=== PATIENT | female | born 1945 | race Caucasian/White ===

== ENCOUNTER → 2018-01-13 17:06 | Outpatient (CLI) | payer MEDICARE, OTHER, SELFPAY ==
--- NOTE | 2018-01-13 17:22 | RAD_ITS ---
STUDY: X-RAY - CERVICAL SPINE REASON FOR EXAM: Female, 72 years old. In both hands for about 1 year now. TECHNIQUE: 4 view(s) of the cervical spine were obtained. COMPARISON: None FINDINGS: Normal anterior atlantoaxial articulation. Normal odontoid process. There is straightening of the normal cervical lordosis. There is multi-level endplate spondylosis. There is multi-level degenerative disc disease with multilevel disc space narrowing. There is multi-level osseous foraminal stenosis. The soft tissue structures are unremarkable. RAD/Cerv Spine 2 or 3 Views IMPRESSION: There are degenerative changes as noted above. Electronically Signed: Hieu Drew MD at 18:29 EDT , Service support ,
== END ==
PROVIDERS: Family Provider Internal Medicine; PCP Internal Medicine; Visit Provider Anesthesiology Pain Medicine
DX: M79.603 Pain in arm, unspecified (principal)
CPT/HCPCS: 72040

== ENCOUNTER → 2018-11-08 | Outpatient (CLI) | payer MEDICARE, OTHER, SELFPAY ==
[2014-11-19 09:37] VITALS: BMI 25.0
--- NOTE | 2018-11-08 17:12 | RAD_ITS ---
STUDY: X-RAY - PELVIS AND BILATERAL HIPS REASON FOR EXAM: Pain mostly in the right hip radiating into right groin, no specific injury. TECHNIQUE: AP view of the pelvis.? 2 views of the right hip, and 2 views of the left hip were obtained. COMPARISON: Radiograph report 03/24/2011. FINDINGS: There is a small pelvic phlebolith. Normal bilateral iliac wings, sacroiliac joints and visualized sacrum. Normal bilateral superior and inferior pubic rami. Normal pubic symphysis. Normal bilateral ischial tuberosities. Normal right acetabulum. There is an osteophyte of the right femoral head, subchondral eburnation of the right femoral head and moderately severe joint space narrowing of the superomedial right hip joint. Normal visualized left femoral head. Normal left acetabulum. Normal left hip joint. RAD/Hips B/L min 2 views w/ Pelvis IMPRESSION: Right hip arthrosis. Electronically Signed: Shalom Jennings MD at 15:51 EDT Tel , Service support ,
== END | disposition home or self-care (01) ==
LOC: RAD 17:07
PROVIDERS: Family Provider Internal Medicine; PCP Internal Medicine; Referring Provider Anesthesiology Pain Medicine; Visit Provider Anesthesiology Pain Medicine
DX: M25.552 Pain in left hip (principal); M25.551 Pain in right hip
CPT/HCPCS: 73521

== ENCOUNTER 2019-02-26 18:25 | Emergency (ER) | payer MEDICARE, OTHER, SELFPAY ==
[2019-02-26 18:26] VITALS: BP 121/59; PULSE 79; RESP 22; TEMP 36.3; O2SAT 98; BMI 27.4
--- NOTE | 2019-02-26 18:56 | ED.VIS.GEN ---
History of Present Illness Chief Complaint: Cough Detail of Chief Complaint: Congestion and cough Informant: Patient Onset: Weeks Context: Gradual Onset Current Severity: Moderate Maximum Severity: Moderate Narrative: Patient states that a couple times a year she will get sinus congestion and drainage down her throat. She typically takes Mucinex and it resolves. She started with the symptoms approximately a week ago but is not getting relief with her Mucinex. She has chest congestion with dry cough. She has not noted fever or chills. Today she started getting left ear pain. Past Medical History - Allergies and Home Meds Allergies/Adverse Reactions: Allergies citalopram Adverse Reaction (Verified 02/26/19 18:26) Other fluoxetine Adverse Reaction (Verified 02/26/19 18:26) Other sertraline Adverse Reaction (Verified 02/26/19 18:26) Other ANXIOUS venlafaxine HCl [From Effexor] Adverse Reaction (Verified 02/26/19 18:26) Other Primary Care Physician: Gloria Morales MD [Primary Care Provider] - Prior records reviewed: Yes Past Medical History: - - Reviewed Smoking Status: Never smoker Review of Systems General: Denies: Chills, Fever Eyes: Denies: Visual changes - bilaterally ENT: Reports: Left ear pain Cardiovascular: Denies: Chest pain Respiratory: Reports: Cough. Denies: Dyspnea, Sputum Gastrointestinal: Denies: Abdominal pain, Nausea, Vomiting, Diarrhea Genitourinary: Denies: Dysuria Musculoskeletal: Denies: Myalgias Skin: Denies: Rash Neurological: Denies: Headache Endocrine: Denies: Polyuria, Polydipsia Hematologic: Denies: Easy bruising Allergy: Denies: Uticaria Physical Exam Vital Signs/Narrative: Vital Signs Temp Pulse Resp BP Pulse Ox 02/26/19 18:26 97.4 F L 79 22 H 121/59 H 98 Inital Vital Signs reviewed: Yes General: Well nourished, Well developed Head: Normocephalic, Atraumatic Eyes: Perrl, EOMI ENT: Moist mucous membranes, TM's clear, - - Mild posterior pharyngeal drainage. Uvula midline. No edema noted. Neck: Supple Cardiovascular: Regular rate, Regular rhythm Respiratory: No distress, CTA bilaterally Abdomen: Soft, Nontender Back: Nontender Extremities: Nontender Skin: Normal color Neurological: Alert, Oriented x3 Psychological: Normal affect Diagnostic/Tx/Re-eval Impressions Chest X-Ray 02/26/19 19:08 IMPRESSION: Normal x-ray examination of the chest. Electronically Signed: Lety Bermudez MD at 19:37 EDT Tel , Service support , 02/26/19 19:08 Chest PA and Lateral [RAD] Stat - Medical Decision Making Test results discussed with the patient. We discussed the possibility of this being viral, but the patient has had symptoms for 1 week and continues to worsen. I will cover her with Zithromax for atypicals as well as give her Tessalon Perles for cough. ED Disposition - Plan for ED Patient: Disposition: Home or Assisted Living Instructions: BRONCHITIS, Antiobiotic Treatment (Adult) Prescriptions: Benzonatate [Tessalon Perle] 200 mg PO TID PRN PRN #20 capsule PRN Reason: Cough Azithromycin [Zithromax] 250 mg PO DAILY #4 tablet Referrals: Gloria Morales MD [Primary Care Provider] - 1 Week
--- NOTE | 2019-02-26 19:08 | RAD_ITS ---
STUDY: X-RAY CHEST REASON FOR EXAM: Female, 73 years old. Cough. TECHNIQUE: PA and lateral chest. COMPARISON: None. FINDINGS: The lungs are clear and expanded. There is no demonstrated pleural abnormality. Normal size heart. Normal mediastinum and dheeraj. Normal visualized pulmonary arteries. Normal visualized aortic arch and descending thoracic aorta. Normal visualized thoracic spine. Normal visualized ribs, clavicles, and shoulders. There is no demonstrated abnormality of the visualized soft tissue structures of the upper abdomen. RAD/Chest PA and Lateral IMPRESSION: Normal x-ray examination of the chest. Electronically Signed: Lety Bermudez MD at 19:37 EDT Tel , Service support ,
[2019-02-26] MEDS: Azithromycin 250 MG Tablet 500 MG PO (19:59)
[2019-02-26] MEDS: Benzonatate 100 MG Capsule PO (19:59)
[2019-02-26 20:00] VITALS: PULSE 80; RESP 20
== END 2019-02-26 20:02 | disposition home or self-care (01) ==
PROVIDERS: Emergency Provider Emergency Medicine; Family Provider Internal Medicine; PCP Internal Medicine
DX: J40 Bronchitis, not specified as acute or chronic (principal)
CPT/HCPCS: 71046; 99283

== ENCOUNTER → 2019-05-02 | Outpatient (CLI) | payer MEDICARE, OTHER, SELFPAY ==
[2019-05-02 10:19] VITALS: BMI 27.6
--- NOTE | 2019-05-02 10:55 | RAD_ITS ---
STUDY: X-RAY - PELVIS AND RIGHT HIP REASON FOR EXAM: Female, 73 years old. Preop TECHNIQUE: 4 views of the pelvis and hip. COMPARISON: Prior study of 11/08/2018 FINDINGS: There is a non-specific bowel gas pattern. Normal visualized soft tissue structures. Normal bilateral iliac wings, sacroiliac joints and visualized sacrum. Normal bilateral superior and inferior pubic rami. Normal pubic symphysis. Normal bilateral ischial tuberosities. There are moderate osteoarthritic changes with joint space narrowing of the right hip. There are mild osteoarthritic changes of the left hip. RAD/HIP, UNI W/ Pelvis 2-3 Views IMPRESSION: Moderately severe osteoarthritic changes of the right hip with joint space narrowing. Mild arthritic changes of the left hip. Electronically Signed: Rogelio Addison MD at 17:51 EDT , Service support ,
== END | disposition home or self-care (01) ==
LOC: RAD 10:50
PROVIDERS: Family Provider Internal Medicine; PCP Internal Medicine; Referring Provider Orthopaedic Surgery; Visit Provider Orthopaedic Surgery
DX: M16.11 Unilateral primary osteoarthritis, right hip (principal)
CPT/HCPCS: 73502

== ENCOUNTER → 2019-05-11 | Outpatient (CLI) | payer MEDICARE, OTHER, SELFPAY ==
[2019-05-10 11:26] VITALS: BMI 27.8
--- NOTE | 2019-05-12 14:08 | STRESSREP_ITS ---
Stress Test Report Date: 05/11/2019 Procedure: Pharmacologic stress nuclear imaging study Indications: Preoperative evaluation Consent: Per the patient Procedure: The patient underwent pharmacologic (Regadenoson) evaluation with a peak heart rate of 127 beats per minute (86 %predicted maximal heart rate) and a peak blood pressure of 122/70 mmHg. The baseline ECG demonstrated normal sinus rhythm, nonspecific ST-T changes. EKG during lexiscan infusion revealed no significant change from baseline. EKG post infusion revealed no significant ischemic changes [There were no cardiac dysrhythmias pretest, during pharmacologic infusion, or recovery]. Patient had some chest pressure after Lexiscan infusion which is likely a nonspecific response. The examination was discontinued secondary to completion of protocol. Impression: 1. Lexiscan stress test test is negative for Lexiscan infusion induced EKG changes of ischemia. 2. Lexiscan stress test test is positive for Lexiscan infusion induced chest pressure which could be a nonspecific response. 3. Results of the nuclear portion of the test is as below Myocardial perfusion imaging study: Technique: The patient was injected with 12 millicuries of technetium 99m Cardiolite and subsequently rest SPECT Cardiolite nuclear imaging was obtained in the horizontal long, vertical long, and short axis views. The patient underwent pharmacologic (Regadenoson) evaluation. Please see above for details. The patient was injected with 35 millicuries of technetium 99m Cardiolite and subsequently stress SPECT Cardiolite nuclear imaging was obtained in the horizontal long, vertical long, and short axis views. A gated Cardiolite study at peak stress was obtained. Interpretation: Rest and stress SPECT Cardiolite nuclear imaging status post realignment, normalization, and attenuation correction demonstrate overall normal myocardial radioisotope uptake. Gated images reveal no significant regional wall motion abnormalities. The reported LVEF is 72 %. Impression: 1. There is no evidence of significant ischemia or infarction. 2. Estimated ejection fraction is 72%. This note was generated with [employer] software. It may contain incorrect words, spelling, and punctuation that were not noted in checking the note before signing.
== END | disposition home or self-care (01) ==
LOC: CVS 06:55
PROVIDERS: Family Provider Internal Medicine; PCP Internal Medicine; Referring Provider Specialist; Visit Provider Specialist
DX: Z01.810 Encounter for preprocedural cardiovascular examination (principal); R94.31 Abnormal electrocardiogram [ECG] [EKG]
CPT/HCPCS: 78452; 93017; A9500; A4216; J2785

== ENCOUNTER 2019-05-16 06:59 | Inpatient (IN) | payer MEDICARE, OTHER, SELFPAY ==
[2019-04-10 14:24] VITALS: BMI 27.4
[2019-05-02 10:19] VITALS: BP 108/59; PULSE 61; RESP 16; TEMP 36.2; O2SAT 99; BMI 27.6
--- NOTE | 2019-05-02 10:27 | SDCEKG_ITS ---
Test Reason : Blood Pressure : / mmHG Vent. Rate : 058 BPM Atrial Rate : 058 BPM P-R Int : 146 ms QRS Dur : 074 ms QT Int : 424 ms P-R-T Axes : 021 -09 -19 degrees QTc Int : 416 ms Sinus bradycardia T wave abnormality, consider anterolateral ischemia Abnormal ECG Confirmed by MANNY WHITLOCK, CORY ([id number]), editor magazine SABINE DAY ([id number]) on 05/03/2019 2:40:44 PM Referred By: Domingo Stark Confirmed By:CORY BRYANT MD
[2019-05-02 10:52] LABS: Hematocrit 39.3 % (37-47); Hemoglobin 12.7 g/dL (12.0-15.0); Mean Corp Hgb Conc 32.3 g/dL (32-36); Mean Corpuscular Hgb 29.8 pg (27.0-32.0); Mean Corpuscular Volume 92.3 fL (81-99); Platelet Count 229 K/mm3 (150-450); RBC Distribution Width CV 13.5 % (11.6-14.6); RBC Distribution Width SD 46.1 fl (35.1-43.9); Red Blood Count 4.26 M/mm3 (4.2-5.4); White Blood Count 7.5 K/mm3 (4.4-11.0)
[2019-05-02 11:00] LABS: International Normalized Ratio 1.1; Partial Thromboplast Time 27.1 Seconds (24.1-36.2); Prothrombin Time (Protime)PT. 13.5 SECONDS (11.7-14.9)
[2019-05-02 11:14] LABS: AST(SGOT) 24 U/L (15-37); Alanine Aminotransfer ALT/SGPT 38 U/L (13-56); Albumin, Serum 3.8 g/dL (3.2-5.0); Alkaline Phosphatase 78 U/L (45-117); Anion Gap 4 (5-15); BUN 26 mg/dL (7-18); BUN/Creat Ratio 25.2 RATIO (10-20); Bilirubin, Direct 0.24 mg/dL (0.00-0.30); Calcium,Total 8.9 mg/dL (8.5-10.1); Chloride 104 mmol/L (98-107); Creatinine, Serum 1.03 mg/dL (0.55-1.02); EST Glomerular Filtration Rate 56 mL/min (>60); Est Glom Filt Rate - Afr Amer 67 mL/min (>60); Globulin 3.5 g/dL (2.2-4.2); Glucose 87 mg/dL (74-106); Potassium 4.1 mmol/L (3.5-5.1); Protein, Total 7.3 g/dL (6.4-8.2); Sodium Level 137 mmol/L (136-145)
[2019-05-12 07:49] VITALS: BMI 27.8
[2019-05-16] VITALS (15 sets, daily range): BP systolic 90–141; BP diastolic 47–83; PULSE 41–70; RESP 16–18; TEMP 35.6–36.7; O2SAT 95–100; BMI 27.6
--- NOTE | 2019-05-16 07:23 | HP.PCM_ITS ---
History and Physical Date of Admission: 05/16/19 Intake Vital Signs 05/12/19 Body Mass Index (BMI) 27.8 Intake Visit Reasons: RIGHT HIP Chief Complaint: right hip. Allergies citalopram Adverse Reaction (Verified 05/10/19 11:59) Other fluoxetine Adverse Reaction (Verified 05/10/19 11:59) Other sertraline Adverse Reaction (Verified 05/10/19 11:59) Other venlafaxine HCl [From Effexor] Adverse Reaction (Verified 05/10/19 11:59) Other [facility] Medical History (Updated 05/10/19 @ 12:11 by Sharee Renae) Preop cardiovascular exam (Acute) Abnormal EKG (Acute) Anxiety (Chronic) Chronic kidney disease, stage 3 (moderate) (Chronic) Neuropathy (Chronic) Polyarthritis (Chronic) Spinal stenosis (Chronic) Vitamin D deficiency (Chronic) Neuropathy (Resolved) Surgical History (Updated 05/10/19 @ 12:04 by Sharee Renae) History of bilateral cataract extraction (Resolved) History of tonsillectomy (Resolved) History of total right knee replacement (Resolved) Family History (Updated 05/10/19 @ 12:05 by Sharee Renae) Father Heart disease Social History (Updated 05/12/19 @ 11:53 by Domingo Stark DO) Smoking Status: Never smoker alcohol intake: never substance use type: does not use caffeine: Yes Type: carbonated beverages Number of servings: 1, tea Number of servings: 1 HPI RIGHT HIP: Details: Parts of this documentation were recorded by a scribe, this documentati on accurately reflects the service provided and the decisions made by me, Domingo Stark DO 05/12/19 0749. KEYONA GARCIA is a 73 year old F here today to proceed with surgery on wednesday05/16/19. She did have a stress test and EKG yesterday but we do not have clearance letter yet. She continues to have pain with ambulation and sit to stand. Denies numbness, tingling or other associated symptoms. Ortho Exam Right Hip Skin: No Ecchymosis, No soft tissue swelling, No Erythema internal rotation @90 degree flexion: 8 degrees external rotation @90 degree extension: 40 degrees Special Tests: Yes C sign, Yes FADIR, Yes ITB tenderness Homans Sign: No HIP: pain with IR and ER Supplemental Info 02/26/19 x-ray right hip: Severe right hip OA subchondral cyst sclerosis and joint space narrowing Assessment & Plan Problems 1. Primary osteoarthritis of right hip M16.11 Plan Instructed to d/c the aspirin and we will call Credit Administration Manager regarding an actual clearance for surgery. We will postpone if Dr Jones does not recommend surgery wednesday. Instructed to bring comfortable clothes to the hospital. Risks, benefits and alternatives of surgery reviewed including but not limited to bleeding, infection, nerve, artery and/or tissue damage, fracture, VTE, leg l ength discrepancy, dislocation, need for hip precautions, continued pain and expected post-operative course. Follow up post op or sooner if pain, swelling, numbness or associated symptoms, or concerns develop. All questions answered. Patient in agreement of plan. Coding Level of Care Code Off vis,est,level 2 Diagnoses Primary osteoarthritis of right hip M16.11 ??Osteoarthritis type: primary I have re-examined the patient. There are no clinical changes since date of exam
[2019-05-16 07:56] LABS: Bedside Glucose 62 mg/dL (70-110)
[2019-05-16] MEDS: Acetaminophen 500 MG Tablet 1000 MG PO ×3 (07:57→22:39)
[2019-05-16] MEDS: Gabapentin 600 MG Tablet PO (07:57)
[2019-05-16] MEDS: Scopolamine 1mg/72hr Patch 1 PATCH TRANSDERM. (07:57)
[2019-05-16] MEDS: Magnesium Sulfate 4gm/100mL 4 GM/100 ML IV.SOLN. IV (08:00)
[2019-05-16] MEDS: Lactated Ringers 1,000 ML 100 ML IV (08:08)
[2019-05-16] MEDS: Cefazolin 2 GM in 0.9% Normal Saline 100 ML IV (09:38)
--- NOTE | 2019-05-16 11:19 | RAD_ITS ---
STUDY: X-RAY - PELVIS AND RIGHT HIP REASON FOR EXAM: Female, 73 years old. Total hip replacement. TECHNIQUE: 2 views of the pelvis and hip. COMPARISON: Comparison is made with prior study May 02, 2019. FINDINGS: The patient is status post right total hip replacement. There is good alignment. Postoperative soft tissue changes. RAD/Hip Min 2 Views (Portable) IMPRESSION: Status post right hip replacement. There is good alignment. Postoperative soft tissue changes. Electronically Signed: Marcello Mireles, at 14:16 EDT , Service support ,
[2019-05-16] MEDS: Lactated Ringers 1,000 ML 125 ML IV ×2 (11:20→16:48)
--- NOTE | 2019-05-16 11:34 | OP.PCM_ITS ---
Report of Operation Date of Procedure: 05/16/19 Description of Surgical Findings:: Preoperative diagnosis: DJD right hip Postoperative diagnosis: Same Procedure: Right total hip arthroplasty Implants: Jessica Accolade II stem size 3 127 degree neck angle 10.5 neck length before mm cup with 16 mm cancellous screw 36 mm ceramic head Anesthesia: Spinal EBL: 250 cc Complications: None Condition: Stable to PACU Indication for procedure: This is a 73-year-old female who has had long-standing arthrosis of the hip who has failed conservative treatment and wished to undergo total hip arthroplasty. We did discuss operative versus nonoperative intervention including risks of bleeding, infection , nerve artery tissue damage, need for further surgery, fracture, leg length discrepancy dislocation blood clot and need for postoperative physical therapy and postoperative expectations. An informed consent was signed. Procedure: Patient was met in the preoperative holding area once again the operative extremity was identified by both patient and physician and was marked. Patient was met by anesthesia and a spinal was placed. A Boo catheter was placed patient was then positioned in the lateral decubitus position on a well- padded pegboard with an axillary roll. All bony prominences were checked and padded. The patient was prepped and draped in the usual sterile fashion. A timeout was called to ensure the proper patient procedure and extremity were being contemplated. Anatomic landmarks were palpated and marked for a standard posterior lateral approach. A 10 blade scalpel was used to make a posterior incision through the skin and subcutaneous tissue. In retractors were used and electrocautery was used to maintain meticulous hemostasis and dissect full- thickness flaps until the gluteal fascia was reached. The gluteal fascia was incised in line with the gluteal fibers. The bursal tissue was then freed from the underside and a Charnley retractor was placed. The fat pad was elevated off of the external rotators with electrocautery and the external rotators were dissected off of the greater trochanter including the piriformis and were tagged with #1 Ethibond for later repair. The joint capsule opened with posterior trapdoor technique. The hip was surgically dislocated. Hohmann was placed around the lesser trochanter. A neck cutting guide was used to agapito the neck with a Bovie and an oscillating saw was used complete the femoral neck cut. The femoral head was then removed and sized. We then turned our attention to the acetabulum. A Bovie was used to make a perforation in the anterior joint capsule and a pointed Hohmann was placed this was repeated in the 6 o'clock position a wide som was placed there. With a long handled knife the labral and pulvinar tissue were removed. We then began sequential reaming until the appropriate size was achieved. We then fit the acetabular shell in place with good career resource technician to the acetabulum. We then proceeded to place a posterior superior screw by drilling first measuring and inserting the screw. We then inserted a trial liner. And turned our attention back to the femur at this point a femoral elevator was used. As well as a pointed wide Hohmann around the lesser trochanter and a Hohmann to help retract the gluteus medius. A box chisel was used to remove excess lateral neck followed by a canal finder and a lateralizing reamer. This was followed by sequential broaches. Attention was made of the version within the canal. Once the final broach was seated we then trialed reduced the hip it was determined that a 127 degree neck angle with a 7.5 neck length was the appropriate size. We then checked ability with shuck testing as well as flexion and internal rotation. then proceeded with hip extension and checked leg lengths at the knees and heels. At this point trials were removed. A posterior lipped liner was inserted to the cup. The femoral stem was inserted. We re-trialed and then proceeded to impact the femoral head onto the Germain taper. We then surgically reduce the hip check stability again and leg lengths and were satisfied. Betadine rinse was allowed to sit for 5 minutes while everyone changed their gloves. Thorough irrigation was performed. Followed by closure of the external rotators with #2 FiberWire followed by closure of gluteal fascia with #1 Ethibond. 0 Vicryl fat stitches and 2-0 Vicryl subcutaneous stitches and sergei in the skin. Dressing was applied Mepilex Ag and an abduction pillow was placed. Patient tolerated the procedure well there was no intraoperative complications all counts were correct and the patient was brought back to the PACU in stable condition
[2019-05-16] MEDS: Cefazolin 1 GM/50 ML BAG IV ×2 (12:00→20:05)
[2019-05-16] MEDS: oxyCODONE 5 MG Tablet PO ×2 (15:10→20:31)
[2019-05-16] MEDS: Senna/Docusate Sodium 1 Tablet 2 TABLET PO (22:39)
[2019-05-16] MEDS: Psyllium 1 PACKET PO (22:39)
[2019-05-16] MEDS: busPIRone 5 MG Tablet 10 MG PO (22:39)
[2019-05-16] MEDS: Metoprolol(XL)Succ 25 MG Tablet PO (22:46)
[2019-05-16] MEDS: HYDROmorphone 1 MG/ML Syringe 0.5 MG IV (22:54)
[2019-05-17] VITALS (7 sets, daily range): BP systolic 99–123; BP diastolic 41–58; PULSE 63–80; RESP 17–18; TEMP 36.3–37.1; O2SAT 96–99
[2019-05-17] MEDS: Cefazolin 1 GM/50 ML BAG IV (03:37)
[2019-05-17] MEDS: oxyCODONE 5 MG Tablet PO ×2 (05:44→10:06)
[2019-05-17] MEDS: APIXABAN 2.5 MG TABLET PO ×2 (05:45→21:17)
[2019-05-17] MEDS: Acetaminophen 500 MG Tablet 1000 MG PO ×2 (05:46→13:33)
[2019-05-17 06:29] LABS: Hemoglobin 11.5 g/dL (12.0-15.0); Mean Corp Hgb Conc 32.9 g/dL (32-36); Mean Corpuscular Hgb 30.7 pg (27.0-32.0); Mean Corpuscular Volume 93.3 fL (81-99); Mean Platelet Vol. 10.1 fl (6.2-12.0); Platelet Count 193 K/mm3 (150-450); RBC Distribution Width CV 13.4 % (11.6-14.6); RBC Distribution Width SD 46.1 fl (35.1-43.9); Red Blood Count 3.75 M/mm3 (4.2-5.4); White Blood Count 11.2 K/mm3 (4.4-11.0)
[2019-05-17 06:50] LABS: Anion Gap 5 (5-15); BUN 17 mg/dL (7-18); BUN/Creat Ratio 17.6 RATIO (10-20); Chloride 105 mmol/L (98-107); Creatinine, Serum 0.96 mg/dL (0.55-1.02); EST Glomerular Filtration Rate 60 mL/min (>60); Est Glom Filt Rate - Afr Amer 73 mL/min (>60); Estimated Creatinine Clearance 40.66 ml/min; Glucose 102 mg/dL (74-106); Potassium 3.7 mmol/L (3.5-5.1); Sodium Level 139 mmol/L (136-145)
--- NOTE | 2019-05-17 07:15 | PCM.DC.ORTHO ---
Discharge Diet: No Restrictions Call your doctor if you observe: Shortness of breath, Chest pain, Calf discomfort Additional Instructions: Begin daily showering warm water antibacterial soap postop day #3( 72hrs Post-operatively) and then daily. Leave the dressing on for 72 hours postoperatively then may remove prior to first shower and change dressing daily after this until no drainage for 2 consecutive days then may leave open to air. Follow hip precautions as reviewed by hospital physical therapist. Wear compression stockings may remove at night. call with any concerns Allergies/Adverse Reactions: Allergies citalopram Adverse Reaction (Verified 05/10/19 11:59) Other fluoxetine Adverse Reaction (Verified 05/10/19 11:59) Other sertraline Adverse Reaction (Verified 05/16/19 07:48) ANXIETY ANXIOUS venlafaxine HCl [From Effexor] Adverse Reaction (Verified 05/10/19 11:59) Other Medications to take at Discharge Buspirone HCl 10 mg PO BID 11/06/14 Cholecalciferol (VIT D3) [Vitamin D3] 5,000 unit PO DAILY 11/06/14 Metoprolol(XL)Succ [Toprol Xl (Beta Lito)] 25 mg PO BID 11/06/14 Multivitamins,Therapeutic [Multivitamin] 1 tab PO DAILY 11/06/14 [place]-3S/Dha/Epa/Fish Oil/D3 [Fish Oil-Vit D3 Softgel] 1 ea PO DAILY 11/06/14 Psyllium [Metamucil] 1 packet PO BID 11/06/14 traZODone [Desyrel] 50 mg PO QHS PRN 11/06/14 Aspirin [Aspir 81] 81 mg PO DAILY 05/02/19 Docusate Sodium [Stool Softener] 100 mg PO BID 05/02/19 Glucos Sul 2Kcl/MSM/Chond/C/Mn [Glucosamine Chondroitin Cap] 1 ea PO BID 05/02/19 magnesium oxide 400 mg (241.3 mg magnesium) tablet 400 mg PO DAILY 05/05/19 Acetaminophen [Tylenol] 1,000 mg PO Q8 #50 tab 05/17/19 Apixaban [Eliquis] 2.5 mg PO BID 21 Days #42 tab 05/17/19 Oxycodone [Oxyir] 5 - 10 mg PO Q4H PRN PRN #60 tablet 05/17/19 The following prescriptions were given: Apixaban [Eliquis] 2.5 mg PO BID 21 Days #42 tab Transmission Status: Pending to [id number] Oxycodone [Oxyir] 5 - 10 mg PO Q4H PRN PRN #60 tablet PRN Reason: Pain Score 4-10/10 Transmission Status: Sent to [id number] Acetaminophen [Tylenol] 1,000 mg PO Q8 #50 tab Transmission Status: Pending to [id number] Primary Care Physician: Glroia Morales MD [Primary Care Provider] - Test Results: Test results from this visit will be discussed in further detail at your follow-up appointment, if applicable. Please Follow Up With: Domingo Stark DO - 2 weeks
--- NOTE | 2019-05-17 07:17 | DS.PCM_ITS ---
Discharge Date and Diagnosis Date of Admission: 05/16/19 Date of Discharge: 05/17/19 Hospital Course and Treatment Operations: total hip replacement Summary of Care Provided: The patient is a 73 year old F underwent right total hip arthroplasty on date of admission without any intraoperative complications. Patient has failed can conservative treatment wished to undergo the elective procedure. Patient underwent the procedure without any intraoperative complications did receive pre-and postoperative antibiotics which were discontinued within 23 hours postoperatively. Patient did receive trans-examined acid and vital signs remained stable postoperatively as well as hemoglobin and hematocrit and did not require any blood transfusion. Seen by physical therapy did progress ambulation was started on both mechanical chemical DVT prophylaxis in the form of SCDs YEIMI hose and Eliquis 2.5 mg twice daily for which patient will continue for 3 weeks post hospital discharge. To be set up with home health care at home physical therapy will follow-up in the office in 2 weeks for staple removal wound check and conversion to outpatient physical therapy. Subjective: Denies fevers chills nausea vomiting shortness of breath chest pain dizziness lightheadedness pain controlled ambulating with physical therapy - Physical Exam Vitals/I&O's: Vital Signs Temp Pulse Resp BP Pulse Ox 97.9 F 67 18 105/42 L 98 05/17/19 03:58 05/17/19 03:58 05/17/19 03:58 05/17/19 03:58 05/17/19 03:58 Oxygen Flow Rate (L/min) 6 Oxygen Delivery Method Room Air Weight: 151 lb 0.266 oz Body Mass Index (BMI) 27.6 Intake and Output for Last 24 Hours 05/15/19 05/16/19 05/17/19 23:59 23:59 23:59 Intake Total 3205 / 5205 3050 / 3050 Output Total 1850 / 2350 1000 / 1000 Balance 1355 / 2855 2049 / 2049 General: Alert, Oriented x3, No apparent distress Extremities: - - Right lower extremity neurovascularly intact palpable pedal pulses intact sensation light touch throughout intact ankle and great toe dorsiflexion plantarflexion of ankle Artman soft dressing clean dry and intact Laboratory Results 05/16/19 07:41: POC Glucose 62 L 05/17/19 06:16: WBC 11.2 H, RBC 3.75 L, Hgb 11.5 L, Hct 35.0 L, MCV 93.3, MCH 30.7, MCHC 32.9, RDW Std Deviation 46.1 H, RDW Coeff of Edmund 13.4, Plt Count 193, MPV 10.1 05/17/19 06:16: Sodium 139, Potassium 3.7, Chloride 105, Carbon Dioxide 29.0, Anion Gap 5, BUN 17, Creatinine 0.96, Estim Creat Clear Calc 40.66, Est GFR (MDRD) Af Amer 73, Est GFR (MDRD) Non-Af 60, BUN/Creatinine Ratio 17.6, Glucose 102, Calcium 8.0 L Current Medications Acetaminophen (Tylenol) 1,000 mg PO Q8 [facility] Last Admin: 05/17/19 05:46 Dose: 1,000 mg Documented by: Apixaban (Eliquis) 2.5 mg PO BID [facility] Last Admin: 05/17/19 05:45 Dose: 2.5 mg Documented by: Buspirone HCl (Buspar) 10 mg PO BID [facility] Last Admin: 05/16/19 22:39 Dose: 10 mg Documented by: Cholecalciferol (Vitamin D) 5,000 unit PO DAILY [facility] Hydromorphone HCl (Dilaudid Inj) 0.5 mg IV Q2H PRN PRN PRN Reason: BREAKTHROUGH PAIN (>4/10) Last Admin: 05/16/19 22:54 Dose: 0.5 mg Documented by: Lactated Ringer's () 1,000 mls @ 125 mls/hr IV .Q8H [facility] Last Infusion: 05/17/19 04:13 Dose: Infused Documented by: Sodium Chloride () 250 mls @ 15 mls/hr IV .[id number] PRN PRN Reason: Saline Flush Insulin Human Lispro (Humalog Kwikpen (Bkc)) 1 - 6 unit SC Q4H PRN PRN; Protocol PRN Reason: BG>/= 180, SEE PROTOCOL Magnesium Oxide (Mag-Ox 400) 400 mg PO DAILY [facility] Metoprolol Succinate (Toprol Xl (Beta Lito)) 25 mg PO BID [facility] Last Admin: 05/16/19 22:46 Dose: 25 mg Documented by: [facility] Ondansetron HCl (Zofran) 4 mg IV Q6H PRN PRN PRN Reason: NAUSEA Oxycodone HCl (Oxyir) 5 - 10 mg PO Q4H PRN PRN PRN Reason: Pain Score 4-10/10 Last Admin: 05/17/19 05:44 Dose: 10 mg Documented by: Psyllium Hydrophilic Mucilloid (Metamucil) 1 packet PO BID [facility] Last Admin: 05/16/19 22:39 Dose: 1 packet Documented by: Senna/Docusate Sodium (Senokot-S, Emma-Colace) 2 tablet PO BID [facility] Last Admin: 05/16/19 22:39 Dose: 2 tablet Documented by: Sodium Chloride () 5 - 15 ml IV UD PRN PRN Reason: SALINE FLUSH Trazodone HCl (Desyrel) 50 mg PO QHS PRN PRN Reason: SLEEP Discharge Diet: No Restrictions Call your doctor if you observe: Shortness of breath, Chest pain, Calf discomfort Home Medications: Medications to take at Discharge Buspirone HCl 10 mg PO BID 11/06/14 Cholecalciferol (VIT D3) [Vitamin D3] 5,000 unit PO DAILY 11/06/14 Metoprolol(XL)Succ [Toprol Xl (Beta Lito)] 25 mg PO BID 11/06/14 Multivitamins,Therapeutic [Multivitamin] 1 tab PO DAILY 11/06/14 [place]-3S/Dha/Epa/Fish Oil/D3 [Fish Oil-Vit D3 Softgel] 1 ea PO DAILY 11/06/14 Psyllium [Metamucil] 1 packet PO BID 11/06/14 traZODone [Desyrel] 50 mg PO QHS PRN 11/06/14 Aspirin [Aspir 81] 81 mg PO DAILY 05/02/19 Docusate Sodium [Stool Softener] 100 mg PO BID 05/02/19 Glucos Sul 2Kcl/MSM/Chond/C/Mn [Glucosamine Chondroitin Cap] 1 ea PO BID 05/02/19 magnesium oxide 400 mg (241.3 mg magnesium) tablet 400 mg PO DAILY 05/05/19 Acetaminophen [Tylenol] 1,000 mg PO Q8 #50 tab 05/17/19 Apixaban [Eliquis] 2.5 mg PO BID 21 Days #42 tab 05/17/19 Oxycodone [Oxyir] 5 - 10 mg PO Q4H PRN PRN #60 tablet 05/17/19 Following Prescrptions Were Given to Patient: Apixaban [Eliquis] 2.5 mg PO BID 21 Days #42 tab Transmission Status: Pending to [facility] Oxycodone [Oxyir] 5 - 10 mg PO Q4H PRN PRN #60 tablet PRN Reason: Pain Score 4-10/10 Transmission Status: Sent to [facility] Acetaminophen [Tylenol] 1,000 mg PO Q8 #50 tab Transmission Status: Pending to [facility] Primary Care Physician: Gloria Morales MD [Primary Care Provider] - Please Follow Up With: Domingo Stark DO - 2 weeks Additional Instructions: Begin daily showering warm water antibacterial soap postop day #3( 72hrs Post- operatively) and then daily. Leave the dressing on for 72 hours postoperatively then may remove prior to first shower and change dressing daily after this until no drainage for 2 consecutive days then may leave open to air. Follow hip precautions as reviewed by hospital physical therapist. Wear compression stockings may remove at night. call with any concerns Medical Necessity - Tobacco Use Smoking Status: Never smoker Tobacco Use: Non-smoker Meaningful Use Info Meaningful Use Diagnoses (Choose all that apply): None applicable
[2019-05-17] MEDS: Psyllium 1 PACKET PO ×2 (07:46→21:17)
[2019-05-17] MEDS: busPIRone 5 MG Tablet 10 MG PO ×2 (07:46→21:17)
[2019-05-17] MEDS: Magnesium Oxide 400 MG Tablet PO (07:46)
[2019-05-17] MEDS: Senna/Docusate Sodium 1 Tablet 2 TABLET PO ×2 (07:46→21:17)
[2019-05-17] MEDS: Multivitamins,Therapeutic Tablet 1 TABLET PO (07:46)
[2019-05-17] MEDS: Metoprolol(XL)Succ 25 MG Tablet PO ×2 (10:11→21:17)
--- NOTE | 2019-05-17 13:00 | CASEMGMT ---
SARA INGRAM Face to Face with patient for initial transition planning/care coordination assessment. SARA INGRAM introduced self and role at [facility]. Patient lying in bed, alert and oriented. Patient willing to participate in assessment and is able to answer all questions appropriately. Care providers, pharmacy, and demographics verified. Patient wishes to discharge home and would like [facility] for therapy. SARA INGRAM provided list and patient would like [facility]. RN NATALY sent referral to [facility] and they are able to the accept the patient. SARA INGRAM updated the patient. Patient states she has no further needs or concerns at this time. CM to follow for discharge planning needs that may arise. PCP: Carmen Specialists: neila Stark; Basali, pain Preferred Pharmacy: [facility] Insurance: [facility] Prescription Benefit: yes Living Will/HPOA: yes, Landry Ruffin LNOK: Friend Living Arrangements: [place] with 2 stairs to enter the home. Transportation: friend DME/HHC: Patient has walker, shower chair, raised toilet, cane, rollator. HHC setup with [facility] for at discharge. Disposition Plan: Patient to discharge home with [facility], support from friends, and follow-up plans in place. Wendi HOPE, RN, CM
[2019-05-17] MEDS: HYDROcodone Bitartrate/Apap 5/325 Tablet PO (14:43)
[2019-05-18] MEDS: HYDROcodone Bitartrate/Apap 5/325 Tablet PO ×2 (01:08→13:17)
[2019-05-18 02:22] VITALS: BP 138/65; PULSE 67; RESP 18; TEMP 36.9; O2SAT 95
[2019-05-18] MEDS: Acetaminophen 500 MG Tablet 1000 MG PO (06:06)
[2019-05-18 06:51] LABS: Hematocrit 35.4 % (37-47); Hemoglobin 11.5 g/dL (12.0-15.0); Mean Corp Hgb Conc 32.5 g/dL (32-36); Mean Corpuscular Hgb 30.4 pg (27.0-32.0); Mean Corpuscular Volume 93.7 fL (81-99); Mean Platelet Vol. 10.3 fl (6.2-12.0); Platelet Count 187 K/mm3 (150-450); RBC Distribution Width CV 13.8 % (11.6-14.6); Red Blood Count 3.78 M/mm3 (4.2-5.4); White Blood Count 11.1 K/mm3 (4.4-11.0)
[2019-05-18 07:05] VITALS: O2SAT 97
[2019-05-18 08:23] VITALS: BP 115/66; PULSE 82; RESP 18; TEMP 37.1; O2SAT 100
[2019-05-18] MEDS: Multivitamins,Therapeutic Tablet 1 TABLET PO (08:55)
[2019-05-18] MEDS: busPIRone 5 MG Tablet 10 MG PO (08:57)
[2019-05-18] MEDS: Magnesium Oxide 400 MG Tablet PO (08:58)
[2019-05-18] MEDS: APIXABAN 2.5 MG TABLET PO (08:58)
[2019-05-18] MEDS: Senna/Docusate Sodium 1 Tablet 2 TABLET PO (08:59)
[2019-05-18] MEDS: Psyllium 1 PACKET PO (08:59)
[2019-05-18 09:00] VITALS: PULSE 84
[2019-05-18] MEDS: Metoprolol(XL)Succ 25 MG Tablet PO (09:00)
--- NOTE | 2019-05-18 12:28 | PCM.PN.ORT ---
Subjective: Patient states that she is doing much better today. She states that her pains have lessened quite a bit and has been able to be more comfortable and thus able to move around more today. She denies any shortness of breath, nausea/vomiting, fevers, calf pains, numbness or tingling. Objective: PAtient seated upright in chair for evaluation. She is alert and oriented x 3 and is cooperative and conversive. Incision site still has occlusive dressing over it. There is no acute erythema or ecchymosis noted. There is some minor swelling anteriorly noted. She does not have tenderness on palpation over or around the incision site. There is no warmth noted Compartments are soft and she has no calf pains and negative homans Neurovascularly intact at this time Normal distal pedal pulses. Motor function intact of ankle/foot/toes. - Physical Exam Vitals/I&O's: Vital Signs Temp Pulse Resp BP Pulse Ox 98.8 F 84 18 115/66 100 05/18/19 08:23 05/18/19 09:00 05/18/19 08:23 05/18/19 08:23 05/18/19 08:23 Oxygen Flow Rate (L/min) 6 Oxygen Delivery Method Room Air Weight: 151 lb 0.266 oz Body Mass Index (BMI) 27.6 Intake and Output for Last 24 Hours 05/16/19 05/17/19 05/18/19 23:59 23:59 23:59 Intake Total 3205 / 5205 4090 / 4090 60 / 60 Output Total 1850 / 2350 1850 / 1850 120 / 120 Balance 1355 / 2855 2240 / 2240 -60 / -60 General: Alert, Oriented x3, Cooperative, No apparent distress Lungs: Normal air movement Skin: No rashes, No breakdown Neurological: Sensory exam intact to light touch and pain Psych/Mental Status: Normal Affect, Appropriate Laboratory Results 05/18/19 06:30: WBC 11.1 H, RBC 3.78 L, Hgb 11.5 L, Hct 35.4 L, MCV 93.7, MCH 30.4, MCHC 32.5, RDW Std Deviation 47.0 H, RDW Coeff of Edmund 13.8, Plt Count 187, MPV 10.3 Current Medications Acetaminophen (Tylenol) 1,000 mg PO Q8 [facility] Last Admin: 05/18/19 06:06 Dose: 1,000 mg Documented by: Hydrocodone Bitart/Acetaminophen ([place] 5mg-325mg) 1 - 2 tablet PO Q4H PRN PRN PRN Reason: Pain Score 1-10/10 Last Admin: 05/18/19 01:08 Dose: 2 tablet Documented by: Apixaban (Eliquis) 2.5 mg PO BID [facility] Last Admin: 05/18/19 08:58 Dose: 2.5 mg Documented by: Buspirone HCl (Buspar) 10 mg PO BID [facility] Last Admin: 05/18/19 08:57 Dose: 10 mg Documented by: Cholecalciferol (Vitamin D) 5,000 unit PO DAILY [facility] Last Admin: 05/18/19 09:00 Dose: 5,000 unit Documented by: Hydromorphone HCl (Dilaudid Inj) 0.5 mg IV Q2H PRN PRN PRN Reason: BREAKTHROUGH PAIN (>4/10) Last Admin: 05/16/19 22:54 Dose: 0.5 mg Documented by: Sodium Chloride () 250 mls @ 15 mls/hr IV .[id number] PRN PRN Reason: Saline Flush Insulin Human Lispro (Humalog Kwikpen (Bkc)) 1 - 6 unit SC Q4H PRN PRN; Protocol PRN Reason: BG>/= 180, SEE PROTOCOL Magnesium Oxide (Mag-Ox 400) 400 mg PO DAILY [facility] Last Admin: 05/18/19 08:58 Dose: 400 mg Documented by: Metoprolol Succinate (Toprol Xl (Beta Lito)) 25 mg PO BID [facility] Last Admin: 05/18/19 09:00 Dose: 25 mg Documented by: [facility]ivit[facility] ([facility]amin) [facility] Admin: 05/18/19 08:55 Dose: 1 tablet Documented by: Ondansetron HCl (Zofran) 4 mg IV Q6H PRN PRN PRN Reason: NAUSEA Oxycodone HCl (Oxyir) 5 - 10 mg PO Q4H PRN PRN PRN Reason: Pain Score 4-10/10 Last Admin: 05/17/19 10:06 Dose: 10 mg Documented by: Psyllium Hydrophilic Mucilloid (Metamucil) 1 packet PO BID [facility] Last Admin: 05/18/19 08:59 Dose: 1 packet Documented by: Senna/Docusate Sodium (Senokot-S, Emma-Colace) 2 tablet PO BID [facility] Last Admin: 05/18/19 08:59 Dose: 2 tablet Documented by: Sodium Chloride () 5 - 15 ml IV UD PRN PRN Reason: SALINE FLUSH Trazodone HCl (Desyrel) 50 mg PO QHS PRN PRN Reason: SLEEP Medical Necessity - Tobacco Use Smoking Status: Never smoker Tobacco Use: Non-smoker Assessment/Plan All Active Problems (Last Reviewed 05/10/19 @ 12:28 by Karon Jones MD) Preop cardiovascular exam (Acute) Abnormal EKG (Acute) Day 2 post right total hip arthroplasty PAtient doing better today with better pain control and therefore is able to tolerate more activity/movement She does feel comfortable at this time going home There are no signs of infection around occlusive dressing She is neurovascularly intact at this time and intact motor function of the ankle/foot/toes Compartments soft and No signs of DVT normal distal pedal pulses Patient to continue to be weight bearing as tolerated Continue compression hose Continue icing the area PAtient will be doing some home PT upon discharge PAtient to continue anti-coagulant as directed x 3 weeks. Patient already filled her Oxycodone from [facility] before this could be cancelled and therefore [place] sent to [facility] was cancelled. She can take the Oxycodone and can take the tylenol 1000mg Q 8 hours (this was cancelled as intent was to switch to norco). Can swith to [place] once this oxycodone prescription runs out.
--- NOTE | 2019-05-18 12:57 | CASEMGMT ---
Addendum entered by Gilberto Jimenez 05/18/19 13:03: SARA INGRAM to room to talk with pt. Pt denies further needs/concerns with going home @ discharge. Original Note: SARA INGRAM NOTE: Call placed to Nely @ [facility]. VM message left to inform her that pt is discharging today. Rogelio HOPE RN CM
[2019-05-18 13:30] VITALS: BP 131/66; PULSE 80; RESP 16; TEMP 36.7; O2SAT 98
--- NOTE | 2019-05-18 13:37 | NURSING ---
PT AWAITING RIDE TO GET OFF WORK TO COME PICK HER UP
== END 2019-05-18 16:42 | disposition home or self-care (01) | DRG 470 ==
LOC: ACINP 07:00 → MS3 05-23 07:31
PROVIDERS: Anesthesiology; Admitting Provider Orthopaedic Surgery; Family Provider Internal Medicine; PCP Internal Medicine; Referring Provider Orthopaedic Surgery; Visit Provider Orthopaedic Surgery
PROC: 0SR90JZ Replacement of Right Hip Joint with Synthetic Substitute, Open Approach (ICD-10-PCS; CPT 27130; principal; 2019-05-16 08:45)
DX: M16.11 Unilateral primary osteoarthritis, right hip (principal); F41.9 Anxiety disorder, unspecified; G62.9 Polyneuropathy, unspecified; E55.9 Vitamin D deficiency, unspecified; Z79.899 Other long term (current) drug therapy; I12.9 Hypertensive chronic kidney disease with stage 1 through stage 4 chronic kidney disease, or unspecified chronic kidney disease; N18.3 Chronic kidney disease, stage 3 (moderate)
CPT/HCPCS: 36415; 73502; 80048; 80076; 82962; 85027; 85610; 85730; 87081; 93005; 97110; 97116; 97162; 97166; 97530; 97535; C1713; C1776; J7120

== ENCOUNTER 2019-06-29 15:00 | Outpatient (RCR) | payer MEDICARE, OTHER, SELFPAY ==
[2019-05-29 16:13] VITALS: BMI 27.6
--- NOTE | 2019-06-06 08:09 | HP.PTEVAL_ITS ---
Patient's Visit Information KEYONA GARCIA is a 73 year old F referred to Physical Therapy by Domingo Stark DO with a diagnosis of R SARAH. Date of Evaluation: 06/05/19 Physical Therapist: Osorio Perez DPT - Visit Plan Frequency: 2-3x /Week Duration: 4-6 Weeks Plan: Start with ROM, gentle strengthening, and functional mobility. May use modalities as needed. - Subjective Findings: Pt. is here today for her initial evaluation with diagnosis of R SARAH. DOS: 05/16/19, posterior/lateral approach. Pt. reports doing well with HH PT, but reports being very afraid of dislocation. Pt. is walking with rollator and home and arrives today using one. Pt. reports having decreased pain since starting tramdol. Pt. denies N/T in either LE. Pt. reports no dizziness or shortness of breath. She has had her sergei removed and no skin irritations or draining. Pt. is hopeful to increase her ROM and strength in order to take care of her puppy. - Pain R hip Pain Intensity (Out of 10): 3 Pain Intensity Range: 1, 5 - Objective POSTURE: Pt. has nromal posture in stance. Pt. has equal wt. shift between bilateral LEs. Pt. has normal pelvic positioning. PALPATION: pt. has slight tenderness at posterior/lateral hip. No anterior hip pain. Normal healing incision. NEURO: Pt. has normal sensation and normal DTR of B LEs. ROM: R hip- flexion 90deg, abd 40deg, ext 10deg, ER/IR- not tested. Pt. has tight HS bilateral, 50deg in 90/90. MMT: LLE- 5-/5 throughout. RLE- ankle 5/5 throughout; knee- ext 5-/5, flexion 4+/5; hip- SLR x10 with, abd 4/5, ext 4/5. Core strength- poor. GAIT: Pt. amnbulates with rollator. Pt. has decent step length and good posture. No antalgic pattern noted with AD. Pt. does have antalg ic pattern during R stance phase without AD. STAIRS: Step to pattern with BHR without LOB. - Goals Goal 1:: Pt. to be I with HEP. Goal Time Frame: 4-6 Weeks Goal 2:: Pt. to sleep throughout the night without increase in symptoms. Goal Time Frame: 4-6 Weeks Goal 3:: Pt. to ambulate unlimited distances without AD without increase in symptoms. Goal Time Frame: 4-6 Weeks Goal 4:: Pt. to having increased R LE strength by 1/2 grade without increase in symptoms. Goal Time Frame: 4-6 Weeks Goal 5:: Pt. to negotiate 1 flight of steps with 1 HR with reciprocal pattern withotu increase in symptmos. - Rehabilitation Potential Physical Therapy Diagnosis: Pt. has signs and symptoms consistent with R SARAH, posterior/lateral approach. Pt. has subsequent weakness, difficulty walking, increaed pain and decreased ROM. Pt. would benefit from PT to work on the above limitations progressing back to all reacreational and household activities. Rehabilitation Potential: Excellent - Anticipated Interventions Patient/Client Instruction: Educate patient on: Condition, Plan of Care, Risk Factors, Benefits of Fitness Program For the Purpose of:: To facilitate caregiver knowledge, To improve self management, To prevent re-injury, To improve ability to perform tasks related to life management Therapeutic Exercise to Include: Strength training, Power training, Endurance training, Balance training, Postural training, Flexibilty training, Gait and locomotor training, Passive ROM, Active ROM, Dynamic Lumbar Stabilization For the Purpose of:: To decrease pain, To decrease swelling/inflammation, To increase ROM, To improve nutrient delivery to tissue, To increase oxygenation perfusion, To improve muscle performance and motor function, To improve gait and locomotor functions, To improve health of tissue, To decrease soft tissue restriction, To increase flexibility/ROM IF ES: Yes Cryotherapy (ice pack, ice massage): Yes For the Purpose of:: To decrease pain, To decrease swelling/inflammation, To increase ROM, To improve nutrient delivery to tissue Thank you for the opportunity to evaluate your patient. For Medicare and Medicare HMO plans, please review the plan of care and approve it. It will need to be FAXED BACK to us at [phone] for Medicare purposes. For Medicare only, by signing this I certify the plan of care. Please let me know if there are questions or concerns regarding this plan of care. Physician Signature: Date:
--- NOTE | 2019-12-25 08:38 | HP.PT.NRP ---
KEYONA GARCIA was seen in my office for initial evaluation on 06/05/19. The following Plan of Care was established for this patient: Initial Frequency: 2-3x /Week Initial Duration: 4-6 Weeks Patient/Client Instruction: Educate patient on: Condition, Plan of Care, Risk Factors, Benefits of Fitness Program For the Purpose of:: To facilitate caregiver knowledge, To improve self management, To prevent re-injury, To improve ability to perform tasks related to life management Therapeutic Exercise to Include: Strength training, Power training, Endurance training, Balance training, Postural training, Flexibilty training, Gait and locomotor training, Passive ROM, Active ROM, Dynamic Lumbar Stabilization For the Purpose of:: To decrease pain, To decrease swelling/inflammation, To increase ROM, To improve nutrient delivery to tissue, To increase oxygenation perfusion, To improve muscle performance and motor function, To improve gait and locomotor functions, To improve health of tissue, To decrease soft tissue restriction, To increase flexibility/ROM IF ES: Yes Cryotherapy (ice pack, ice massage): Yes For the Purpose of:: To decrease pain, To decrease swelling/inflammation, To increase ROM, To improve nutrient delivery to tissue This patient was last seen in our office 06/27/19. Pertinent comments regarding their Physical therapy will appear below: Pt. has not been seen in several months and will be DC from PT at this point intime. At this point I will be discontinuing this patient from physical therapy. I would be happy to see this patient again in the future if found appropriate by the physician. Thank you! Osorio Perez DPT
== END 2019-06-29 19:00 | disposition home or self-care (01) ==
LOC: PT 15:00
PROVIDERS: Family Provider Internal Medicine; PCP Internal Medicine; Referring Provider Orthopaedic Surgery; Visit Provider Orthopaedic Surgery
DX: Z98.890 Other specified postprocedural states (principal)
CPT/HCPCS: 97161

== ENCOUNTER → 2019-08-07 17:07 | Outpatient (CLI) | payer MEDICARE, OTHER, SELFPAY ==
[2019-07-04 15:11] VITALS: BMI 27.8
--- NOTE | 2019-08-07 17:15 | RAD_ITS ---
STUDY: X-RAY - LEFT KNEE REASON FOR EXAM: Female, 73 years old. Chronic left knee pain. TECHNIQUE: 2 view(s) of the knee. COMPARISON: None. FINDINGS: Normal visualized distal femur. Normal visualized proximal tibia and fibula. Normal proximal tibiofibular articulation. Normal medial femorotibial compartment. Normal lateral femorotibial compartment. Normal patellofemoral articulation. The soft tissue structures are unremarkable. RAD/Knee 1 or 2 Views IMPRESSION: Normal x-ray examination of the knee. Electronically Signed: Rogelio Addison MD at 16:20 EST , Service support ,
--- NOTE | 2019-08-07 17:15 | RAD_ITS ---
STUDY: X-RAY - LEFT SHOULDER REASON FOR EXAM: Female, 73 years old. Chronic left shoulder pain. TECHNIQUE: 4 view(s) of the shoulder. COMPARISON: None. FINDINGS: Normal glenohumeral articulation. Normal acromioclavicular joint. Normal acromion. Normal humeral head and visualized proximal humerus. There is a small soft tissue calcification superior to the humeral head. There is bilateral apical pleural calcification. RAD/Shoulder min 2 Views IMPRESSION: The osseous structures appear normal. There is a small soft tissue calcification superior to the humeral head consistent with calcific tendinitis/bursitis. There is bilateral apical pleural calcification. Electronically Signed: Rogelio Addison MD at 16:32 EST , Service support ,
--- NOTE | 2019-08-07 17:15 | RAD_ITS ---
STUDY: X-RAY - PELVIS AND LEFT HIP REASON FOR EXAM: Female, 73 years old. Chronic left hip pain. TECHNIQUE: 3 views of the pelvis and hip. COMPARISON: Prior study of 11/08/2018 FINDINGS: There is a non-specific bowel gas pattern. Normal visualized soft tissue structures. Normal bilateral iliac wings, sacroiliac joints and visualized sacrum. Normal bilateral superior and inferior pubic rami. Normal pubic symphysis. Normal bilateral ischial tuberosities. Status post total right hip replacement changes are noted. There is no evidence of fracture, dislocation, or significant degenerative disease of the osseous structures of the left hip. RAD/HIP, UNI W/ Pelvis 2-3 Views IMPRESSION: Status post total right hip replacement changes noted. The bony pelvis and left hip appear within normal limits. Electronically Signed: Rogelio Addison MD at 16:21 EST , Service support ,
== END ==
PROVIDERS: Family Provider Internal Medicine; PCP Internal Medicine; Referring Provider Anesthesiology Pain Medicine; Visit Provider Anesthesiology Pain Medicine
DX: M25.512 Pain in left shoulder (principal); M25.552 Pain in left hip
CPT/HCPCS: 73030; 73502; 73560

== ENCOUNTER → 2020-11-06 17:17 | Outpatient (CLI) | payer MEDICARE, OTHER, SELFPAY ==
[2019-07-04 15:11] VITALS: BMI 27.8
--- NOTE | 2020-11-06 17:22 | RAD_ITS ---
STUDY: X-RAY - LUMBAR SPINE REASON FOR EXAM: Female, 75 years old. FALL TECHNIQUE: 3 view(s) of the lumbar spine were obtained. COMPARISON: None FINDINGS: Normal lumbar lordosis. There is no substantial scoliosis. 2 mm of anterolisthesis of L2 on L3. Normal vertebral bodies and endplates. Focal disc space narrowing at L2/L3. The soft tissue structures are unremarkable. RAD/Lumbar Spine 2 or 3 Views IMPRESSION: 1. No acute fracture. 2. Focal degenerative disc disease at L2/L3 with 2 mm of anterolisthesis of L2 on L3. MRI may be useful. Electronically Signed: Wale Nassar MD at 12:32 EDT Tel , Service support ,
--- NOTE | 2020-11-06 17:22 | RAD_ITS ---
STUDY: X-RAY - PELVIS REASON FOR EXAM: Female, 75 years old. FALL TECHNIQUE: One view of the pelvis was obtained. COMPARISON: 08/07/2019 FINDINGS: There is a non-specific bowel gas pattern. Normal visualized soft tissue structures. Normal bilateral iliac wings, sacroiliac joints and visualized sacrum. Normal visualized bilateral superior and inferior pubic rami. Normal pubic symphysis. Normal ischial tuberosities. Status post right hip arthroplasty. The prosthesis appears located. No ostial lysis to suggest loosening.. Normal visualized left femoral head. Normal left acetabulum. There is mild articular joint space narrowing of the left hip. RAD/Pelvis 1 or 2 Views IMPRESSION: 1. No acute fracture or dislocation. 2. Status post right hip arthroplasty. 3. Mild left hip arthrosis. Electronically Signed: Wale Nassar MD at 8:41 EDT Tel , Service support ,
== END ==
PROVIDERS: PCP Internal Medicine; Visit Provider Anesthesiology Pain Medicine
DX: M51.36 Other intervertebral disc degeneration, lumbar region (principal)
CPT/HCPCS: 72100; 72170

== ENCOUNTER → 2021-02-07 13:07 | Outpatient (CLI) | payer MEDICARE, OTHER, SELFPAY ==
[2019-07-04 15:11] VITALS: BMI 27.8
--- NOTE | 2021-02-07 13:45 | MRI_ITS ---
HISTORY: LBP. TECHNIQUE: Multiplanar and multisequence MR images of the lumbar spine. IV Contrast dosage and agent: None. # of images incl. paperwork: 120. COMPARISON: XR 11/06/2020. FINDINGS: VERTEBRAE: Vertebral body heights maintained. Degenerative bone marrow endplate changes at L2-3 and L4-5. ALIGNMENT: Unchanged 3 mm anterolisthesis of L2-3 and L3-4. CONUS: Normal morphology and position at T12. SOFT TISSUES: No paraspinal fluid collections. INTERVERTEBRAL DISCS: T12-L1: Mild disc bulge without significant central canal stenosis or foraminal narrowing. L1-2: No significant posterior disc herniation, central canal stenosis, or foraminal narrowing. L2-3:Moderate disc protrusion with a right paracentral component, facet arthropathy, mild listhesis, and a developmentally narrow spinal canal resulting in severe central canal stenosis and mild left foraminal narrowing L3-4: Mild disc protrusion with facet arthropathy superimposed on mild listhesis and a developmentally narrow spinal canal resulting in severe central canal stenosis and mild bilateral foraminal narrowing. L4-5: Large disc bulge with a right paracentral component resulting in probable impingement of the right L5 nerve root with facet arthropathy superimposed on a developmentally narrow spinal canal resulting in markedly severe spinal canal stenosis. Mild bilateral foraminal narrowing. L5-S1: Mild posterior disc protrusion with bilateral facet arthritis resulting in very mild central canal stenosis and bilateral foraminal narrowing. MRI/Spine Lumbar (Routine) IMPRESSION: Multilevel degenerative disc disease with severe spinal canal stenosis as described above. at 1005 Reported and signed by: Ellen Ace MD Electronically Signed: Ellen Ace MD at 10:02 EDT Tel , Service support ,
== END ==
PROVIDERS: PCP Internal Medicine; Referring Provider Anesthesiology Pain Medicine; Visit Provider Anesthesiology Pain Medicine
DX: M54.9 Dorsalgia, unspecified (principal); M79.606 Pain in leg, unspecified
CPT/HCPCS: 72148

== ENCOUNTER 2021-04-22 11:34 | Inpatient (IN) | payer MEDICARE, OTHER, SELFPAY ==
--- NOTE | 2021-04-10 12:19 | EKG12_ITS ---
Test Reason : PRE OP Blood Pressure : / mmHG Vent. Rate : 058 BPM Atrial Rate : 058 BPM P-R Int : 164 ms QRS Dur : 074 ms QT Int : 410 ms P-R-T Axes : 046 061 075 degrees QTc Int : 402 ms Sinus bradycardia with sinus arrhythmia Low voltage QRS Nonspecific T wave abnormality Abnormal ECG Confirmed by MANNY WHITLOCK, CORY ([id number]), editor newspaper IZABELA CHURCH ([id number]) on 04/11/2021 7:04:51 AM Referred By: Edgar Nassar Confirmed By:CORY BRYANT MD
[2021-04-10 14:36] LABS: Absolute Lymphocyte Count 1.13 X10^3/uL (0.83-4.51); Absolute Neutrophil Count 4.2 X10^3/uL (2.0-7.7); Basophil# 0.06 X10^3/uL; Eosinophil# 0.23 X10^3/uL; Eosinophils% 3.7 % (0-5); Hemoglobin 12.9 g/dL (12.0-15.0); Lymphocyte # 1.13 X10^3/ul (0.83-4.51); Lymphocyte % 18.2 % (19-41); Mean Corp Hgb Conc 33.1 g/dL (32-36); Mean Corpuscular Hgb 31.3 pg (27.0-32.0); Mean Corpuscular Volume 94.7 fL (81-99); Mean Platelet Vol. 11.5 fl (6.2-12.0); Monocyte% 9.7 % (0-10); NRBC Flagged by Analyzer 0 % (0-5); Neutrophil # 4.16 X10^3/uL (2.7-7.7); Neutrophil % 67.1 % (47-70); Platelet Count 221 K/mm3 (150-450); RBC Distribution Width CV 13.9 % (11.6-14.6); RBC Distribution Width SD 48.3 fl (35.1-43.9); Red Blood Count 4.12 M/mm3 (4.2-5.4); White Blood Count 6.2 K/mm3 (4.4-11.0)
[2021-04-10 15:07] LABS: Anion Gap 6 (5-15); BUN 27 mg/dL (7-18); BUN/Creat Ratio 23.9 RATIO (10-20); Chloride 102 mmol/L (98-107); Creatinine, Serum 1.13 mg/dL (0.55-1.02); EST Glomerular Filtration Rate 50 mL/min (>60); Est Glom Filt Rate - Afr Amer 60 mL/min (>60); Glucose 72 mg/dL (74-106); Potassium 4.1 mmol/L (3.5-5.1); Sodium Level 136 mmol/L (136-145)
[2021-04-10 15:39] LABS: Magnesium 2.4 mg/dL (1.6-2.6)
[2021-04-10 15:50] LABS: HIV - WCH Non-Reactive (Nonreactive); Hepatitis B Surface Antibody Non-Reactive; Hepatitis C Antibody Non-Reactive (Nonreactive)
[2021-04-12 09:20] LABS: Hepatitis A AB, Total Negative (Negative)
--- NOTE | 2021-04-21 14:20 | PCM.HP.BLA ---
History and Physical Date of Admission: 04/22/21 [facility] [id number] [phone] OFFICE VISITDate of Service: 03/05/21 MR#:[id number]: KEYONA GARCIA ANNRep #:[id number] Provider:Dr. Edgar Nassar DOAge/Sex: 75/F Location:Karine:Signed Intake Vital Signs 03/05/21 13:56 BMI 27.8 Intake Visit Reasons: LUMBAR SPINE Chief Complaint: right hip. Accompanied by: Self Is patient in pain?: Yes (left hip/lower back) Allergies citalopram Adverse Reaction (Verified 07/04/19 15:11) Other fluoxetine Adverse Reaction (Verified 07/04/19 15:11) Other sertraline Adverse Reaction (Verified 07/04/19 15:11) ANXIETY venlafaxine HCl [From Effexor] Adverse Reaction (Verified 07/04/19 15:11) Other [facility] Medical History (Updated 03/05/21 @ 14:[address] Edgar Nassar DO) Abnormal EKG Anxiety Chronic kidney disease, stage 3 (moderate) Neuropathy Neuropathy Polyarthritis Preop cardiovascular exam Spinal stenosis Vitamin D deficiency Surgical History History of bilateral cataract extraction History of tonsillectomy History of total hip replacement History of total right knee replacement Family History Father Heart disease Social History Smoking Status: Never smoker alcohol intake: never substance use type: does not use caffeine: Yes Type: carbonated beverages Number of servings: 1 and tea Number of servings: 1 HPI LUMBAR SPINE Details: Parts of this documentation were recorded by a scribe, this documentation accurately reflects the service provided and the decisions made by me, Dr. Edgar Nassar DO 03/05/21 [id number]. KEYONA GARCIA is a 75 year old F here today to establish as a new patient. Pain is located with her lumbar, primarily with her left side. Denies any accident or injury, denies previous back surgery. Patient states she cannot ascend and descend stairs, d/t feeling of her leg giving out on her. Patient has been going to Dr. Whitehead for ten years. Patient voiced the last few months the injections have not been helpful. Patient has been taking Tylenol arthritis for pain control, and meloxicam. Patient has been on meloxicam for several months, which she feels is no longer helping. Patient previously was taking Lyrica and Vicodin and it was not providing relief. Years ago, Patient used to see DR. Padilla for dry needling and acupuncture. Patient has tried the following conservative treatments for six weeks or greater: RICE, OTC NSAIDs, home exercises provided by a provider, corticosteroid injections and oral corticosteroids, narcotic and non-narcotic analgesic medication(s), physician primary care sports medicine/dry needling/acupuncture,, interventional pain procedures, pain management techniques, and spinal manipulation. Patient has a lumbar spine x-ray on: 11/06/20. Patient had a lumbar spine MRI: 02/07/21. Patient has found no relief and would like to further investigate their s/s. Keyona Sepulveda is a delightful young lady 75 years old who has a chief complaint of back pain that radiates into both legs with weakness of the left thigh. She has been seeing for 10 years or so. He has given her injections over time but have helped her tremendously. She used to get 4 5 and 6 months relief. However as time is gone on she is getting less and less relief for shorter and shorter period of time. Now the pain has gotten quite bad. She cannot walk very far at all because her legs get worse and worse that she does. If she sits down she then gets relief and the cycle repeats itself over and over again. She of course is describing classic neurogenic claudication. She denies any bowel or bladder dysfunction. She denies history of unexplained weight loss night fever sweats or chills. On examination she can stand on her toes and she can stand on her heels without difficulty. She has a lot more pain with extension than standing straight. She has very little pain at all with flexion. She has obvious atrophy of the left quadriceps as compared to the right. The left quadriceps is weak also. And that reflexes absent. She has no long tract signs. Clonus is absent Babinski's are downgoing. I reviewed her MRI scan of her lumbar spine. She has severe stenosis at L4-5 and not quite as severe stenosis at L3-4 and even less stenosis at L2-3. However it seems that they should all 3 be decompressed. We will schedule her for surgery in the not too distant future. I will see her again 1 week before her surgery. Coding Level of Care Code Off vis,new,level 3 Diagnoses Spinal stenosis of lumbar region with radiculopathy M48.061; M54.16 Time Spent (min) 35 Assessment and Plan Assessment and Plan (1) Spinal stenosis of lumbar region with radiculopathy
[2021-04-22] VITALS (12 sets, daily range): BP systolic 94–136; BP diastolic 34–91; PULSE 57–75; RESP 16–18; TEMP 35.7–36.9; O2SAT 98–100; BMI 26.8
[2021-04-22] MEDS: Lactated Ringers 1,000 ML 100 ML IV ×5 (06:00→17:03)
[2021-04-22 06:16] LABS: Bedside Glucose 100 mg/dL (70-110)
[2021-04-22] MEDS: Acetaminophen 500 MG Tablet 1000 MG PO ×2 (06:27→21:06)
[2021-04-22] MEDS: THROMBIN (RECOMBINANT) 20,000 UNIT VIAL 20000 UNIT TOPICAL ×2 (08:00→10:53)
[2021-04-22] MEDS: Cefazolin 2 GM in 0.9% Normal Saline 100 ML IV (08:07)
--- NOTE | 2021-04-22 09:00 | RAD_ITS ---
STUDY: X-RAY - LUMBAR SPINE REASON FOR EXAM: Female, 75 years old. DECOMPRESSION L2-L5 TECHNIQUE: 1 view(s) of the lumbar spine were obtained. COMPARISON: None FINDINGS: Single intraoperative image was obtained for localization. The localization instrument is seen along the posterior aspect of the L4-L5 disc space level. RAD/Spine 1 View Any Level IMPRESSION: Localization instrument is seen on the posterior aspect of the L4-L5 disc space. Electronically Signed: Marcello Mireles MD at 10:08 EDT , Service support ,
--- NOTE | 2021-04-22 11:48 | PCM.OPRPT ---
Report of Operation Date of Procedure: 04/22/21 Description of Surgical Findings:: Preoperative diagnosis: Severe spinal stenosis L4-5 L3-4 and L2-3 Postoperative diagnosis: The same Procedures: #1 complete laminectomy decompression L4-5 CPT code 17166 #2 complete laminectomy decompression L3-4 CPT code 28336/51 #3 complete laminectomy decompression L2-3 CPT code 26986/51 Surgeon: Dr. Nassar blood and plasma laboratory assistant: Pauline MEJIA Anesthesia: General endotracheal anesthesia administered by [facility] EBL: 100 cc Drains: Medium Hemovac Complications: None Procedure: Patient was taken to the OR where she was placed under general endotracheal anesthesia. Neuro monitoring placed the anterior leads on the patient and a Boo catheter was inserted. The patient was then placed in the prone position on the Chuck frame. The posterior neuro monitoring leads were then put in place. Care was taken to protect her bony prominences her breasts the brachial plexus bilaterally and the ulnar nerves of both elbows the facial features and cervical spine. The back was then prepped and draped in standard fashion. I then made a longitudinal incision centered over L2-3 L3-4 and L4-5. Subcutaneous tissues were incised the length of the skin incision. I then began elevating the paravertebral muscles off the lamina of L4 on the left side. An intraoperative x-ray was taken that confirmed that we were indeed at the L4-5 level. I then continued elevated paravertebral muscles using cautery off the lamina of L3 and the lamina of L2. All the way out over the facets. I then moved to the opposite side of the table where I did the same thing. Again I elevated the paravertebral muscles on the right side from the lamina 4 3 and 2. Once this was done I put the super slide in place thorough irrigation was carried out every 10 to 15 minutes in the course of the case to prevent infection. As this was done I used double-action rongeurs to remove the spinous processes of L4, L3, and L2. I also used a Leksell rongeurs to thin down the lamina. I then used a bone scalpel to cut the lamina at all 3 levels on both sides. This loosened up the lamina and I was able to start removing them one at a time but first had to of course release ligamentum flavum at each level. I then split the ligamentum flavum down the middle first at 4 5. Then began removal of the ligamentum flavum with 45 degree Kerrison rongeurs. Note that the bottom lamina of [address] forming an isthmus. The removed all the ligamentum flavum along with bone into the lateral recesses bilaterally. This completely decompressed L4 on the right side and partially on the left. I did the exact same thing of the level above splitting the ligamentum flavum and removing it with 45 degree Kerrison rongeurs and opening the lateral recesses with a 45 degree Kerrison rongeurs removing all the ligamentum flavum. The isthmus at the top of L3 was left. This completely decompressed the right side and partially the left side. I then moved up to the last level L2-3. Again I used 45 degree Kerrison rongeurs to remove the ligamentum flavum on both sides and open the lateral recesses. On the right it was completely open and all partially open on the left. I then moved to the opposite side of the table. I then removed the remaining ligamentum flavum at all 3 levels with a 45 degree Kerrison rongeurs. This opened also included some of the lateral recess where bone was removed. Now all 3 levels were completely decompressed on both sides. Thorough irrigation was carried out again quite frequently. Bleeders were controlled with bipolar cautery and thrombin-soaked Gelfoam. We then placed amnionic membrane directly over all 3 laminectomies. Gelfoam was placed over the top of that. A medium Hemovac drain was inserted. I then closed the lumbar fascia using dyxehn-nc-qxsin suture with #1 Vicryl. The subcutaneous tissues were closed with 2-0 Vicryl in interrupted fashion. The skin was approximated using skin clips. Sterile dressings were then applied and the drain was taped in place. The patient was then moved to her hospital bed and taken to recovery in satisfactory condition. This is the end of operative summary on Makayla Newberry. This is Dr. Nassar dictating.
--- NOTE | 2021-04-22 14:04 | PCS.PANDOC ---
PANDEMIC DOCUMENTATION INITIATED: Date: 03/10/2021 Time: 190
--- NOTE | 2021-04-22 14:14 | PN.HOSP_ITS ---
Subjective Subjective Consult for postop medical management: 75-year-old female with past medical history of spinal stenosis, neuropathy, CKD stage III, who follows with pain management, Dr. Whitehead. She has had back injections that have not been helpful. She has tried conservative management with Lyrica, Vicodin, meloxicam which has not been helping. Patient underwent complete laminectomy with decompression of L4-L5, L3-4, L2-3 Patient was seen and examined. She complains of pain in her back. She also complains of feeling cold. She was seen in the immediate postop. Her vitals appear stable. Objective Data Objective Data Vital Signs: Vital Signs Temp Pulse Resp BP Pulse Ox 98.2 F 62 18 113/61 100 04/22/21 13:48 04/22/21 13:48 04/22/21 13:48 04/22/21 13:48 04/22/21 13:48 Oxygen Flow Rate (L/min) 6 Oxygen Delivery Method Room Air Weight: 66.6 kg Body Mass Index (BMI) 26.8 Intake & Output: Intake and Output for Last 24 Hours 04/20/21 04/21/21 04/22/21 23:59 23:59 23:59 Intake Total 2214 / 2214 Output Total 650 / 650 Balance 1564 / 1564 Lab / Micro Data Result Diagrams: 04/10/21 12:41 04/10/21 12:41 Labs: Laboratory Results - last 24 hr 04/22/21 05:52: POC Glucose 100 Micro: Microbiology 04/10/21 12:41 Swab (Method) Nasal Screen MRSA/MSSA - Final Radiography Diagnostic Testing: Radiology Impression Spine X-Ray 04/22/21 09:00 IMPRESSION: Localization instrument is seen on the posterior aspect of the L4-L5 disc space. Electronically Signed: Marcello Mireles MD at 10:08 EDT , Service support , Physical Exam Narrative Physical exam: General: Alert, oriented x3, cooperative, no apparent distress, well developed HEENT: Atraumatic Oral: Moist Mucosa Neck: Supple Lungs: Clear to auscultation Cardiovascular: HS I+II, regular, no murmurs Abdomen: Bowel Sounds Present, Soft, Non Tender Extremities: No edema Back: Dressing dry and intact, drain in situ with bloody discharge Assessment & Plan Assessment/Plan (1) Spinal stenosis of lumbar region with radiculopathy: (2) Preop cardiovascular exam: PLAN: 1. Postop day #0 status post multilevel laminectomy (L2-3, L3-4, L4- 5), patient's pain is fairly controlled Continue with scheduled Tylenol, oxycodone and morphine as needed Continue per neurosurgery recommendations 2. Abnormal EKG, previous EKG has show T wave inversions. Most recent EKG has no acute ST-T abnormality Last stress test was in 2019 was unremarkable 3. Hypertension, continue on metoprolol 4. Anxiety disorder, continue on BuSpar 5. DVT prophylaxis, SCDs per neurosurgery Charges/Coding Visit Charges Inpatient E&M: 83225 Init Hosp L3
[2021-04-22] MEDS: diazePAM 5 MG Tablet PO (15:41)
[2021-04-22] MEDS: Morphine 2 MG/ML Syringe IV (15:41)
[2021-04-22] MEDS: Cefazolin 1 GM/50 ML BAG IV (17:02)
[2021-04-22] MEDS: Ensure Surgery 237 ML LIQUID PO (17:05)
[2021-04-22] MEDS: oxyCODONE 5 MG Tablet PO ×2 (17:54→22:15)
[2021-04-22] MEDS: Famotidine 20 MG Tablet PO (21:07)
[2021-04-22] MEDS: Senna/Docusate Sodium 1 Tablet 2 TABLET PO (21:07)
[2021-04-22] MEDS: Zolpidem Tartrate 5 MG Tablet PO (22:15)
[2021-04-23] MEDS: Cefazolin 1 GM/50 ML BAG IV (00:37)
[2021-04-23 03:10] VITALS: BP 112/53; PULSE 67; RESP 18; TEMP 36.2; O2SAT 98
[2021-04-23] MEDS: oxyCODONE 5 MG Tablet PO ×4 (03:30→22:30)
[2021-04-23] MEDS: Acetaminophen 500 MG Tablet 1000 MG PO ×3 (03:30→22:21)
[2021-04-23 07:15] VITALS: O2SAT 96
[2021-04-23] MEDS: Senna/Docusate Sodium 1 Tablet 2 TABLET PO ×2 (08:38→22:21)
[2021-04-23] MEDS: Famotidine 20 MG Tablet PO ×2 (08:38→22:21)
[2021-04-23 08:41] VITALS: O2SAT 100
[2021-04-23] MEDS: Ensure Surgery 237 ML LIQUID PO ×3 (08:42→17:16)
[2021-04-23 08:48] VITALS: BP 99/43; PULSE 72; RESP 16; TEMP 35.8; O2SAT 99
[2021-04-23] MEDS: diazePAM 5 MG Tablet PO ×2 (11:39→22:29)
--- NOTE | 2021-04-23 12:51 | CASEMGMT ---
RN CM Assessment Introduced role of RN CM to patient. Patient is alert, oriented and able to participate in RN CM Assessment. Care providers, pharmacy, and demographics verified. Admit Dx: Lumbar decompression L4-5, L3-4, L2-3 Re-Admit: No Barriers/Issues: None. Patient dtr in law whom is a nurse is going to help care for her upon DC. Neighbor has been helping with groceries and driving recently. PCP: Gloria Morales Specialists: None Preferred Pharmacy: [facility] Insurance: [facility] A/B, Commercial Rx Benefit: Yes-Octavia LNOK: [facility] [place] [facility] LW/HPOA: LW on file at [facility]. 1. Jayant Marla, 2. Mateo Gutiérrez, 3. Natalya Newberry Living Arrangements: Lives alone in a Condo. No steps in front, 1 step to enter home other way. ADL?s: Independent with ambulation prior, past month has had to use rollator. Independent with ADLs. Transportation: Patient drives. Maria R has been driving recently. Friend Jeniffer will pickle processor at DC. DME: Rollator x2, walk in shower, SC, RTS, Grab bars, single prong cane. HHC: Past, states does not want HH. SNF: Past at [facility] Goal: Home and denies any needs or issues with going home. Dtr in law Chloe to assist. Aware RNCM will remain available should any needs arise. DC PLAN: Home and no anticipated needs identified at this time. JENIFER Wlils
[2021-04-23 14:13] VITALS: BP 95/44; PULSE 81; RESP 16; TEMP 35.6; O2SAT 98
--- NOTE | 2021-04-23 17:05 | PCM.PN.ORT ---
Objective Data Objective Data Vital Signs: Vital Signs Temp Pulse Resp BP Pulse Ox 96.0 F L 81 16 95/44 L 98 04/23/21 14:13 04/23/21 14:13 04/23/21 14:13 04/23/21 14:13 04/23/21 14:13 Oxygen Flow Rate (L/min) 6 Oxygen Delivery Method Room Air Weight: 146 lb 13.246 oz Body Mass Index (BMI) 26.8 Intake & Output: Intake and Output for Last 24 Hours 04/21/21 04/22/21 04/23/21 23:59 23:59 23:59 Intake Total 3955.67 / 3955.67 1350 / 1350 Output Total 1000 / 1000 100 / 100 Balance 2955.67 / 2955.67 1250 / 1250 Lab / Micro Data Result Diagrams: 04/10/21 12:41 04/10/21 12:41 Micro: Microbiology 04/10/21 12:41 Swab (Method) Nasal Screen MRSA/MSSA - Final Procedure Criteria Elective Risks - COVID COVID Risk Discussion: Post op day #1 is been up twice today she relates that her leg pain is virtually all gone. Her back hurts quite a bit as is expected her dressing is dry clean and early afternoon 60 cc out in her Hemovac. We will leave it in 1 more day. Neurologically she is intact. We will probably be able to remove her Hemovac drain which she may even go home tomorrow. Progress is satisfactory.
[2021-04-23] MEDS: Morphine 2 MG/ML Syringe IV (17:12)
[2021-04-23] MEDS: Zolpidem Tartrate 5 MG Tablet PO (22:30)
[2021-04-23 22:38] VITALS: BP 126/64; PULSE 67; RESP 16; TEMP 36.4; O2SAT 96
[2021-04-24] MEDS: diazePAM 5 MG Tablet PO (03:54)
[2021-04-24] MEDS: oxyCODONE 5 MG Tablet PO ×3 (03:54→15:22)
[2021-04-24 04:05] VITALS: BP 108/59; PULSE 82; RESP 16; TEMP 36.4; O2SAT 95
[2021-04-24] MEDS: Acetaminophen 500 MG Tablet 1000 MG PO ×2 (06:24→13:49)
[2021-04-24 08:15] VITALS: O2SAT 98
[2021-04-24 09:20] VITALS: BP 98/57; PULSE 93; RESP 18; TEMP 36.2; O2SAT 98
[2021-04-24] MEDS: Senna/Docusate Sodium 1 Tablet 2 TABLET PO (09:23)
[2021-04-24] MEDS: Ensure Surgery 237 ML LIQUID PO (09:23)
[2021-04-24] MEDS: Famotidine 20 MG Tablet PO (09:23)
--- NOTE | 2021-04-24 11:55 | PCM.DC.SUM ---
Providers Date of Admission: 04/22/21 Primary Care Physician: Dr. Gloria Morales MD Consultations 04/22/21 13:50 Consult: Hospitalist Routine Consulting Provider: Yessy Varner Reason for Consult: Medical Management EMERGENT Consult: No MD Notified: Yes Date Notified: 04/22/21 Time Notified: 14:03 Method of Notification: text via spok Reason For Visit: LUMBAR DECOMPRESSION L4-5, L3-4, L2-3 Diagnosis Discharge Diagnosis (1) Spinal stenosis of lumbar region with radiculopathy: Status: Acute Code(s): M48.061 - Spinal stenosis, lumbar region without neurogenic claudication; M54.16 - Radiculopathy, lumbar region (2) Preop cardiovascular exam: Status: Acute Code(s): Z01.810 - Encounter for preprocedural cardiovascular examination Medications at Discharge Home Medications Metamucil Fiber Singles 1 packet PO BID 11/06/14 buspirone 10 mg PO BID 11/06/14 metoprolol succinate 25 mg PO BID 11/06/14 multivitamin with folic acid 1 tab PO DAILY 11/06/14 ksuho-2v-abd-epa-fish oil-D3 1 ea PO DAILY 11/06/14 aspirin 81 mg PO DAILY 05/02/19 docusate sodium 100 mg PO BID 05/02/19 glucos sul 6CEf-dyo-zjeff-C-Mn 1 ea PO BID 05/02/19 magnesium oxide 400 mg (241.3 mg magnesium) tablet 400 mg PO DAILY 05/05/19 hydroxychloroquine 200 mg tablet 200 mg PO DAILY #1 tab 03/05/21 calcium 250 mg PO DAILY 04/08/21 clobetasol 1 applic TOPICAL BID 04/08/21 elderberry fruit 200 mg PO DAILY 04/08/21 turmeric 400 mg PO DAILY 04/08/21 vitamin E 100 unit PO DAILY 04/08/21 hydrocodone-acetaminophen See Rx Instructions .ROUTE .COMPLEX PRN 5 Days #40 tab 04/24/21 Hospital Course Operations - (complete laminectomy decompression of L2-3, L3-4, and L4-5 ) Summary of Care Provided Hospital Course: Patient was admitted to the hospital postoperatively on 04-22-2021 for a 3 level complete laminectomy decompression of levels L2-L3, L3-L4, and L4-L5. Surgery on above date was completed without complications and patient was moved to [facility] to for recovery. Patient has had no incidents or complications while on the floor. She has met physical therapy for a total of 3 times. She has been up walking each day stating that each day has been getting easier. She continues to have some pain at the surgical site, which patient admits is improving, at the same time she states that her radicular pain down the leg has resolved. She has remained neurovascularly intact throughout her stay. Patient has been drinking/eating regularly and has had normal urinary output. She has some minor hesitations with going home at the same time feels that she physically will be able to function safely if she is cautious/slow. At this time patient physically will be able to be discharged to home. Physical Exam Skin Skin Narrative: Overlying dressing initially is clean and dry without saturation. Incision of the lumbar spine shows great approximation with indwelling sergei. There is no surrounding erythema, warmth, discharge, or other signs of acute inflammation or infection. Minor tenderness on palpation around the incision. General Skin Exam: Negative for no breakdown, ecchymosis or erythema Lesions: no lesions Rashes: no rashes Neuro moves all extremities, no focal motor deficits and no sensory deficits noted Sensorium / Orientation: awake, alert, oriented to person, oriented to place and oriented to time Speech: speech normal Gait (Neuro): assistive device used walker Sensory Exam: extremities light-touch: normal Motor Exam: no tremor Weight / BMI Weight Weight: 146 lb 13.246 oz Body Mass Index (BMI) 26.8 ABG / Lab / Microbiology Data Result Diagrams: 04/10/21 12:41 04/10/21 12:41 Microbiology: Microbiology 04/10/21 12:41 Swab (Method) Nasal Screen MRSA/MSSA - Final D/C Instructions Discharge Diet: No restrictions Discharge Activity: May Not Drive, May Shower (On day 4) and Use Walker May resume sexual activity in: 4-6 weeks Weight Bearing Status: Weight bearing as tolerated Lifting Restricted to (Lbs): 5 Call your doctor if your incision/area has: Increased Redness and Foul Smelling Discharge Call your doctor if you observe: Fever of 101 or Higher, Inability to urinate, Shortness of breath, Chest pain and Calf discomfort Change Dressing in: 4 days Remove Dressing in: 4 days Cleanse incision/area with: Soap & Water and Keep Dressing Clean & Dry Drain: - (Drain was removed prior to discharge) Please Follow Up With: Edgar Nassar DO When: 2 weeks post-op Meaningful Use Info Meaningful Use Diagnoses (Choose all that apply): None applicable Discharge Plan Admission Admit Date/Time: 04/22/21 11:34 Attending Provider: Edgar Nassar Primary Care Provider: Gloria Morales Consulting Providers: Yessy Varner Discharge Orders/Prescriptions Prescriptions: New hydrocodone-acetaminophen 5-325 mg tablet See Rx Instructions .ROUTE .COMPLEX PRN (Reason: pain) 5 Days Qty: 40 RF: 0 Continued magnesium oxide 400 mg (241.3 mg magnesium) tablet 400 mg PO DAILY RF: 0 hydroxychloroquine [Plaquenil] 200 mg tablet 200 mg PO DAILY Qty: 1 RF: 0 metoprolol succinate 25 MG tablet 25 mg PO BID RF: 0 Metamucil Fiber Singles 1 PACKET packet 1 packet PO BID RF: 0 multivitamin with folic acid 1 TABLET tablet 1 tab PO DAILY RF: 0 lzbxe-8v-ome-epa-fish oil-D3 1 EACH capsule 1 ea PO DAILY RF: 0 buspirone 10 MG tablet 10 mg PO BID RF: 0 aspirin 81 MG tablet,delayed release (DR/EC) 81 mg PO DAILY RF: 0 glucos sul 5WGf-bzx-blroi-C-Mn 1 EACH capsule 1 ea PO BID RF: 0 docusate sodium 100 MG capsule 100 mg PO BID RF: 0 clobetasol 0.05 % cream 1 applic TOPICAL BID RF: 0 calcium 250 mg Tablet 250 mg PO DAILY RF: 0 vitamin E 100 unit Tablet 100 unit PO DAILY RF: 0 elderberry fruit 200 mg Capsule 200 mg PO DAILY RF: 0 turmeric 400 mg Capsule 400 mg PO DAILY RF: 0 Referrals / Follow Up: Gloria Morales MD [Primary Care Provider] - Disposition Discharge Orders: Discharge Patient (Routine); Ordered 04/24/21 Ordered By: Morris MEJIA
[2021-04-24 14:44] VITALS: BP 137/60; PULSE 66; RESP 14; TEMP 36.9; O2SAT 98
== END 2021-04-24 16:05 | disposition home or self-care (01) | DRG 517 ==
LOC: MS2 04-23 06:55 → SDC 04-23 07:44 → MS2 04-23 07:44
PROVIDERS: Anesthesiology; Admitting Provider Orthopaedic Surgery; PCP Internal Medicine; Referring Provider Orthopaedic Surgery; Visit Provider Orthopaedic Surgery
PROC: 01NB0ZZ Release Lumbar Nerve, Open Approach (ICD-10-PCS; CPT 63030; principal; 2021-04-22 07:00)
DX: M48.061 Spinal stenosis, lumbar region without neurogenic claudication (principal); M54.16 Radiculopathy, lumbar region; I12.9 Hypertensive chronic kidney disease with stage 1 through stage 4 chronic kidney disease, or unspecified chronic kidney disease; N18.30 Chronic kidney disease, stage 3 unspecified; G62.9 Polyneuropathy, unspecified; M13.0 Polyarthritis, unspecified; E55.9 Vitamin D deficiency, unspecified; F41.9 Anxiety disorder, unspecified; R94.31 Abnormal electrocardiogram [ECG] [EKG]; Z79.899 Other long term (current) drug therapy; Z79.82 Long term (current) use of aspirin
CPT/HCPCS: 36415; 72020; 80048; 82962; 83735; 85025; 86703; 86706; 86708; 86803; 87081; 93005; 97162; 97530; 97802; 99251; J7120; G0463; J2405

== ENCOUNTER 2021-04-29 01:24 | Emergency (ER) | payer MEDICARE, OTHER, SELFPAY ==
[2021-04-29 01:25] VITALS: BP 137/69; PULSE 70; RESP 18; TEMP 35.5; O2SAT 97; BMI 27.7
--- NOTE | 2021-04-29 01:34 | RAD_ITS ---
STUDY: X-RAY - ACUTE ABDOMINAL SERIES REASON FOR EXAM: Female, 75 years old. Distention, no flatus x6 hours, no bowel movement TECHNIQUE: Single view of the chest. Supine, and erect view(s) of the abdomen were obtained. COMPARISON: 02/26/2019. FINDINGS: Minimal right midlung atelectasis. Remainder of the lungs are clear and expanded. Normal size heart. Normal mediastinum and dheeraj. Normal visualized pulmonary arteries. Normal visualized aortic arch and descending thoracic aorta. There is moderate to abundant fecal debris within the colon. No bowel distention to suggest obstruction. The soft tissue structures of the abdomen and pelvis are unremarkable. Right-sided hip prosthesis in place. Degenerative disease of the left hip. RAD/Acute Abdomen Inc Chest IMPRESSION: Intimal right midlung atelectasis, otherwise no acute cardiopulmonary disease. Moderate abundant debris within the colon with no signs of bowel obstruction. Electronically Signed: Rama Triplett MD at 2:18 EDT , Service support ,
--- NOTE | 2021-04-29 01:35 | EDS_ITS ---
HPI HPI - GI History of Present Illness Chief Complaint: Constipation Detail of Chief Complaint: No bowel movement for 1.5 weeks Informant: patient Abdominal Pain/Flank Pain Onset: Weeks (1.5 weeks) Context: Gradual Onset Timing: Continuous Quality: Cramping Location: Diffuse Current Severity: Mild Maximum Severity: Moderate Worsened by: Nothing Relieved by: Nothing Nausea/Vomiting/Emesis GI Symptom: Positive for Nausea; Negative for Vomiting Diarrhea/Melena/Hematochezia GI Symptom: Negative for Diarrhea, Melena and Hematochezia Associated Symptoms Associated Symptoms: Negative for Dysuria, Frequency and Hematuria Narrative Narrative: Patient is an elderly woman who presents because she is not had a bowel movement since her spine surgery. She is on opiate algesic. She states she is taking Metamucil twice a day. She is taking a stool softener daily. She has not passed gas for the past 6 hours. She has no history of abdominal surgery. She has no history of partial small bowel obstruction. She does report nausea without vomiting. She does feel distended. She has no other complaints. Prior similar symptoms: No Recent Illness/Hospitalization: Yes [facility] Medical History Abnormal EKG Anxiety Arthritis Back pain Cardiology follow-up encounter Chronic kidney disease, stage 3 (moderate) History of echocardiogram History of stress test Hoarseness Leg cramps Neuropathy Neuropathy Non-smoker Polyarthritis Preop cardiovascular exam Redness of skin Spinal stenosis Vitamin D deficiency Walker as ambulation aid Wears glasses Home Medications Metamucil Fiber Singles 1 packet PO BID 11/06/14 [History Last Taken 04/21/21] buspirone 10 mg PO BID 11/06/14 [History Last Taken 04/21/21] metoprolol succinate 25 mg PO BID 11/06/14 [History Last Taken 04/22/21 05:00] multivitamin with folic acid 1 tab PO DAILY 11/06/14 [History Last Taken 04/21/21] xgqvw-0i-vvd-epa-fish oil-D3 1 ea PO DAILY 11/06/14 [History Last Taken 04/21/21] aspirin 81 mg PO DAILY 05/02/19 [History Last Taken 04/18/21] docusate sodium 100 mg PO BID 05/02/19 [History Last Taken 04/21/21] glucos sul 2EDl-jwe-[id number]-C-Mn 1 ea PO BID 05/02/19 [History Last Taken 04/21/21] magnesium oxide 400 mg (241.3 mg magnesium) tablet 400 mg PO DAILY 05/05/19 [History Last Taken 04/21/21] hydroxychloroquine 200 mg tablet 200 mg PO DAILY #1 tab 03/05/21 [Rx Last Taken 04/21/21] calcium 250 mg PO DAILY 04/08/21 [History Last Taken 04/21/21] clobetasol 1 applic TOPICAL BID 04/08/21 [History Last Taken 04/21/21] elderberry fruit 200 mg PO DAILY 04/08/21 [History Last Taken 04/21/21] turmeric 400 mg PO DAILY 04/08/21 [History Last Taken 04/21/21] vitamin E 100 unit PO DAILY 04/08/21 [History Last Taken 04/21/21] hydrocodone-acetaminophen See Rx Instructions .ROUTE .COMPLEX PRN 5 Days #40 tab 04/24/21 [Rx Last Taken Unknown] Allergy/AdvReac Type Severity Reaction Status Date / Time citalopram AdvReac ANXIETY Verified 04/29/21 01:25 fluoxetine AdvReac ANXIETY Verified 04/29/21 01:25 sertraline AdvReac ANXIETY Verified 04/29/21 01:25 venlafaxine HCl AdvReac ANXIETY Verified 04/29/21 01:25 [From Effexor] Family History Father Heart disease Surgical History History of back surgery History of bilateral cataract extraction History of cardiac catheterization History of tonsillectomy History of total hip replacement History of total right knee replacement Social History (Updated 04/29/21 @ 01:[address] Avery Hernandez MD) household members: none Smoking Status: Never smoker alcohol intake: never substance use type: does not use caffeine: Yes Type: carbonated beverages Number of servings: 1 and tea Number of servings: 1 ROS ROS ED Constitutional Constitutional ED: Denies chills, fever(s), subjective or sweats ENT ENT ED: Denies ear pain, rhinorrhea or sore throat Cardiovascular Cardiovascular: Denies chest pain, palpitations or racing heartbeat Respiratory/Chest Respiratory/Chest: Denies dyspnea or dyspnea on exertion Gastrointestinal Gastrointestinal: Reports abdominal pain, constipation and nausea; Denies diarrhea, melena or vomiting Genitourinary Genitourinary ED: Denies dysuria, hematuria or urinary frequency Musculoskeletal Musculoskeletal: Denies arthralgias or myalgias Integumentary Denies rash Neurologic Neurologic: Denies weakness Hematologic/Lymphatic Hematologic/Lymphatic: Denies easy bleeding or easy bruising EXAM Physical Exam Const Vital Signs: 04/29/21 01:25 Temperature 96 F L Temperature Source Temporal Pulse Rate 70 Respiratory Rate 18 Blood Pressure 137/69 H Blood Pressure Mean 91 Pulse Ox 97 Oxygen Delivery Method Room Air Positive well nourished and well developed General Appearance ED: well developed and NAD HEENT Reports moist mucous membranes normocephalic and atraumatic Eyes PERRL and EOMs intact bilaterally General Eye ED: Negative for pale conjunctiva or scleral icterus Neck no lymphadenopathy, supple and no JVD Resp normal respiratory effort and clear to auscultation bilaterally Cardio regular rate, regular rhythm, S1 normal heart sound, S2 normal heart sound and no murmurs GI non-tender and no masses; Negative for non-distended GI Narrative: Rectal exam reveals hemorrhoid. There is no active bleeding. There is no stool in the rectal vault. Inspection: abdominal distention and other Other Details: There is tympany to percussion. Auscultation: hypoactive bowel sounds; Negative for normoactive bowel sounds Palpation: soft Back/Spine no CVA tenderness Back/Spine Narrative: Well-healed incision with sergei in place and no evidence infection Cervical Spine: Negative for cervical spine tenderness Thoracic Spine / Upper Back: Negative for thoracic spinal tenderness Lumbar Spine / Lower Back: lumbar spinal tenderness Extremity full ROM General Extremety ED: Negative for edema or tenderness General Extremity: Negative for edema Neuro CN's II-XII intact bilaterally Sensorium / Orientation: alert and oriented to person Psych mental status grossly normal Skin no wounds Lesions: no lesions Rashes: no rashes MDM MDM MDM Narrative Medical decision making narrative: With no bowel movement for 1.5 weeks in spite of taking Metamucil twice a day stool softener twice a day and recent fleets enema will obtain x-ray to assess for adynamic ileus due to opiate analgesia and surgery versus partial small bowel obstruction. Patient received Zofran ODT for nausea. Patient has obstipation due to opiate analgesia and recent surgery. Plan is mag citrate and MiraLAX starting later this morning. This can be done at home. Radiography Diagnostic Testing: Three-view abdominal series was occluded chest portion reveals significant fecal stasis with an ossific gas pattern. Patient is status post total hip arthroplasty on the right. The cardiac silhouette size normal. Mediastinum is normal. Lung parenchyma is normal. Osseous structures of the chest are normal. There is no pneumoperitoneum noted. Discharge Plan Triage Chief Complaint: Constipation ED Provider: Avery Hernandez Dx/Rx/DC Orders Clinical Impression: Obstipation Prescriptions: No Action magnesium oxide 400 mg (241.3 mg magnesium) tablet 400 mg PO DAILY RF: 0 hydroxychloroquine [Plaquenil] 200 mg tablet 200 mg PO DAILY Qty: 1 RF: 0 metoprolol succinate 25 MG tablet 25 mg PO BID RF: 0 Metamucil Fiber Singles 1 PACKET packet 1 packet PO BID RF: 0 multivitamin with folic acid 1 TABLET tablet 1 tab PO DAILY RF: 0 mggrk-5k-iwe-epa-fish oil-D3 1 EACH capsule 1 ea PO DAILY RF: 0 buspirone 10 MG tablet 10 mg PO BID RF: 0 aspirin 81 MG tablet,delayed release (DR/EC) 81 mg PO DAILY RF: 0 glucos sul 9TIt-ylr-wbgxj-C-Mn 1 EACH capsule 1 ea PO BID RF: 0 docusate sodium 100 MG capsule 100 mg PO BID RF: 0 clobetasol 0.05 % cream 1 applic TOPICAL BID RF: 0 calcium 250 mg Tablet 250 mg PO DAILY RF: 0 vitamin E 100 unit Tablet 100 unit PO DAILY RF: 0 elderberry fruit 200 mg Capsule 200 mg PO DAILY RF: 0 turmeric 400 mg Capsule 400 mg PO DAILY RF: 0 hydrocodone-acetaminophen 5-325 mg tablet See Rx Instructions .ROUTE .COMPLEX PRN (Reason: pain) 5 Days Qty: 40 RF: 0 Primary Care Provider: Gloria Morales Referrals: Gloria Morales MD [Primary Care Provider] - 1-2 Days if not improving Activity Restrictions/Additional Instructions: Later this morning upon awakening drink 10 ounces of mag citrate 4 hours after drinking the mag citrate drink a glass of MiraLAX. Drink a glass of MiraLAX every hour until you start to have results. This may take 8 to 12 hours. Disposition Disposition: Home, Self Care
[2021-04-29] MEDS: Ondansetron ODT 4 MG Tablet PO (01:53)
[2021-04-29] MEDS: Magnesium Citrate 300 ML 150 ML PO (02:13)
== END 2021-04-29 02:14 | disposition home or self-care (01) ==
PROVIDERS: Emergency Provider Emergency Medicine; PCP Internal Medicine
DX: K59.00 Constipation, unspecified (principal)
CPT/HCPCS: 74022; 99283

== ENCOUNTER 2021-07-28 10:11 | Outpatient (RCR) | payer MEDICARE, SELFPAY ==
--- NOTE | 2021-07-28 12:51 | HP.PTEVAL ---
Patient's Visit Information KEYONA GARCIA is a 75 year old F referred to Physical Therapy by Dr. Domingo Stark DO with a diagnosis of LEFT HIP PAIN. Date of Evaluation: 07/28/21 Physical Therapist: Lidia Sheridan PT, Cert MDT - Visit Plan Frequency: 2-3x /Week Duration: 4-6 Weeks Plan: GAIT TRAINING, POSTURE CORRECTION/STRENGTHENING, INSTRUCTION IN APPROPRIATE BODY MECHANICS AND ACTIVITY MODIFICATIONS. DLS WITH A NEUTRAL SPINE TOLERATED. JUAN LE ROM, STRETCHING AND STRENGTHENING. HEP INSTRUCTION. START IN SITTING AND STANDING AND TRY TO WORK INTO LYING EX'S TOLERATED. - Subjective Work/Leisure: RETIRED. Disability: NO. Present symptoms: LEFT LOW BACK AND HIP PAIN. PAIN RADIATES DOWN TO L KNEE CAP AND L FOOT IS SWOLLEN. SOMETIMES THE ENTIRE LEFT LE ACHES ESPECIALLY WHEN TRIES TO LIE DOWN. Present since: AFTER BACK SURGERY 04/17/21. Pain Scale: WORST: 9/10, LEAST 2/10. Currently: PROGRESSIVELY GETTING WORSE. Commenced as a result of: NO APPARENT REASON OTHER THAN BACK SURGERY. Symptoms at onset: LEFT LOW BACK. Worse: WALKING, SITTING ON A HARD SURFACE AT KITCHEN TABLE, RISING FROM SITTING, TRYING TO INITIATE GAIT AFTER SITTING. LYING DOWN IN BED. SLEEPING SITTING UP IN CHAIR OR ON SOFA. ANY HOUSEWORK ON FEET - I AM GETTING TO THE POINT WHERE I JUST CAN'T DO IT. EVEN WASHING DISHES. Better: SITTING ON SOFA AND ARM CHAIR. SHE REPORTS THE TRAMADOL HELPS BUT DOESN'T GET RID OF THE PAIN. Disturbed sleep: YES. Previous history/Previous treatment: LUMBAR SURGERY 04/17/[address] ESPINAL AT [facility]. PATIENT DENIES ANY COMPLIATIONS FROM SURGERY THAT PATIENT IS AWARE OF BUT LEFT HIP STARTED WHILE STILL IN THE HOSPITAL. STATES SHE DIDN'T MENTION IT TO THE NURSE BECAUSE SHE THOUGHT IT WAS FROM THE SURGERY. PRIOR TO SURGERY SHE REPORTS SHE DID HAVE LEFT HIP AND LE SX'S BUT IT GOT WORSE AFTER THE SURGERY. SHE REPORTS A HISTORY OF HAVING PAIN MGMT WITH DR. WOOD AND RECEIVING INJECTIONS IN BOTH HER BACK AND HER HIP. THE SHOTS WERE NOT HELPING SO SHE REPORTS DR. WOOD SENT HER TO DR. ESPINAL. PATIENT DENIES HISTORY OF RIGHT LE SX'S. Treatment this episode: TRAMADOL AND TYLONOL. CONSULT WITH DR. STARK. INJECTION BY DR. WOOD IN SI JOINT BUT STATES IT DID NOT HELP AT ALL. PATIENT REPORTS DR. STARK IS HOPING THERAPY WILL SPARE HER OF NEEDING SURGERY ON HER HIP. STATES DR. STARK TOLD HER SHE MIGHT NEED A HIP REPLACEMENT. Coughing/sneezing/straining: NEGATIVE. Gait: PATIENT REPORTS SHE IS USING A CANE AT HOME AND A WALKER (ROLLATOR) OUTSIDE OF HER HOME. SHE REPORTS IT IS VERY PAINFUL TO WALK AND SOMETIMES IT HURTS SO BAD SHE CAN'T WALK. Difficulty initiating urination: NO. PATIENT REPORTS CONSTIPATION BUT DENIES BOWEL AND BLADDER DYSFUNCTION. Accidents: A YEAR AGO - FELL OFF COUCH AND BRUISED BACK. LANDED ON PUPPY STEPS. WAS STANDING ON COUCH DUSTING PICTURE AND LOST HRE BALANCE. Unexplained weight loss: NO. Imaging: RECENT LEFT HIP X-RAYS [facility]: STUDY: X-RAY - PELVIS AND LEFT HIP. REASON FOR EXAM: Female, 75 years old. pain. TECHNIQUE: 3 views of the pelvis and hip. COMPARISON: None. . FINDINGS: There is a non-specific bowel gas pattern. Normal visualized soft tissue. structures. There is narrowing with cortical sclerosis and osteophyte formation of the. sacroiliac joint consistent with degenerative osteoarthritic changes. Normal bilateral superior and inferior pubic rami. Normal pubic symphysis. Normal bilateral ischial tuberosities. There is a right-sided hip. prosthesis in place. There is increased sclerosis along the articular region of the femoral head. with small subchondral cysts. There is cortical sclerosis with. sub-cortical cyst formation of the acetabulum. There is moderate to severe. articular joint space narrowing of the hip. . RAD/HIP, UNI W/ Pelvis 2-3 Views. IMPRESSION: Moderate to severe degenerative disease of the left hip. No distinct. fracture or subluxation seen. . Electronically Signed: Rama Triplett MD. at 1:45 EST. STUDY: X-RAY - LUMBAR SPINE. REASON FOR EXAM: Female, 75 years old. pain. TECHNIQUE: 2 view(s) of the lumbar spine were obtained. COMPARISON: None. . FINDINGS: Normal lumbar lordosis. There is no substantial scoliosis. There is. minimal anterolisthesis of L2 on L3 (2.5 mm) and L3 on L4 (2 mm). There is. multilevel bilateral facet hypertrophy. The patient is status post. posterior laminectomy from L2 to L5. There is multilevel endplate spondylosis of the lumbar vertebrae. There is. multi-level degenerative disc disease with multi-level disc space. narrowing. There is no demonstrated fracture. There is atherosclerotic calcification of the abdominal aorta without a. demonstrated aneurysm. . RAD/Lumbar Spine 2 or 3 Views. IMPRESSION: Postoperative changes. Underlying degenerative disease with no acute. fracture or subluxation. . Electronically Signed: Rama Triplett MD. at 1:47 EST. PMH/Recent major surgery: R THR ABOUT 2 YREARS AGO. R TKR ABOUT 6 YEARS AGO. OSTEOARTHRITIS. ANXIETY. PLOF (Prior Level of Function): PATIENT REPORTS SHE WAS WALKING WITH A WALKER FOR A COUPLE OF MONTHS BEFORE BACK SURGERY AND REPORTS HER BACK PROBLEM GOT WORSE IN THE SUMMER OF 2020 AND THAT IS WHEN DR. WOOD SENT HER TO DR. ESPINAL. OTHER: PATIENT REPORTS SHE CALLED DR. STARK'S OFFICE ABOUT HER FOOT SWELLING SO THEY MOVED HER HAYDEE'T UP WITH DR. STARK AND SHE SAW HIM LAST WEDNESDAY PER PATIENT REPORT. - Objective Sitting/Standing Posture: POOR. Lordosis: REDUCED. LONG LUMBAR INCISION. Lateral shift: NO. Active Correction of posture: NE. Other Observations: THIS PATIENT STARTED TO AMBULATE BACK TO PT WITH HER ROLLATOR BUT HER GAIT WAS VERY ANTALGIC WITH DIFFICULTY WEIGHT BEARING ON L LE. SHE WAS BROUGHT THE REST OF THE WAY BACK TO PT IN A WHEELCHAIR AND SHE EXPRESSED HER APPRECIATION FOR THIS. PATIENT DEMO'D AT LEAST 20 FEET OF INDEP GAIT IN LOBBY AFTER PT SESSION WITH ROLLATOR AND LIMP ON LLE. LEFT PATIENT WITH FRIEND THAT TRANSPORTED HER. Motor deficit: RIGHT LE 5/5 WITH MMT'ING EXCEPT HIP 4/5. LEFT HIP 3/5, KNEE EXT 4/5, KNEE FLEX 4/5, ANKLE DORSIFLEXION 4/5. LEFT HIP TESTING IS PAIN LIMITED. Sensory deficit: JUAN LE LIGHT TOUCH SENSATION IS GROSSLY INTACT AND SYMMETRICAL. ROM deficit: ACTIVE LEFT HIP FLEXION TO 80 DEG WITH ERP. FULL LEFT KNEE ACTIVE EXT. LEFT KNEE FLEXION TO AT LEAST 90 DEG. Reflexes: NT. Lumbar mvmt loss: (PATIENT DENIES HAVING ANY PHYSICIAN RESTRICTIONS). flex - MIN. ext - LORENA. R SG - LORENA. L SG - LORENA. PATIENT DENIED INCRASED PAIN WITH LUMBAR ROM TESTING. Core strength: POOR. Palpation: NO ACUTE TENDERNESS WITH PALPATION LOWER THORACIC SPINE, LUMBAR SPINE, JUAN LOW BACK MUSCULARUTER, JUAN SI JOINT AREAS AND JUAN HIPS BUT PATIENT REPORTS THE PAIN FEELS LIKE IT IS DEEP INSIDE HER LEFT HIP AREA. SHE IS ALSO NOT TENDER IN THE LEFT THIGH OR KNEE. OTHER: NEGATIVE L LE HOMANS TEST. PATIENT LIVES ALONE IN A RANCH HOME WITH STEPS TO BASEMENT. EXAM LIMITED TO STANDING AND SITTING DUE TO PATIENT NOT BEING ABLE TO LAY DOWN. - Balance/Special Test Scores Lower Extremity Functional Score: 9 - Goals Goal 1:: DECREASE C/O LEFT LOW BACK AND LE SX'S. Goal Time Frame: 4-6 Weeks Goal 2:: PATIENT WILL BE INDEP AND SAFE WITH GAIT WITH LEAST ASSISTIVE DEVICE AND DEVIATIONS ON LEVEL SURFACES AND UP AND DOWN STEPS. Goal Time Frame: 4-6 Weeks Goal 3:: INCREASE PAINFREE ROM OF LLE TO EASE ADL'S Goal Time Frame: 4-6 Weeks Goal 4:: IMPROVE PAINFREE LLE STRENGTH TO EASE ADL'S Goal Time Frame: 4-6 Weeks Goal 5:: PATIENT WILL BE INDEP WITH A HEP FOR CONTINUED IMPROVEMENT ONCE FORMAL PHYSICAL THERAPY CONCLUDES. Goal Time Frame: 4-6 Weeks - Anticipated Interventions Patient/Client Instruction: Educate patient on: Condition, Plan of Care, Risk Factors For the Purpose of:: To improve self management Therapeutic Exercise to Include: Strength training, Body mechanics, Postural training, Flexibilty training, Gait and locomotor training, Neuromotor development, In an aquatic setting, Dynamic Lumbar Stabilization Comment: CONSIDER AQUATIC THRAPY. THIS WAS DISCUSSED WITH PATIENT. For the Purpose of:: To decrease pain, To increase ROM, To improve muscle performance and motor function, To increase tolerance to activity/condition/position, To improve ability of physical actions for home/community/work/leisure, To improve gait and locomotor functions Ultrasound (thermal/non thermal): Yes - CHECK FOR INS APPROVAL For the Purpose of:: To decrease pain, To improve nutrient delivery to tissue Thank you for the opportunity to evaluate your patient. For Medicare and Medicare HMO plans, please review the plan of care and approve it. It will need to be FAXED BACK to us at [phone] for Medicare purposes. For Medicare only, by signing this I certify the plan of care. Please let me know if there are questions or concerns regarding this plan of care. Physician Signature: Date:
--- NOTE | 2021-09-02 13:03 | HP.PT.NRP ---
KEYONA GARCIA was seen in my office for initial evaluation on 07/28/21. The following Plan of Care was established for this patient: Initial Frequency: 2-3x /Week Initial Duration: 4-6 Weeks Patient/Client Instruction: Educate patient on: Condition, Plan of Care, Risk Factors For the Purpose of:: To improve self management Therapeutic Exercise to Include: Strength training, Body mechanics, Postural training, Flexibilty training, Gait and locomotor training, Neuromotor development, In an aquatic setting, Dynamic Lumbar Stabilization For the Purpose of:: To decrease pain, To increase ROM, To improve muscle performance and motor function, To increase tolerance to activity/condition/position, To improve ability of physical actions for home/community/work/leisure, To improve gait and locomotor functions Ultrasound (thermal/non thermal): Yes - CHECK FOR INS APPROVAL For the Purpose of:: To decrease pain, To improve nutrient delivery to tissue This patient was last seen in our office . Pertinent comments regarding their Physical therapy will appear below: PATIENT ATTENDED EVAL ONLY. SHE HAS APPARENTLY UNDERGONE SURGERY AND MAY RETURN FOR FURTHER THERAPY POST SURGERY. At this point I will be discontinuing this patient from physical therapy. I would be happy to see this patient again in the future if found appropriate by the physician. Thank you! Lidia Sheirdan, PT, Cert MDT Balance/Gait/Functional tests - Balance/Special Test Scores Lower Extremity Functional Score: 9
== END 2021-07-28 19:00 | disposition home or self-care (01) ==
LOC: PT 10:11
PROVIDERS: PCP Internal Medicine; Referring Provider Orthopaedic Surgery; Visit Provider Orthopaedic Surgery
DX: M16.12 Unilateral primary osteoarthritis, left hip (principal)
CPT/HCPCS: 97162

== ENCOUNTER 2021-09-17 13:26 | Outpatient (CLI) | payer MEDICARE, SELFPAY ==
--- NOTE | 2021-09-17 13:34 | CT_ITS ---
STUDY: CT SCAN LOWER EXTREMITY LEFT REASON FOR EXAM: Female, 75 years old. Templating for left SARAH RADIATION DOSAGE (If Supplied By Facility): CTDIvol = ( 12.45 ) mGy, DLP = ( 735.99 ) mGycm. Individualized dose optimization techniques were used for this CT.? TECHNIQUE: Multiple axial tomographic images of the hip joints and knee joints were obtained. Coronal and sagittal imaging was obtained as well. COMPARISON: None. FINDINGS: The patient is status post right total hip replacement. There is a marked degree of joint space narrowing of the left hip joint with subchondral geodes. Avascular necrosis should be ruled out. Imaging of the knee joints was obtained. The patient is status post right total knee replacement. There is mild degree of joint space narrowing involving the patellofemoral joint. CT/Extremity Lower without Contra IMPRESSION: Marked degree of joint space narrowing and osteoarthritis with subchondral geodes of the left hip joint. Findings also suggestive of avascular necrosis. Electronically Signed: Marcello Mireles MD at 15:21 EST ,
== END 2021-09-17 23:59 | disposition home or self-care (01) ==
LOC: CT 13:29
PROVIDERS: PCP Internal Medicine; Referring Provider Orthopaedic Surgery; Visit Provider Orthopaedic Surgery
DX: M16.12 Unilateral primary osteoarthritis, left hip (principal)
CPT/HCPCS: 73700

== ENCOUNTER 2021-09-30 08:50 | Inpatient (IN) | payer MEDICARE, SELFPAY ==
--- NOTE | 2021-09-17 13:35 | EKG12_ITS ---
Test Reason : PREOP Blood Pressure : / mmHG Vent. Rate : 060 BPM Atrial Rate : 060 BPM P-R Int : 150 ms QRS Dur : 076 ms QT Int : 412 ms P-R-T Axes : 055 052 051 degrees QTc Int : 412 ms Normal sinus rhythm Nonspecific ST and T wave abnormality Abnormal ECG Confirmed by MANNY WHITLOCK, CORY ([id number]), web editor IZABELA CHURCH ([id number]) on 09/18/2021 8:23:48 AM Referred By: Domingo Stark Confirmed By:CORY BRYANT MD
[2021-09-17 15:44] LABS: Absolute Lymphocyte Count 1.16 X10^3/uL (0.83-4.51); Absolute Neutrophil Count 4.5 X10^3/uL (2.0-7.7); Basophil# 0.03 X10^3/uL; Basophil% 0.5 % (0-1); Eosinophils% 1.6 % (0-5); Hematocrit 38.2 % (37-47); Lymphocyte # 1.16 X10^3/ul (0.83-4.51); Lymphocyte % 18.2 % (19-41); Mean Corpuscular Hgb 31.6 pg (27.0-32.0); Mean Corpuscular Volume 92.7 fL (81-99); Monocyte% 9.4 % (0-10); NRBC Flagged by Analyzer 0 % (0-5); Neutrophil # 4.46 X10^3/uL (2.7-7.7); Neutrophil % 69.8 % (47-70); Platelet Count 229 K/mm3 (150-450); RBC Distribution Width CV 13.7 % (11.6-14.6); RBC Distribution Width SD 47.1 fl (35.1-43.9); Red Blood Count 4.12 M/mm3 (4.2-5.4); White Blood Count 6.4 K/mm3 (4.4-11.0)
[2021-09-17 15:56] LABS: International Normalized Ratio 1.1; Prothrombin Time (Protime)PT. 13.2 SECONDS (11.7-14.9)
[2021-09-17 16:20] LABS: Anion Gap 6 (5-15); BUN 24 mg/dL (7-18); BUN/Creat Ratio 29.3 RATIO (10-20); Calcium,Total 9.2 mg/dL (8.5-10.1); Chloride 103 mmol/L (98-107); Creatinine, Serum 0.82 mg/dL (0.55-1.02); EST Glomerular Filtration Rate 72 mL/min (>60); Est Glom Filt Rate - Afr Amer 87 mL/min (>60); Glucose 90 mg/dL (74-106); Potassium 3.8 mmol/L (3.5-5.1); Sodium Level 137 mmol/L (136-145)
[2021-09-17 16:22] LABS: Magnesium 2.4 mg/dL (1.6-2.6)
[2021-09-19 09:06] LABS: Fructosamine 252 umol/L (0-285)
[2021-09-30] VITALS (32 sets, daily range): BP systolic 106–156; BP diastolic 46–95; PULSE 58–90; RESP 12–16; TEMP 35.8–37.3; O2SAT 94–100; BMI 26.9; BMI 27.8
--- NOTE | 2021-09-30 | HIP_PTH ---
PATIENT: KEYONA GARCIA LOC: [facility] U#:[id number] AGE/SX: 75/F ROOM: [facility] RE09/30/[address]: Dr. Domingo Stark DO : 1945 BED: 1 DIS: 10/03/2021 SPEC #: [id number] RECD: 09/30/21 15:07 STATUS: ARTUR ALFRED #: [id number] MIGUEL: 09/30/21 00:[address]: Domingo Stark DEPT: SURGICAL PATHOLOGY RECD BY: Tomasz Correia ENTERED: 10/01/21 10:15 SP TYPE: TOTAL HIP OTHR DR: Dr. Gloria Morales MD Tissues: Hip, NOS Procedures: Decalcification bone/plaque Surgery Specimen Level IV HEADER OPERATION: ERAS, total hip replacement robotic arm assist PRE-OP DIAGNOSIS: Degenerative joint disease of left hip TISSUE SUBMITTED: Bone and soft tissue left hip MICROSCOPIC DIAGNOSIS Bone and tissue of left hip, total hip resection: Severe degenerative joint disease. Synovial hyperplasia. AM:dino 10/06/2021 MICROSCOPIC DESCRIPTION Slides are reviewed. GROSS DESCRIPTION Received is one container labeled with the patient's name and designated bone and tissue left hip. The specimen consists of a pena femoral head with portion of femoral neck. The femoral head measures 4 x 4.5 x 4 cm and the femoral neck measures 1.5 cm in length. The articular surface displays prominent osteophyte formation, eburnation and bone erosion. Also present in the specimen container are multiple irregular fragments of bone reamings and pink-yellow soft tissue measuring in aggregate 6 x 6 x 2 cm. [employer] sections are submitted in two cassettes as follows: 1 - soft tissue, 2 ? femoral head after decalcification. / SJ:dino 10/01/2021 TC:5 CPT: 53099, 95701
[2021-09-30] MEDS: Acetaminophen 500 MG Tablet 1000 MG PO (09:39)
[2021-09-30] MEDS: Lactated Ringers 1,000 ML 999 ML IV (09:39)
[2021-09-30] MEDS: Scopolamine 1mg/72hr Patch 1 PATCH TD (09:39)
[2021-09-30] MEDS: Gabapentin 600 MG Tablet PO (09:40)
[2021-09-30 10:01] LABS: Bedside Glucose 106 mg/dL (74-106)
[2021-09-30] MEDS: Cefazolin 2 GM in 0.9% Normal Saline 100 ML IV (11:06)
[2021-09-30] MEDS: TXA 1000mg in NS100 100ml (IVPB at Incision) 660 MG IV (11:16)
[2021-09-30] MEDS: dexAMETHasone 10 MG/ML Vial IV (11:16)
[2021-09-30] MEDS: Lactated Ringers 1,000 ML 125 ML IV ×2 (12:00→16:22)
--- NOTE | 2021-09-30 13:21 | OP.PCM_ITS ---
Report of Operation Date of Procedure: 09/30/21 Description of Surgical Findings:: Preoperative diagnosis: Left hip DJD Postoperative diagnosis: Same Procedure: CT-guided Makoplasty assisted left total hip arthroplasty Implants: Jessica Accolade II stem size 4, 127 degree neck angle -2.5 neck length 52 mm Trident II acetabular shell with 35 mm cancellous screw 36 mm ceramic head Anesthesia: Spinal EBL: 175 cc Complications: None Condition: Stable to PACU Indication for procedure: This is a 75 year old female who has had long- standing arthrosis of the hip who has failed conservative treatment and wished to undergo total hip arthroplasty. We did discuss operative versus nonoperative intervention including risks of bleeding, infection , nerve artery tissue damage, need for further surgery, fracture, leg length discrepancy dislocation blood clot and need for postoperative physical therapy and postoperative expectations. An informed consent was signed. Procedure: Patient was met in the preoperative holding area once again the operative extremity was identified by both patient and physician and was marked. Patient was met by anesthesia . Anesthesia was started. patient was then positioned in the lateral decubitus position on a well-padded pegboard with an axillary roll. All bony prominences were checked and padded. The patient was prepped and draped in the usual sterile fashion. A timeout was called to ensure the proper patient procedure and extremity were being contemplated. Anatomic landmarks were palpated and marked for a standard posterior lateral approach. Prior to this the ASIS was palpated and 3 fingerbreadths proximal to this 3 pins were placed at a 45 degree angle into the iliac crest with good purchase, stab incisions were made with a 15 blade into the skin prior to placement. The Makoplasty array was then secured. A 10 blade scalpel was used to make a post erior incision through the skin and subcutaneous tissue. retractors were used and electrocautery was used to maintain meticulous hemostasis and dissect full- thickness flaps until the gluteal fascia was reached. The gluteal fascia was incised in line with the gluteal fibers. The bursal tissue was then freed from the underside and a Charnley retractor was placed. The femoral trochanteric checkpoint was placed and leg length was assessed using the trochanteric checkpoint and an EKG lead that was placed on the knee prior to prepping the leg .the fat pad was then elevated off of the external rotators with electrocautery and the external rotators were dissected off of the greater trochanter including the piriformis and were tagged with #1 Ethibond for later repair. The joint capsule opened with posterior trapdoor technique. The hip was surgically dislocated. The measurement on the preoperative CT from the top of the lesser trochanter to the femoral neck cut was marked Hohmann was placed around the lesser trochanter. A neck cutting guide was used to agapito the neck with a Bovie and an oscillating saw was used complete the femoral neck cut. The femoral head was then removed and sized. We then turned our attention to the acetabulum. A Bovie was used to make a perforation in the anterior joint capsule and a Harris retractor was placed this was repeated in the 6 o'clock position and a wide som was placed there. With a long handled knife the labral and pulvinar tissue were removed. We then registered the acetabulum with the pointing array and confirmed our landmarks. Once the socket was thoroughly prepared and labral tissue and pulvinar was removed we single reamed with the robotic arm. We then used the robotic arm to position the acetabular implant and impacted it into place under robotic guidance. We then proceeded to place a posterior superior screw by drilling first measuring and inserting the screw. We then inserted a trial liner. And turned our attention back to the femur at this point a femoral elevator was used. As well as a pointed wide Hohmann around the lesser trochanter and a Hohmann to help retract the gluteus medius. A box chisel was used to remove excess lateral neck followed by a canal finder and a lateralizing reamer. This was followed by sequential broaches. Attention was made of the version within the canal based on preoperative templating. Once the final broach was seated we then trialed reduced the hip it was determined that a 127 degree neck angle with a -2.5 neck length was the appropriate size. We then checked stability with shuck testing as well as flexion and internal rotation. then proceeded with hip extension and checked leg lengths at the knees and heels as well as with the trochanteric checkpoint and knee EKG lead. At this point trials were removed. A liner was inserted to the cup. The femoral stem was inserted. We re-trialed and then proceeded to impact the femoral head onto the Germain taper. We then surgically reduce the hip check stability again and leg lengths and were satisfied. Betadine rinse was allowed to sit for 5 minutes while everyone changed their gloves. Thorough irrigation was performed. Followed by closure of the external rotators with #2 FiberWire followed by closure of gluteal fascia with #1 Ethibond. 0 Vicryl fat stitches and 2-0 Vicryl subcutaneous stitches and sergei in the skin. A pulls were placed in the pin sites over the iliac crest with Xeroform 4 x 4 and OpSite. dressing was applied to incisional area with Mepilex Ag and an abduction pillow was placed. Patient tolerated the procedure well there was no intraoperative complications all counts were correct and the patient was brought back to the PACU in stable condition
--- NOTE | 2021-09-30 13:21 | PCM.HP.BLA ---
History and Physical Date of Admission: 09/30/21 Date of Service: 09/01/21 MR#:[id number]: KEYONA GARCIA ANNRep #:[id number] Provider:Dr. Domingo Stark, DOAge/Sex: 75/F [facility]:Signed Intake Intake Visit Reasons: Lt hip Allergies citalopram Adverse Reaction (Verified 07/23/21 15:25) ANXIETY fluoxetine Adverse Reaction (Verified 07/23/21 15:25) ANXIETY sertraline Adverse Reaction (Verified 07/23/21 15:25) ANXIETY venlafaxine HCl [From Effexor] Adverse Reaction (Verified 07/23/21 15:25) ANXIETY Medications Metamucil Fiber Singles 1 packet PO BID 11/06/14 [History Confirmed 09/01/21] buspirone 10 mg PO BID 11/06/14 [History Confirmed 09/01/21] metoprolol succinate 25 mg PO BID 11/06/14 [History Confirmed 09/01/21] multivitamin with folic acid 1 tab PO DAILY 11/06/14 [History Confirmed 09/01/21] brwko-3s-bzm-epa-fish oil-D3 1 ea PO DAILY 11/06/14 [History Confirmed 09/01/21] aspirin 81 mg PO DAILY 05/02/19 [History Confirmed 09/01/21] docusate sodium 100 mg PO BID 05/02/19 [History Confirmed 09/01/21] glucos sul 5NCu-kiz-mxxyb-C-Mn 1 ea PO BID 05/02/19 [History Confirmed 09/01/21] magnesium oxide 400 mg (241.3 mg magnesium) tablet 400 mg PO DAILY 05/05/19 [History Confirmed 09/01/21] calcium 250 mg PO DAILY 04/08/21 [History Confirmed 09/01/21] clobetasol 1 applic TOPICAL BID 04/08/21 [History Confirmed 09/01/21] elderberry fruit 200 mg PO DAILY 04/08/21 [History Confirmed 09/01/21] turmeric 400 mg PO DAILY 04/08/21 [History Confirmed 09/01/21] vitamin E 100 unit PO DAILY 04/08/21 [History Confirmed 02/07/22] hydrocodone-acetaminophen 5-325mg 5mg-325mg 1 tab PO tab 09/01/21 [History Confirmed 09/01/21] [facility] Medical History Abnormal EKG Anxiety Arthritis Back pain Cardiology follow-up encounter Chronic kidney disease, stage 3 (moderate) History of echocardiogram History of stress test Hoarseness Leg cramps Neuropathy Neuropathy Non-smoker Polyarthritis Preop cardiovascular exam Redness of skin Spinal stenosis Vitamin D deficiency Walker as ambulation aid Wears glasses Surgical History History of back surgery History of bilateral cataract extraction History of cardiac catheterization History of tonsillectomy History of total hip replacement History of total right knee replacement Family History Father Heart disease Social History household members: none Smoking Status: Never smoker alcohol intake: never substance use type: does not use caffeine: Yes Type: carbonated beverages Number of servings: 1 and tea Number of servings: 1 HPI Lt hip Details: Parts of this documentation were recorded by a scribe, this documentation accurately reflects the service provided and the decisions made by me, Dr. Domingo Stark, 09/01/21 [id number]. KEYONA GARCIA is a 75 year old F here today for left hip/leg pain. She states that the injection into her left knee was not helpful and her knee still cracks/pops and grinds. She states that she is having lower left sided back buttock pain and she states that she also has some groin pain on the left side. Does have occasional left thigh achiness but this is not very common. She does feel some numbness/tingling of her BL feet. She states that her left leg is weak. She states that she can not lead with stairs with the left leg d/t generalized leg weakness that she feels she has had for about 1 year and states it is getting weaker and weaker. Denies any surgery of the left hip. She states that she had an injection with Dr. Whitehead in the left SI joint 05/2021 and then had another injection with Dr. Basali into the left hip 07/03/21 which was not helpful at all. SHe states that she cant walk at home unless she uses a walker and she can only move a few feet. Occasional left groin pain. She states that she did have a fall about 3 weeks ago and she has some bruising over the right amaro. She has a right SARAH and she states that she fell onto her right hip but isnt having any right hip pain with movement. She states that the worst of her pain is over the left gluteus. Ortho Exam General General: Yes no acute distress Neurologic: Yes alert and Yes oriented x3 Psychologic: Yes reasonable and appropriate Left Hip Skin/Wound: No Ecchymosis, No soft tissue swelling and No Erythema Hip: Absent eccymosis, soft tissue swelling or erythema Homans Sign: No HIP: internal rotation 30 with reproduction of pain strength intact sensation intact to light touch deep red purpuric lesions no edema today pulses intact 3-4/5 with resisted hip flexion Supplemental Info 06/27/2021 x-ray left hip: Moderate to severe left hip arthrosis with subchondral cyst of the acetabulum and femoral head 06/27/2021 x-ray lumbar spine: Multilevel degenerative disc disease with multilevel disc space narrowing multilevel bilateral facet hypertrophy status post laminectomy L2-L5 Coding Level of Care Code Off vis,est,level 3 Diagnoses Degenerative joint disease of left hip M16.12 Osteoarthritis type: primary Assessment and Plan Assessment and Plan (1) Degenerative joint disease of left hip: Status: Acute Qualifiers: Osteoarthritis type: primary Qualified Code(s): M16.12 - Unilateral primary osteoarthritis, left hip Plan - Dr. Domingo Stark, DO: Patient educated that she does have severe arthritis of the left hip. Patient educated that she is a candidate for a SARAH and this would relieve the deep left buttock pain and occasional groin pain but this will not take care of the low back pain and pain past the mid thigh down the leg. The low back pain and the pain down the leg may be coming from the back. Risks, benefits and alternatives of surgery reviewed including but not limited to bleeding, infection, nerve, artery and/or tissue damage, fracture, VTE, leg length discrepancy, dislocation, need for hip precautions, continued pain and expected post-operative course. Patient wishes to proceed with left robotic assisted SARAH. Recommended that she will be scheduled as inpatient. Educated that she will need to stop all NSAIDs 10 days prior to the replacement. Follow up 2 weeks post op or sooner if pain, swelling, numbness or associated symptoms, or concerns develop. All questions answered. Patient in agreement of plan. 09/01/21 1624<Electronically signed by Domingo Stark DO>Date Domingo Stark DO I have re-examined the patient. There are no clinical changes since date of exam
--- NOTE | 2021-09-30 13:45 | RAD_ITS ---
STUDY: X-RAY - PELVIS AND LEFT HIP REASON FOR EXAM: Postoperative evaluation of left hip arthroplasty. TECHNIQUE: 2 views of the pelvis and hip. COMPARISON: Radiographs 06/27/2021. FINDINGS: There is postoperative gas in overlying skin sergei. Normal bilateral superior and inferior pubic rami. Normal pubic symphysis. Normal bilateral ischial tuberosities. There is a left hip arthroplasty without evidence of complication. RAD/Hip Min 2 Views (Portable) IMPRESSION: Uncomplicated left hip arthroplasty. Electronically Signed: Shalom Jennings MD at 14:58 EST ,
[2021-09-30] MEDS: Cefazolin 1 GM/50 ML BAG IV (14:00)
--- NOTE | 2021-09-30 17:31 | SUR.PHASEI ---
1625 ANESTHESIA AT BEDSIDE. PATIENT AROUSED BY DEEP TACTILE STIMULATION.SCOPOLAMINE PATCH REMOVED. Patient able to state name and location. follows commands.
[2021-09-30 18:02] LABS: Bedside Glucose 102 mg/dL (74-106)
--- NOTE | 2021-09-30 19:30 | PCM.PN.BLA ---
Progress Note The patient is a 75 y/o F w/ PMHx: Anxiety and Depression, Chronic OA, Chronic back pain, RLS, HTN who presents to the [facility] as direct admission per Dr. Stark following L THR on 09/30/21 with post-operative notable lethargy with stable VS otherwise, improved following narcan administration each time but repeat doses required prompting Hospitalist evaluation. From review of records including surgical admissions most recently dated 04/22/2021 with laminectomy decompression L2-L5 patient did not have any reported in the records perioperative significant lethargy requiring any kind of Narcan dosing but from discussions did have potential joint infusion prior to operative procedure or perioperatively that may have included narcotics which potentially she is not received prior. Patient following Narcan able to wake up and talk with safe airway and appropriate vital signs. Patient is too fatigued and still lethargic to answer ROS questions But appropriately following Narcan complains of pain and is asking for something to drink. Physical Exam Narrative Physical Examination: General: Awake some following Narcan, not immediately alert but following some time was able to answer some questions but not oriented still, seated upright in the PACU bed, very lethargic but visibly improving during evaluation following Narcan administration prior just to being evaluated. Skin: Normal color, normal turgor, no icterus, no cyanosis except dressing in place status post left total hip replacement. HEENT: AT/NC, EOM difficult to assess given fatigue and lethargy, PERRLA, mildly dry MM, no carotid bruits or JVD noted. Lungs: Diminished, greater bases, appropriate effort, no rales, ronchi or wheezing. Heart: Currently regular rate and rhythm; no gallop, rub audible. Abdomen: Soft, overweight, no grimacing with palpation, ND, mildly distant hyperactive BS, no HSM. Extremities: No cyanosis, no clubbing, mild bilateral ankle nonpitting edema, status post recent left total hip replacement, once more alert following Narcan patient is moving all extremities including both feet. Neurological: Awake some following Narcan, not immediately alert but following some time was able to answer some questions but not oriented still, seated upright in the PACU bed, very lethargic but visibly improving during evaluation following Narcan administration prior just to being evaluated, cognitive function not baseline intact; pupils equally reactive to light and accommodation, cranial nerves difficult to assess but seem once more alert to be appropriate, moving all 4 extremities, no focal deficits, strength severely global decreased given recent procedure and sedation Psychiatric: Affect appears fatigued, lethargic although improving during evaluation, no acute evidence of depressive or anxiety feelings. Assessment & Plan Assessment/Plan (1) Degenerative joint disease of left hip: QUALIFIERS: Osteoarthritis type: primary Qualified Code(s): M16.12 - Unilateral primary osteoarthritis, left hip PLAN: The patient is a 75 y/o F w/ PMHx: Anxiety and Depression, Chronic OA, Chronic back pain, RLS, HTN who presents to the [facility] as direct admission per Dr. Stark following L THR on 09/30/21 with post-operative notable lethargy with stable VS otherwise, improved following narcan administration each time but repeat doses required prompting Hospitalist evaluation. #1. Post-operative Lethargy: Suspect narcotic related, will transition from MS to PCU status to more closely monitor, given recurrent lethargy following doses may require q1 hour- q 30 minute dosing until patient has improved, will hydrate, maintain on fall and aspiration precautions, avoid any intake until assure mental status stable and intake safe. #2. Severe Osteoarthritis, Left Hip s/p L THR: Failed conservative therapies and treatments, admitted per Dr. Stark for planned L THR, post-operative pain management, bowel regimen, DVT Prophylaxis, PT/OT/CM per Orthopedic surgery discretion. #3. Hypertension: Continue home regimen including metoprolol once oral intake safe, PRN hydralazine. Did not get evening dose thus could consider IV x1 if needed. #4. Anxiety and depression: We will continue patient home BuSpar regimen once oral intake is safe. #5. Restless leg syndrome: Per current review of records patient is on any chronic regimen, if necessary may add low-dose Requip. #6. DVT prophylaxis: SCDs, chemoprophylaxis per orthopedic surgery discretion given recent intervention. Visit Charges Inpatient E&M: 16785 [facility] Hosp L3
[2021-09-30] MEDS: oxyCODONE 5 MG Tablet PO (23:46)
[2021-10-01] VITALS (12 sets, daily range): BP systolic 97–132; BP diastolic 51–89; PULSE 78–104; RESP 12–18; TEMP 36.6–37.5; O2SAT 92–100; BMI 26.9
[2021-10-01] MEDS: Cefazolin 1 GM/50 ML BAG IV ×2 (00:23→05:59)
[2021-10-01] MEDS: Lactated Ringers 1,000 ML 125 ML IV ×3 (00:34→14:24)
[2021-10-01] MEDS: Acetaminophen 500 MG Tablet 1000 MG PO ×3 (05:59→22:25)
[2021-10-01] MEDS: oxyCODONE 5 MG Tablet PO ×3 (05:59→16:39)
[2021-10-01 06:06] LABS: Hematocrit 33.1 % (37-47); Hemoglobin 10.9 g/dL (12.0-15.0); Mean Corp Hgb Conc 32.9 g/dL (32-36); Mean Corpuscular Hgb 30.5 pg (27.0-32.0); Mean Corpuscular Volume 92.7 fL (81-99); Mean Platelet Vol. 9.8 fl (6.2-12.0); Platelet Count 193 K/mm3 (150-450); RBC Distribution Width CV 13.5 % (11.6-14.6); RBC Distribution Width SD 46.2 fl (35.1-43.9); Red Blood Count 3.57 M/mm3 (4.2-5.4); White Blood Count 9.3 K/mm3 (4.4-11.0)
[2021-10-01 06:34] LABS: Anion Gap 5 (5-15); BUN 14 mg/dL (7-18); BUN/Creat Ratio 18.8 RATIO (10-20); Calcium,Total 7.8 mg/dL (8.5-10.1); Chloride 98 mmol/L (98-107); Creatinine, Serum 0.74 mg/dL (0.55-1.02); EST Glomerular Filtration Rate 80 mL/min (>60); Est Glom Filt Rate - Afr Amer 97 mL/min (>60); Estimated Creatinine Clearance 37.85 ml/min; Glucose 109 mg/dL (74-106); Potassium 3.9 mmol/L (3.5-5.1); Sodium Level 133 mmol/L (136-145)
[2021-10-01] MEDS: Senna/Docusate Sodium 1 Tablet 2 TABLET PO ×2 (08:11→22:24)
[2021-10-01] MEDS: Multivitamins,Ther W-Minerals Tablet 1 TABLET PO (08:11)
[2021-10-01] MEDS: APIXABAN 2.5 MG TABLET PO ×2 (10:06→22:22)
[2021-10-01] MEDS: busPIRone 5 MG Tablet 10 MG PO ×2 (10:06→22:21)
--- NOTE | 2021-10-01 10:25 | CASEMGMT ---
SARA INGRAM assessment: Face to Face with patient for initial transition planning/care coordination assessment. SARA INGRAM introduced self and role at [facility], pt voices understanding and consents to assessment. Pt is sitting up in chair in no distress on room air. Pt is A/Ox4 and answers all questions appropriately. Care providers, pharmacy, and demographics verified/updated. Presentation: Pt brought in for left total hip arthoplasty Admitting dx: Left total hip PCP: Carmen Specialists: radha Stark; CHAUNCEY Whitehead Preferred Pharmacy: [facility] Insurance: [facility] Prescription Benefit: [facility] Living Will/HPOA: Pt has LW but is unsure about HPOA. Pt's LW is on file at [facility]. LNOK: Ramirez Gutiérrez, son; Zion Pop, friend Living Arrangements: Pt lives alone in 1 story condo with 2 steps in and states no concerns at home. Pt is independent with ADL's. Transportation: Pt's friend drives and states no transportation concerns. DME/HHC: Pt has the following DME: cane, rollator, grab bars, and shower chair. Pt states no need for any further DME. Pt states no hx of HHC or SNF and states already has OP therapy set up at [facility] and first appt is 10/03/21. Pt states no concerns with going home at time of discharge. Pt is retired. Pt states does not smoke cigarettes or drink ETOH. Pt states no further concerns/needs. CM to follow for any further discharge planning/needs. Advised pt to ask for CM if any further questions/concerns/needs arise, voices understanding. Pt Goal: Home Plan: [place] SARA INGRAM
--- NOTE | 2021-10-01 11:18 | PCM.PN.HOSP ---
Documented by User: Markell MEJIA 10/01/21 11:32 Subjective Subjective Patient is a 75-year-old female comfortably resting in a chair, alert and orient x3. Patient reports feeling drowsy denies any others symptoms. Does not appear in acute distress. Objective Data Objective Data Vital Signs: Vital Signs Temp Pulse Resp BP Pulse Ox 98.1 F 92 18 97/51 L 96 10/01/21 10:13 10/01/21 10:13 10/01/21 10:13 10/01/21 10:13 10/01/21 10:13 Oxygen Flow Rate (L/min) 2 Oxygen Delivery Method Room Air Weight: 152 lb 5.431 oz Body Mass Index (BMI) 27.8 Intake & Output: Intake and Output for Last 24 Hours 09/29/21 09/30/21 10/01/21 23:59 23:59 23:59 Intake Total 2374 / 2374 2331.25 / 2331.25 Output Total 1000 / 1000 Balance 2374 / 1774 1331.25 / 1331.25 Lab / Micro Data Result Diagrams: 10/01/21 05:41 10/01/21 05:41 Labs: Laboratory Results - last 24 hr 09/30/21 17:58: POC Glucose 102 10/01/21 05:41: WBC 9.3, RBC 3.57 L, Hgb 10.9 L, Hct 33.1 L, MCV 92.7, MCH 30.5, MCHC 32.9, RDW Std Deviation 46.2 H, RDW Coeff of Edmund 13.5, Plt Count 193, MPV 9.8 10/01/21 05:41: Sodium 133 L, Potassium 3.9, Chloride 98, Carbon Dioxide 30.0, Anion Gap 5, BUN 14, Creatinine 0.74, Estim Creat Clear Calc 37.85, Est GFR (MDRD) Af Amer 97, Est GFR (MDRD) Non-Af 80, BUN/Creatinine Ratio 18.8, Glucose 109 H, Calcium 7.8 L Micro: Microbiology 09/17/21 14:55 Swab (Method) Nasal Screen MRSA/MSSA - Final Radiography Diagnostic Testing: Radiology Impression Hip X-Ray 09/30/21 13:45 IMPRESSION: Uncomplicated left hip arthroplasty. Electronically Signed: Shalom Jennings MD at 14:58 EST , Physical Exam Const alert, oriented x3 and no apparent distress HEENT head/scalp atraumatic and moist oral mucous membranes Head and Scalp: normocephalic Eyes PERRL and conjunctivae normal Neck no lymphadenopathy, supple and no JVD Resp normal respiratory effort, no retractions, no use of accessory muscles and clear to auscultation bilaterally Cardio regular rate, regular rhythm, no murmurs and no JVD GI normal to inspection, nondistended, normoactive bowel sounds Extremity normal to inspection Skin no rashes or lesions noted Neuro CN's II-XII intact bilaterally Psych affect normal Assessment & Plan Assessment/Plan (1) Degenerative joint disease of left hip: QUALIFIERS: Osteoarthritis type: primary Qualified Code(s): M16.12 - Unilateral primary osteoarthritis, left hip PLAN: Patient is a 75-year-old female who presents to the hospital medicine service on consult for postoperative lethargy after undergoing left total hip arthroplasty for left hip degenerative joint disease. Course and management as below. 1) postoperative lethargy Resolved, patient is appropriately alert and oriented to person, time, place, and president. We will continue to monitor and maintain on fall precautions, defer postoperative management to primary service. 2) Hypotension Currently 97/51, fluids initiated per orthopedics. 4) HTN Continue home BP regimen, hold parameters in place. 5) depression/anxiety Continue home BuSpar. 4) osteoarthritis POD 1 s/p left hip total arthroplasty. Management per orthopedics. DVT prophylaxis - per orthopedic surgery. Patient seen by Markell Palacios PA-C, under the supervision of Dr. Magallanes. Documented by User: Dr. Adal Magallanes MD 10/01/21 11:48 Objective Data Lab / Micro Data Result Diagrams: 10/01/21 05:41 10/01/21 05:41 Assessment & Plan Addt'l Comments This patient was seen in conjunction with Markell Palacios PA-C. I have independently interviewed and examined the patient and reviewed pertinent historical, laboratory, and other data. Please refer to Markell Palacios PA-C's note for details of this patient's presentation, findings, and recommendations. I have reviewed Markell Palacios PA-C's note and concur with documented findings. In brief, patient is a 75-year-old female who underwent left total hip arthroplasty by Dr. Stark On 10/01/2027,the hospitalist service was consulted to assist with management of patient medical comorbidities including postop lethargy and hypotension Physical Examination: GENERAL: cooperative HEENT: Atraumatic; EYES; Anicteric, Normal Conjunctiva NECK; supple, normal thyroid, RESPIRATORY: Diminished to auscultation CARDIOVASCULAR: Regular S1 S2, GI: soft, normoactive bowel sounds, : No Renal angle tenderness; EXTREMITIES: No edema, no clubbing, MUSCULOSKELETAL: no muscle wasting NEURO: Awake; no lateralizing signs. SKIN: No Rash PSYCH; Flat affect Assessment: 1. Status post left total hip arthroplasty 2. Postop hypotension?resolved 3. Essential hypertension 4. Degenerative joint disease 5. Depression with anxiety 6. Restless leg syndrome 7. DVT prophylaxis Recommendations: 1. I have discussed the results of my overview and impressions with the patient 2. Options for management were reviewed Total time spent by myself and the advanced practice practitioner evaluating patient, reviewing labs, subsequent management decisions, discussion with patient as well as other providers 40 minutes ( 25 of which was spent by myself) Charges/Coding Visit Charges Inpatient E&M: 15563 Subs Hosp L2 Hospital Course Consultations Consultations: Consultations 09/30/21 19:17 Consult: Hospitalist Routine Consulting Provider: Domingo Stark Reason for Consult: repeat narcan administration EMERGENT Consult: No MD Notified: Yes Date Notified: 09/30/21 Time Notified: 19:17 Method of Notification: Page Comments:: Dr Brennan spoke with Dr Calderon in PACU Operations - (complete laminectomy decompression of L2-3, L3-4, and L4-5 )
--- NOTE | 2021-10-01 11:56 | PN.ORTHO_ITS ---
Subjective Subjective Patient seen and examined. Doing well today. Denies fever chills nausea vomiting shortness of breath or chest pain. Admits to fatigue. She had a prolonged recovery after surgery requiring Narcan administration. She is alert and oriented today. Objective Data Objective Data Vital Signs: Vital Signs Temp Pulse Resp BP Pulse Ox 98.1 F 92 18 97/51 L 96 10/01/21 10:13 10/01/21 10:13 10/01/21 10:13 10/01/21 10:13 10/01/21 10:13 Oxygen Flow Rate (L/min) 2 Oxygen Delivery Method Room Air Weight: 152 lb 5.431 oz Body Mass Index (BMI) 27.8 Intake & Output: Intake and Output for Last 24 Hours 09/29/21 09/30/21 10/01/21 23:59 23:59 23:59 Intake Total 2374 / 2374 2931.25 / 2931.25 Output Total 1000 / 1000 Balance 2374 / 1774 1931.25 / 1931.25 Lab / Micro Data Result Diagrams: 10/01/21 05:41 10/01/21 05:41 Labs: Laboratory Results - last 24 hr 09/30/21 17:58: POC Glucose 102 10/01/21 05:41: WBC 9.3, RBC 3.57 L, Hgb 10.9 L, Hct 33.1 L, MCV 92.7, MCH 30.5, MCHC 32.9, RDW Std Deviation 46.2 H, RDW Coeff of Edmund 13.5, Plt Count 193, MPV 9.8 10/01/21 05:41: Sodium 133 L, Potassium 3.9, Chloride 98, Carbon Dioxide 30.0, Anion Gap 5, BUN 14, Creatinine 0.74, Estim Creat Clear Calc 37.85, Est GFR (MDRD) Af Amer 97, Est GFR (MDRD) Non-Af 80, BUN/Creatinine Ratio 18.8, Glucose 109 H, Calcium 7.8 L Micro: Microbiology 09/17/21 14:55 Swab (Method) Nasal Screen MRSA/MSSA - Final Radiography Diagnostic Testing: Radiology Impression Hip X-Ray 09/30/21 13:45 IMPRESSION: Uncomplicated left hip arthroplasty. Electronically Signed: Shalom Jennings MD at 14:58 EST , Physical Exam Const alert, oriented x3 and no apparent distress Constitutional Narrative: Fatigued General Appearance: cooperative Extremity Extremity Narrative: Hip dressing clean dry and intact compartments soft n eurovascular intact EHL tibialis anterior gastrocsoleus intact sensation light touch palpable pedal pulses Assessment & Plan Assessment/Plan (1) S/P total hip arthroplasty: QUALIFIERS: Laterality: left Qualified Code(s): Z96.642 - Presence of left artificial hip joint PLAN: Postop day #1 left total hip arthroplasty DVT prophylaxis Eliquis 2.5 mg twice daily for 3 weeks postop SCDs and YEIMI hose. Review PT OT weightbearing as tolerated with hip precautions After anesthesia requiring close observation and Narcan. Doing well now vital signs stable. Patient still very fatigued but alert. She was up with physical therapy. Patient originally set up for outpatient physical therapy postoperatively however she does not feel she will be able to make this as she does live alone is requesting home health care and home physical therapy she does not want to go to a rehab facility because of her puppy. Consult case management to make arrangements follow-up in the office 2 weeks likely discharge home tomorrow.
--- NOTE | 2021-10-01 12:00 | PCM.DC ---
Discharge Instructions Diet Discharge Diet: No restrictions Activity Weight Bearing Status: Weight bearing as tolerated Dressing / Incision Call your doctor if you observe: Shortness of breath and Chest pain Additional Dressing/Incision Instructions:: Do not shower 72hrs. Begin daily showering warm water antibacterial soap postop day #3( 72hrs Post-operatively) and then daily. Leave the dressing on for 72 hours postoperatively then may remove prior to first shower and change dressing daily after this until no drainage for 2 consecutive days then may leave open to air. Follow hip precautions that were reviewed in hospital. Wear compression stockings, may remove at night. Start physical therapy as directed in hospital. Follow prescriptions instructions do not take any other pain medication or differ dosing without consulting your physician. Do not take oral NSAIDs until blood thinner has been completed , then may begin the day after completion if needed . Call Dr. Stark's office with any concerns. Follow Up Care Please Follow Up With: Domingo Stark DO When: 2 Weeks Test Results: Test results from this visit will be discussed in further detail at your follow-up appointment, if applicable. Discharge Plan Admission Admit Date/Time: 09/30/21 08:50 Attending Provider: Domingo Stark Primary Care Provider: Gloria Morales Consulting Providers: Domingo Stark Discharge Orders/Prescriptions Prescriptions: New acetaminophen 500 mg Tablet 1,000 mg PO Q8 Qty: 100 RF: 0 Eliquis 2.5 mg Tablet 2.5 mg PO BID Qty: 42 RF: 0 oxycodone 5 mg Tablet 2.5 - 10 mg PO Q4H PRN PRN (Reason: Pain Score 4-10) 7 Days Qty: 60 RF: 0 Continued magnesium oxide 400 mg (241.3 mg magnesium) tablet 400 mg PO DAILY RF: 0 Metamucil Fiber Singles 1 PACKET packet 1 packet PO BID RF: 0 multivitamin with folic acid 1 TABLET tablet 1 tab PO DAILY RF: 0 [id number]-fish oil-D3 1 EACH capsule 1 ea PO DAILY RF: 0 buspirone 10 MG tablet 10 mg PO BID RF: 0 glucos sul [id number]-C-Mn 1 EACH capsule 1 ea PO BID RF: 0 docusate sodium 100 MG capsule 100 mg PO BID RF: 0 clobetasol 0.05 % cream 1 applic TOPICAL PRN PRN (Reason: Skin Cleansing) RF: 0 calcium 250 mg Tablet 250 mg PO DAILY RF: 0 vitamin E 100 unit Tablet 100 unit PO DAILY RF: 0 elderberry fruit 200 mg Capsule 200 mg PO DAILY RF: 0 metoprolol tartrate 25 mg tablet 25 mg PO BID RF: 0 Discontinued hydrocodone-acetaminophen 5-325 mg tablet 1 tab PO TID RF: 0 aspirin 81 MG tablet,delayed release (DR/EC) 81 mg PO DAILY RF: 0 turmeric 400 mg Capsule 400 mg PO DAILY RF: 0 acetaminophen [Tylenol] 325 mg Tablet 1,300 mg PO TID RF: 0 Referrals / Follow Up: Gloria Morales MD [Primary Care Provider] -
--- NOTE | 2021-10-01 18:44 | NURSING ---
This RN updated pt's son, Jeremy with pt's permission.
[2021-10-01] MEDS: Metoprolol Tartrate 25 MG Tablet PO (22:22)
[2021-10-01] MEDS: Lactated Ringers 1,000 ML 15 ML IV (22:29)
[2021-10-02] VITALS (14 sets, daily range): BP systolic 96–133; BP diastolic 52–78; PULSE 75–104; RESP 18; TEMP 36.4–37.8; O2SAT 92–98; BMI 26.9
[2021-10-02] MEDS: oxyCODONE 5 MG Tablet PO (00:22)
[2021-10-02 05:35] LABS: Hematocrit 28.4 % (37-47); Hemoglobin 9.9 g/dL (12.0-15.0); Mean Corp Hgb Conc 34.9 g/dL (32-36); Mean Corpuscular Volume 91.9 fL (81-99); Mean Platelet Vol. 10.2 fl (6.2-12.0); Platelet Count 176 K/mm3 (150-450); RBC Distribution Width CV 13.4 % (11.6-14.6); RBC Distribution Width SD 45.5 fl (35.1-43.9); Red Blood Count 3.09 M/mm3 (4.2-5.4); White Blood Count 10.9 K/mm3 (4.4-11.0)
[2021-10-02] MEDS: Acetaminophen 500 MG Tablet 1000 MG PO ×3 (05:53→21:48)
[2021-10-02] MEDS: Multivitamins,Ther W-Minerals Tablet 1 TABLET PO (08:46)
[2021-10-02] MEDS: Senna/Docusate Sodium 1 Tablet 2 TABLET PO ×2 (08:46→21:49)
[2021-10-02] MEDS: Metoprolol Tartrate 25 MG Tablet PO ×2 (08:46→21:50)
[2021-10-02] MEDS: busPIRone 5 MG Tablet 10 MG PO ×2 (08:46→21:49)
[2021-10-02] MEDS: APIXABAN 2.5 MG TABLET PO ×2 (08:46→21:50)
--- NOTE | 2021-10-02 08:50 | PCM.PN.HOSP ---
Subjective Subjective patient is a 75-year-old female who underwent left total hip arthroplasty by Dr. Stakr On 09/30/2021, the hospitalist service was consulted to assist with management of patient medical comorbidities Objective Data Objective Data Vital Signs: Vital Signs Temp Pulse Resp BP Pulse Ox 98.6 F 86 18 104/55 L 94 10/02/21 08:45 10/02/21 08:46 10/02/21 08:45 10/02/21 08:46 10/02/21 08:45 Oxygen Flow Rate (L/min) 2 Oxygen Delivery Method Room Air Weight: 69.1 kg Body Mass Index (BMI) 27.8 Intake & Output: Intake and Output for Last 24 Hours 09/30/21 10/01/21 10/02/21 23:59 23:59 23:59 Intake Total 2374 / 2374 5229.17 / 5229.17 Output Total 1000 / 1225 975 / 975 Balance 2374 / 1774 4229.17 / 4004.17 -975 / -975 Lab / Micro Data Result Diagrams: 10/02/21 04:47 10/01/21 05:41 Labs: Laboratory Results - last 24 hr 10/02/21 04:47: WBC 10.9, RBC 3.09 L, Hgb 9.9 L, Hct 28.4 L, MCV 91.9, MCH 32.0, MCHC 34.9 D, RDW Std Deviation 45.5 H, RDW Coeff of Edmund 13.4, Plt Count 176, MPV 10.2 Micro: Microbiology 09/17/21 14:55 Swab (Method) Nasal Screen MRSA/MSSA - Final Physical Exam Narrative GENERAL: cooperative HEENT: Atraumatic; EYES; Anicteric, Normal Conjunctiva NECK; supple, normal thyroid, RESPIRATORY: Diminished to auscultation CARDIOVASCULAR: Regular S1 S2, GI: soft, normoactive bowel sounds, : No Renal angle tenderness; EXTREMITIES: No edema, no clubbing, MUSCULOSKELETAL: no muscle wasting NEURO: Awake; no lateralizing signs. SKIN: No Rash PSYCH; Flat affect Assessment & Plan Assessment/Plan (1) Degenerative joint disease of left hip: QUALIFIERS: Osteoarthritis type: primary Qualified Code(s): M16.12 - Unilateral primary osteoarthritis, left hip PLAN: In brief, patient is a 75-year-old female who underwent left total hip arthroplasty by Dr. Stark On 09/30/2021,the hospitalist service was consulted to assist with management of patient medical comorbidities including postop lethargy and hypotension 1. Status post left total hip arthroplasty -Procedure performed on 09/30/2021; patient postoperative orders regarding PT OT DVT prophylaxis and pain management as per primary service 2. Postop hypotension ?resolved; will continue with monitoring of patient antihypertensives 3. Essential hypertension -Patient was relatively hypotensive following surgery blood pressure has since stabilized 4. Degenerative joint disease -Pain meds as needed 5. Depression with anxiety 6. Restless leg syndrome 7. DVT prophylaxis Charges/Coding Visit Charges Inpatient E&M: 84719 Subs Hosp L2
--- NOTE | 2021-10-02 10:47 | CASEMGMT ---
Addendum entered by Gilberto Jimenez 10/02/21 11:57: Dr Stark notified pt agreeable to SNF and pre-cert will need to be obtained. Dr Magallanes also notified of above. Addendum entered by Gilberto Jimenez 10/02/21 11:37: Call placed to [facility] and referral cancelled. Addendum entered by Gilberto Jimenez 10/02/21 11:33: PT/OT have worked w/pt this morning and SNF is recommended. Pt made aware of recommendations and that therapy does not feel it would be safe for her to go home alone. Pt states is concerned about her puppy as she states it is already grieving about her being away from home. Pt states her friend is taking care of her puppy. Questions answered. Pt was provided with list of SNF providers including quality and resource use data and consistent with the patient's preferred geographic region, medical needs, and insurance network. Pt states she would look over the list and would let staff know what she decides. Original Note: SARA INGRAM NOTE: Per Dr Stark order, [facility] to be set up. SARA INGRAM to room to discuss discharge planning: HHC vs OP therapy. Pt states she would like [facility] now for therapy. Declines need for SN. Pt was provided with list of [facility] providers including quality and resource use data and consistent with the patient's preferred geographic region, medical needs, and insurance network. The pt's preferred provider is [facility]. Call placed to [facility] and referral made. Awaiting acceptance. Call placed to [facility] and spoke w/Chloe. She was notified pt will be going home w/HHC instead of OP therapy. She states she will cancel pt's appt. Pt made aware. Per therapy notes yesterday, pt was Mod assist of 2. PT/OT to work w/pt again today. SARA INGRAM will f/u to ensure safe discharge plan. Rogelio HOPE RN, CM
--- NOTE | 2021-10-02 12:14 | CASEMGMT ---
Per RN NATALY Macias patient is in agreement with SNF. She only chose one facility as she did not care for the other ones. Her choice is [facility] ([facility]). Marie Garza/deep director traffic and planning called [facility] and they only have semi-private rooms available. ROSALINO notified patient and she does not want a semi-private room. ROSALINO told patient she will have to choose another facility. Patient was asking about [place] and SW told her they do not have any beds available. Patient was going to call her friend regarding help with picking a facility. ROSALINO will check back. Alberta Warren [employer] MGMT TECH JACOB
--- NOTE | 2021-10-02 12:25 | PCM.PN.ORT ---
Subjective Subjective Upon entering room the patient is seated upright and comfortable. She was seen and examined. She states that she is doing well overall today. She denies any nausea, vomiting, fevers, chills, shortness of breath or chest pains. She has been seen by PT and she states that ___. Objective Data Objective Data Vital Signs: Vital Signs Temp Pulse Resp BP Pulse Ox 98.6 F 85 18 104/55 L 94 10/02/21 10:44 10/02/21 11:00 10/02/21 10:44 10/02/21 10:44 10/02/21 10:44 Oxygen Flow Rate (L/min) 2 Oxygen Delivery Method Room Air Weight: 152 lb 5.431 oz Body Mass Index (BMI) 27.8 Intake & Output: Intake and Output for Last 24 Hours 09/30/21 10/01/21 10/02/21 23:59 23:59 23:59 Intake Total 2374 / 2374 5229.17 / 5229.17 395.25 / 395.25 Output Total 1000 / 1225 975 / 975 Balance 2374 / 1774 4229.17 / 4004.17 -579.75 / -579.75 Lab / Micro Data Result Diagrams: 10/02/21 04:47 10/01/21 05:41 Labs: Laboratory Results - last 24 hr 10/02/21 04:47: WBC 10.9, RBC 3.09 L, Hgb 9.9 L, Hct 28.4 L, MCV 91.9, MCH 32.0, MCHC 34.9 D, RDW Std Deviation 45.5 H, RDW Coeff of Edmund 13.4, Plt Count 176, MPV 10.2 Micro: Microbiology 09/17/21 14:55 Swab (Method) Nasal Screen MRSA/MSSA - Final Physical Exam Const alert and oriented x3 General Appearance: cooperative Extremity Extremity Narrative: Left hip dressing is clean, dry and intact. Negative homans. Soft compartments. Able to plantarflex, dorsiflex and wiggle toes. Intact sensation to light touch throughout the left lower extremity. Palpable pedal pulses.
--- NOTE | 2021-10-02 12:33 | PN.ORTHO_ITS ---
Subjective Subjective Upon entering room the patient is seated upright and comfortable. She was seen and examined. She states that she is doing well overall today. She is still feeling fatigued. She denies any nausea, vomiting, fevers, chills, shortness of breath or chest pains. She has been seen by PT and she states that she was able to walk with a walker to the restroom and step over a box with PT's assistance. She is in the most pain when she is ambulating. While she is resting her pains are minimal. Objective Data Objective Data Vital Signs: Vital Signs Temp Pulse Resp BP Pulse Ox 98.6 F 85 18 104/55 L 94 10/02/21 10:44 10/02/21 11:00 10/02/21 10:44 10/02/21 10:44 10/02/21 10:44 Oxygen Flow Rate (L/min) 2 Oxygen Delivery Method Room Air Weight: 152 lb 5.431 oz Body Mass Index (BMI) 27.8 Intake & Output: Intake and Output for Last 24 Hours 09/30/21 10/01/21 10/02/21 23:59 23:59 23:59 Intake Total 2374 / 2374 5229.17 / 5229.17 395.25 / 395.25 Output Total 1000 / 1225 975 / 975 Balance 2374 / 1774 4229.17 / 4004.17 -579.75 / -579.75 Lab / Micro Data Result Diagrams: 10/02/21 04:47 10/01/21 05:41 Labs: Laboratory Results - last 24 hr 10/02/21 04:47: WBC 10.9, RBC 3.09 L, Hgb 9.9 L, Hct 28.4 L, MCV 91.9, MCH 32.0, MCHC 34.9 D, RDW Std Deviation 45.5 H, RDW Coeff of Edmund 13.4, Plt Count 176, MPV 10.2 Micro: Microbiology 09/17/21 14:55 Swab (Method) Nasal Screen MRSA/MSSA - Final Physical Exam Const alert and oriented x3 General Appearance: cooperative Extremity Extremity Narrative: Left hip dressing is clean, dry and intact. Negative homans. Soft compartments. Able to plantarflex, dorsiflex and wiggle toes. Intact sensation to light touch throughout the left lower extremity. Palpable pedal pulses. Assessment & Plan Assessment & Plan (1) Degenerative joint disease of left hip: Qualifiers: Osteoarthritis type: primary Qualified Code(s): M16.12 - Unilateral primary osteoarthritis, left hip Plan: Postop day #2 left total hip arthroplasty DVT prophylaxis Eliquis 2.5 mg twice daily for 3 weeks postop SCDs and YEIMI esteban. Review PT/OT weightbearing as tolerated with hip precautions. Plan for rehab at [facility], [facility] and transfer patient when available. Plan Detail Other Medications: New: acetaminophen 1,000 mg (2 x 500 mg) PO Q8 100 tabs 0RF apixaban (Eliquis) 2.5 mg PO BID 42 tabs 0RF oxycodone 2.5 - 10 mg (0.5 - 2 x 5 mg) PO Q4H PRN 7 days PRN 60 tabs 0RF Pain Score 4-10 G89.18, Z96.642
--- NOTE | 2021-10-02 12:43 | CASEMGMT ---
SW spoke with patient and she is not sure where to go. SW went over each facility on her list that takes her insurance. Patient said she heard bad things about most of them. Patient was agreeable to a referral being sent to [facility]. She would like to know if they have private showers or a shower room. ROSALINO spoke with [employer] assistant manager Kayla and asked that she send a referral to [facility] and check on their shower set up. Alberta JAMES
--- NOTE | 2021-10-02 12:47 | PCM.TXEXTCAR ---
Diet 10/01/21 10:12 Diet: Regular - General Is pt able to select menu?: No Wound(s) L HIP: Wound Type: Surgical Incision Suggestions for Active Care Positions to Avoid: Post total hip arthroplasty precautions Therapies Weight Bearing: Weight bearing as tolerated Extremity Affected:: Left Lower Physical Therapy: Eval and Treat Occupational Therapy: Eval and Treat Problem/Diagnosis (1) Degenerative joint disease of left hip: Status: Acute Allergies/Procedures Done in Hospital Allergies citalopram Adverse Reaction (Verified 09/30/21 09:44) ANXIETY fluoxetine Adverse Reaction (Verified 09/30/21 09:44) ANXIETY sertraline Adverse Reaction (Verified 09/30/21 09:44) ANXIETY ANXIOUS venlafaxine HCl [From Effexor] Adverse Reaction (Verified 09/30/21 09:44) ANXIETY Type of Care/Length of Stay Estimated LOS: Convalescent Care Less Than 30 days Type of Care Needed: Skilled Rehab Potential: Good Prognosis: Good Additional Orders/Day of Discharge Day of Discharge: 10/03/21 Follow Up Care Please Follow Up With: Domingo Stark DO When: 2 week post-op Discharge Plan Admission Admit Date/Time: 09/30/21 08:50 Attending Provider: Domingo Stark Primary Care Provider: Gloria Morales Consulting Providers: Domingo Stark Discharge Orders/Prescriptions Prescriptions: New acetaminophen 500 mg Tablet 1,000 mg PO Q8 Qty: 100 RF: 0 Eliquis 2.5 mg Tablet 2.5 mg PO BID Qty: 42 RF: 0 oxycodone 5 mg Tablet 2.5 - 10 mg PO Q4H PRN PRN (Reason: Pain Score 4-10) 7 Days Qty: 60 RF: 0 Continued magnesium oxide 400 mg (241.3 mg magnesium) tablet 400 mg PO DAILY RF: 0 Metamucil Fiber Singles 1 PACKET packet 1 packet PO BID RF: 0 multivitamin with folic acid 1 TABLET tablet 1 tab PO DAILY RF: 0 uhrnp-3h-ahi-epa-fish oil-D3 1 EACH capsule 1 ea PO DAILY RF: 0 buspirone 10 MG tablet 10 mg PO BID RF: 0 glucos sul [id number]-C-Mn 1 EACH capsule 1 ea PO BID RF: 0 docusate sodium 100 MG capsule 100 mg PO BID RF: 0 clobetasol 0.05 % cream 1 applic TOPICAL PRN PRN (Reason: Skin Cleansing) RF: 0 calcium 250 mg Tablet 250 mg PO DAILY RF: 0 vitamin E 100 unit Tablet 100 unit PO DAILY RF: 0 elderberry fruit 200 mg Capsule 200 mg PO DAILY RF: 0 metoprolol tartrate 25 mg tablet 25 mg PO BID RF: 0 Discontinued hydrocodone-acetaminophen 5-325 mg tablet 1 tab PO TID RF: 0 aspirin 81 MG tablet,delayed release (DR/EC) 81 mg PO DAILY RF: 0 turmeric 400 mg Capsule 400 mg PO DAILY RF: 0 acetaminophen [Tylenol] 325 mg Tablet 1,300 mg PO TID RF: 0 Referrals / Follow Up: Gloria Morales MD [Primary Care Provider] - Morris Bethea PA [PHYSICIAN FRIEND OF THE COURT] - 10/13/21 11:00 am Disposition Disposition (needs filled in before D/C Order can be placed): Group Home Facility
--- NOTE | 2021-10-02 14:11 | CASEMGMT ---
Discharge Physical Education Department Chair Elsi [facility] called and is accepting patient. Elsi [facility] will start Pre-cert. ROSALINO [place] was notified. Will Follow Up. Kayla Yee Discharge Physical Education Department Chair
--- NOTE | 2021-10-02 14:24 | CASEMGMT ---
SW spoke with patient and let her know that [facility] can take her. SW let patient know that [facility] has private showers and private rooms. Patient was in agreement. Plan: d/c to [facility] pending pre-cert. Alberta JAMES
[2021-10-02] MEDS: Polyethylene Glycol 3350 17 GM PACKET PO (21:47)
[2021-10-03] VITALS (13 sets, daily range): BP systolic 104–136; BP diastolic 51–60; PULSE 68–95; RESP 16–18; TEMP 36.6–37.2; O2SAT 94–97
[2021-10-03 05:12] LABS: Hematocrit 30.4 % (37-47); Mean Corp Hgb Conc 32.9 g/dL (32-36); Mean Corpuscular Hgb 30.7 pg (27.0-32.0); Mean Corpuscular Volume 93.3 fL (81-99); Mean Platelet Vol. 10.4 fl (6.2-12.0); Platelet Count 192 K/mm3 (150-450); RBC Distribution Width CV 13.5 % (11.6-14.6); RBC Distribution Width SD 46.6 fl (35.1-43.9); Red Blood Count 3.26 M/mm3 (4.2-5.4); White Blood Count 8.9 K/mm3 (4.4-11.0)
[2021-10-03] MEDS: Acetaminophen 500 MG Tablet 1000 MG PO ×3 (05:24→20:51)
--- NOTE | 2021-10-03 07:27 | PCM.PN.HOSP ---
Subjective Subjective Patient was assessed by physical therapy recommendation for patient to be discharged to a residential facility for skilled therapy was made. Case management subsequently consulted awaiting insurance approval Objective Data Objective Data Vital Signs: Vital Signs Temp Pulse Resp BP Pulse Ox 98.5 F 82 18 136/60 H 97 10/03/21 03:05 10/03/21 07:00 10/03/21 03:05 10/03/21 03:05 10/03/21 03:08 Oxygen Flow Rate (L/min) 2 Oxygen Delivery Method Room Air Weight: 69.1 kg Body Mass Index (BMI) 27.8 Intake & Output: Intake and Output for Last 24 Hours 10/01/21 10/02/21 10/03/21 23:59 23:59 23:59 Intake Total 5229.17 / 5229.17 515.25 / 635.25 320 / 320 Output Total 1000 / 1225 975 / 1175 550 / 550 Balance 4229.17 / 4004.17 -459.75 / -539.75 -230 / -230 Lab / Micro Data Result Diagrams: 10/03/21 04:01 10/01/21 05:41 Labs: Laboratory Results - last 24 hr 10/03/21 04:01: WBC 8.9, RBC 3.26 L, Hgb 10.0 L, Hct 30.4 L, MCV 93.3, MCH 30.7, MCHC 32.9 D, RDW Std Deviation 46.6 H, RDW Coeff of Edmund 13.5, Plt Count 192, MPV 10.4 Micro: Microbiology 09/17/21 14:55 Swab (Method) Nasal Screen MRSA/MSSA - Final Physical Exam Narrative GENERAL: cooperative HEENT: Atraumatic; EYES; Anicteric, Normal Conjunctiva NECK; supple, normal thyroid, RESPIRATORY: Diminished to auscultation CARDIOVASCULAR: Regular S1 S2, GI: soft, normoactive bowel sounds, : No Renal angle tenderness; EXTREMITIES: No edema, no clubbing, MUSCULOSKELETAL: no muscle wasting NEURO: Awake; no lateralizing signs. SKIN: No Rash PSYCH; Flat affect Assessment & Plan Assessment/Plan (1) Degenerative joint disease of left hip: QUALIFIERS: Osteoarthritis type: primary Qualified Code(s): M16.12 - Unilateral primary osteoarthritis, left hip PLAN: In brief, patient is a 75-year-old female who underwent left total hip arthroplasty by Dr. Stark On 09/30/2021,the hospitalist service was consulted to assist with management of patient medical comorbidities including postop lethargy and hypotension 1. Status post left total hip arthroplasty -Procedure performed on 09/30/2021; patient postoperative orders regarding PT OT DVT prophylaxis and pain management as per primary service -10/03/2021; Patient was assessed by physical therapy recommendation for patient to be discharged to a residential facility for skilled therapy was made. Case management subsequently consulted awaiting insurance approval 2. Postop hypotension ?resolved; will continue with monitoring of patient antihypertensives 3. Essential hypertension -Patient was relatively hypotensive following surgery blood pressure has since stabilized 4. Degenerative joint disease -Pain meds as needed 5. Depression with anxiety 6. Restless leg syndrome 7. DVT prophylaxis Charges/Coding Visit Charges Inpatient E&M: 68825 Subs Hosp L2
[2021-10-03] MEDS: Senna/Docusate Sodium 1 Tablet 2 TABLET PO (09:09)
[2021-10-03] MEDS: Metoprolol Tartrate 25 MG Tablet PO (09:09)
[2021-10-03] MEDS: busPIRone 5 MG Tablet 10 MG PO (09:09)
[2021-10-03] MEDS: Multivitamins,Ther W-Minerals Tablet 1 TABLET PO (09:10)
[2021-10-03] MEDS: APIXABAN 2.5 MG TABLET PO (09:10)
[2021-10-03] MEDS: Polyethylene Glycol 3350 17 GM PACKET PO (09:10)
--- NOTE | 2021-10-03 10:36 | CASEMGMT ---
Discharge Dining Car Hop [facility] requested updated pt/ot notes. Fax has been sent. Kayla Yee Discharge Dining Car Hop
--- NOTE | 2021-10-03 11:12 | PCM.PN.ORT ---
Subjective Subjective Patient seen and examined she is doing well. No complaints denies fevers chills nausea vomiting shortness of breath or chest pain. She is not having any significant pain with ambulation. However she is fatigued and weak. After evaluation by physical therapy recommendation is for her to be have placement prior to returning home as she does live alone is of advanced age and is weak and fatigued. Objective Data Objective Data Vital Signs: Vital Signs Temp Pulse Resp BP Pulse Ox 97.9 F 94 18 115/51 L 94 10/03/21 09:00 10/03/21 09:09 10/03/21 09:00 10/03/21 09:09 10/03/21 09:48 Oxygen Flow Rate (L/min) 2 Oxygen Delivery Method Room Air Weight: 152 lb 5.431 oz Body Mass Index (BMI) 27.8 Intake & Output: Intake and Output for Last 24 Hours 10/01/21 10/02/21 10/03/21 23:59 23:59 23:59 Intake Total 5229.17 / 5229.17 515.25 / 635.25 320 / 320 Output Total 1000 / 1225 975 / 1175 550 / 550 Balance 4229.17 / 4004.17 -459.75 / -539.75 -230 / -230 Lab / Micro Data Result Diagrams: 10/03/21 04:01 10/01/21 05:41 Labs: Laboratory Results - last 24 hr 10/03/21 04:01: WBC 8.9, RBC 3.26 L, Hgb 10.0 L, Hct 30.4 L, MCV 93.3, MCH 30.7, MCHC 32.9 D, RDW Std Deviation 46.6 H, RDW Coeff of Edmund 13.5, Plt Count 192, MPV 10.4 Micro: Microbiology 09/17/21 14:55 Swab (Method) Nasal Screen MRSA/MSSA - Final Physical Exam Const alert, oriented x3 and no apparent distress General Appearance: cooperative Extremity Extremity Narrative: Left hip dressing with some bloody drainage but remained sealed compartments soft neurovascular intact Assessment & Plan Assessment/Plan (1) S/P total hip arthroplasty: QUALIFIERS: Laterality: left Qualified Code(s): Z96.642 - Presence of left artificial hip joint PLAN: Postop day #3 left total hip arthroplasty. Dressing should be changed today and incision should be cleaned daily with antibacterial soap and warm water and replaced with a dry dressing daily. She will be transferred to rehab facility once a bed is available. She should continue 2.5 mg of Eliquis twice daily for 3 weeks post operatively. PT OT weightbearing as tolerated with hip precautions as reviewed. She should follow-up in the office for 2 weeks for wound check and staple removal. If she is still in a rehab at 2 weeks she may have her sergei removed there and follow-up after discharge.
[2021-10-03] MEDS: oxyCODONE 5 MG Tablet PO (11:34)
[2021-10-03] MEDS: Ondansetron 4 MG/2 ML Vial IV (11:35)
[2021-10-03] MEDS: 0.9% Saline Lock 10 ML Syringe IV (11:35)
--- NOTE | 2021-10-03 13:37 | DS_ITS ---
DATE OF ADMISSION 09/30/21 DATE OF DISCHARGE 10/03/21 Providers Primary Care Physician: Dr. Gloria Morales MD Reason For Visit: LT TOTAL HIP/DR TO FAX RX Medications at Discharge Home Medications Metamucil Fiber Singles 1 packet PO BID 11/06/14 buspirone 10 mg PO BID 11/06/14 multivitamin with folic acid 1 tab PO DAILY 11/06/14 ydmxb-3j-jxc-epa-fish oil-D3 1 ea PO DAILY 11/06/14 docusate sodium 100 mg PO BID 05/02/19 glucos sul [id number]-bvz-noanh-C-Mn 1 ea PO BID 05/02/19 magnesium oxide 400 mg (241.3 mg magnesium) tablet 400 mg PO DAILY 05/05/19 calcium 250 mg PO DAILY 04/08/21 clobetasol 1 applic TOPICAL PRN PRN 04/08/21 elderberry fruit 200 mg PO DAILY 04/08/21 vitamin E 100 unit PO DAILY 04/08/21 acetaminophen 1,000 mg PO Q8 #100 tab 10/01/21 apixaban [Eliquis] 2.5 mg PO BID #42 tab 10/01/21 metoprolol tartrate 25 mg PO BID 10/01/21 oxycodone 2.5 - 10 mg PO Q4H PRN PRN 7 Days #60 tab 10/01/21 Hospital Course Summary of Care Provided Hospital Course: Patient with long-standing history of severe left hip DJD who is failed conservative treatment. Patient underwent left total hip arthroplasty day of admission. Patient did receive pre-and postoperative antibiotics which were discontinued within 23 hours postoperatively. Patient did receive spinal anesthesia and postoperatively her pain was controlled with both IV and p.o. pain medication. Patient did receive 2 g of tranexamic acid. Her hemoglobin and hematocrit were monitored postoperatively as well as her vital signs and she did not require any blood transfusion. She did however take a extended recovery to wake up and was in the PACU till late in the evening and was given Narcan which did wake her up but then require close monitoring in the stepdown unit. The following morning she was alert and oriented she did have a hospitalist consult. Dressing will be changed daily beginning postop day #3 before shower will be removed and replaced after. Pt was started on Eliquis 2.5 mg twice daily postop day #1 for which will continue for 3 weeks post hospital discharge . Patient was seen by physical therapy . patient will be discharged We will start outpatient physical as scheduled. will follow-up in the office in 2 weeks. No intrahospital complications. Patient was initially planning on going home however after seen by physical therapy and they did not recommend her returning home we set her up for long-term facility discharge. Meaningful Use Info Meaningful Use Diagnoses (Choose all that apply): None applicable Discharge Plan Admission Attending Provider: Domingo Stark Primary Care Provider: Gloria Morales Discharge Orders/Prescriptions Prescriptions: No Action magnesium oxide 400 mg (241.3 mg magnesium) tablet 400 mg PO DAILY RF: 0 Metamucil Fiber Singles 1 PACKET packet 1 packet PO BID RF: 0 multivitamin with folic acid 1 TABLET tablet 1 tab PO DAILY RF: 0 yttah-7k-cob-epa-fish oil-D3 1 EACH capsule 1 ea PO DAILY RF: 0 buspirone 10 MG tablet 10 mg PO BID RF: 0 glucos sul 9HPj-qxn-jhcny-C-Mn 1 EACH capsule 1 ea PO BID RF: 0 docusate sodium 100 MG capsule 100 mg PO BID RF: 0 clobetasol 0.05 % cream 1 applic TOPICAL PRN PRN (Reason: Skin Cleansing) RF: 0 calcium 250 mg Tablet 250 mg PO DAILY RF: 0 vitamin E 100 unit Tablet 100 unit PO DAILY RF: 0 elderberry fruit 200 mg Capsule 200 mg PO DAILY RF: 0 metoprolol tartrate 25 mg tablet 25 mg PO BID RF: 0 acetaminophen 500 mg Tablet 1,000 mg PO Q8 Qty: 100 RF: 0 Eliquis 2.5 mg Tablet 2.5 mg PO BID Qty: 42 RF: 0 oxycodone 5 mg Tablet 2.5 - 10 mg PO Q4H PRN PRN (Reason: Pain Score 4-10) 7 Days Qty: 60 RF: 0
--- NOTE | 2021-10-03 13:50 | CASEMGMT ---
Discharge Shanker Out Called Stacy at [facility]. She faxed over pt/ot notes this morning but, has not heard back from insurance. Still waiting on pre-cert. If obtained she will give us a call. Will follow up. Kayla Yee Discharge Shanker Out
[2021-10-03] MEDS: Menthol/Lanolin/Calamine/Znox 113 GM Tube 1 APPLIC TOPICAL ×2 (15:55→20:53)
--- NOTE | 2021-10-03 16:02 | CASEMGMT ---
Discharge Insulating Machine Operator Called Stacy at [facility]. Insurance called and it is going to review. Stacy does not work this weekend. Therefore we probably will not have an update till Wednesday. ROSALINO Pinzon notified. Kayla Yee Discharge Insulating Machine Operator
--- NOTE | 2021-10-03 16:12 | CASEMGMT ---
ROSALINO notified patient that her request for fdc is still under review with insurance and it is possible she could get denied. ROSALINO explained RN NATALY or ROSALINO can check in with her tomorrow to see how she is feeling. They can check with physician and therapy to see if she is okay for home. Otherwise she will wait in hospital until insurance gives their answer. Patient was going to check to see if someone could come stay with her for a little while if she would go home. ROSALINO told her someone will follow up with her tomorrow. Plan: Awaiting insurance authorization. However it did go on to further review which may mean insurance is going to deny patient. Therefore patient would have to go home on home health. ROSALINO/SARA INGRAM to follow up. Alberta JAMES
--- NOTE | 2021-10-03 16:27 | CASEMGMT ---
Discharge Business Operations Specialist Valerie from [facility] called. They obtained pre-cert. Called [facility] and Caron said patient can come. When we have a pick pulling machine tender time to please call C side nurse. Kayla Yee Discharge Business Operations Specialist
--- NOTE | 2021-10-03 16:40 | CASEMGMT ---
Patient was approved. SW notified patient and secretary board of commissioners. Plan: d/c to [facility] under skilled level of care on a convalescent stay. Staff to arrange transport. [place] JAMES
--- NOTE | 2021-10-03 17:02 | NURSING ---
Called [facility] to give report for pt to be d/c. Given another number to call for report. Called and went to voicemail. Message left to return call if report was desired.
--- NOTE | 2021-10-03 17:21 | NURSING ---
Report called to nurse Rodas for pt transfer to [facility].
== END 2021-10-03 23:58 | disposition skilled nursing facility (03) | DRG 470 ==
LOC: ACINP 08:57 → MS3 14:06 → PCU 10-01 07:31 → MS3 10-03 10:45
PROVIDERS: Anesthesiology; Admitting Provider Orthopaedic Surgery; PCP Internal Medicine; Referring Provider Orthopaedic Surgery; Visit Provider Orthopaedic Surgery
PROC: 8E0Y0CZ Robotic Assisted Procedure of Lower Extremity, Open Approach (ICD-10-PCS; CPT 27130; principal; 2021-09-30 10:30)
DX: M16.12 Unilateral primary osteoarthritis, left hip (principal); F41.8 Other specified anxiety disorders; N18.30 Chronic kidney disease, stage 3 unspecified; I95.81 Postprocedural hypotension; I12.9 Hypertensive chronic kidney disease with stage 1 through stage 4 chronic kidney disease, or unspecified chronic kidney disease; G25.81 Restless legs syndrome; M54.50 Low back pain, unspecified; T50.995A Adverse effect of other drugs, medicaments and biological substances, initial encounter; Z79.01 Long term (current) use of anticoagulants; Z79.82 Long term (current) use of aspirin; Z79.899 Other long term (current) drug therapy
CPT/HCPCS: 36415; 73502; 80048; 82962; 82985; 83735; 85025; 85027; 85610; 85730; 86850; 86900; 86901; 87081; 88305; 88311; 93005; 94762; 97110; 97116; 97162; 97166; 97530; 97535; 99251; C1776; J7120; A4216; G0463; J2310; J2405

== ENCOUNTER 2021-11-10 17:00 | Outpatient (RCR) | payer MEDICARE, SELFPAY ==
--- NOTE | 2021-10-07 13:37 | PCM.DC.SUM ---
Providers Primary Care Physician: Dr. Gloria Morales MD Reason For Visit: LT TOTAL HIP/DR TO FAX RX Medications at Discharge Home Medications Metamucil Fiber Singles 1 packet PO BID 11/06/14 buspirone 10 mg PO BID 11/06/14 multivitamin with folic acid 1 tab PO DAILY 11/06/14 tirkj-5f-duv-epa-fish oil-D3 1 ea PO DAILY 11/06/14 docusate sodium 100 mg PO BID 05/02/19 glucos sul 1DIk-fwu-byapo-C-Mn 1 ea PO BID 05/02/19 magnesium oxide 400 mg (241.3 mg magnesium) tablet 400 mg PO DAILY 05/05/19 calcium 250 mg PO DAILY 04/08/21 clobetasol 1 applic TOPICAL PRN PRN 04/08/21 elderberry fruit 200 mg PO DAILY 04/08/21 vitamin E 100 unit PO DAILY 04/08/21 acetaminophen 1,000 mg PO Q8 #100 tab 10/01/21 apixaban [Eliquis] 2.5 mg PO BID #42 tab 10/01/21 metoprolol tartrate 25 mg PO BID 10/01/21 oxycodone 2.5 - 10 mg PO Q4H PRN PRN 7 Days #60 tab 10/01/21 Hospital Course Summary of Care Provided Hospital Course: Patient with long-standing history of severe left hip DJD who is failed conservative treatment. Patient underwent left total hip arthroplasty day of admission. Patient did receive pre-and postoperative antibiotics which were discontinued within 23 hours postoperatively. Patient did receive spinal anesthesia and postoperatively her pain was controlled with both IV and p.o. pain medication. Patient did receive 2 g of tranexamic acid. Her hemoglobin and hematocrit were monitored postoperatively as well as her vital signs and she did not require any blood transfusion. She did however take a extended recovery to wake up and was in the PACU till late in the evening and was given Narcan which did wake her up but then require close monitoring in the stepdown unit. The following morning she was alert and oriented she did have a hospitalist consult. Dressing will be changed daily beginning postop day #3 before shower will be removed and replaced after. Pt was started on Eliquis 2.5 mg twice daily postop day #1 for which will continue for 3 weeks post hospital discharge . Patient was seen by physical therapy . patient will be discharged We will start outpatient physical as scheduled. will follow-up in the office in 2 weeks. No intrahospital complications. Patient was initially planning on going home however after seen by physical therapy and they did not recommend her returning home we set her up for usp facility discharge. Meaningful Use Info Meaningful Use Diagnoses (Choose all that apply): None applicable Discharge Plan Admission Attending Provider: Domingo Stark Primary Care Provider: Gloria Morales Discharge Orders/Prescriptions Prescriptions: No Action magnesium oxide 400 mg (241.3 mg magnesium) tablet 400 mg PO DAILY RF: 0 Metamucil Fiber Singles 1 PACKET packet 1 packet PO BID RF: 0 multivitamin with folic acid 1 TABLET tablet 1 tab PO DAILY RF: 0 odzaz-3s-gvs-epa-fish oil-D3 1 EACH capsule 1 ea PO DAILY RF: 0 buspirone 10 MG tablet 10 mg PO BID RF: 0 glucos sul 3HVv-bfw-xvpaz-C-Mn 1 EACH capsule 1 ea PO BID RF: 0 docusate sodium 100 MG capsule 100 mg PO BID RF: 0 clobetasol 0.05 % cream 1 applic TOPICAL PRN PRN (Reason: Skin Cleansing) RF: 0 calcium 250 mg Tablet 250 mg PO DAILY RF: 0 vitamin E 100 unit Tablet 100 unit PO DAILY RF: 0 elderberry fruit 200 mg Capsule 200 mg PO DAILY RF: 0 metoprolol tartrate 25 mg tablet 25 mg PO BID RF: 0 acetaminophen 500 mg Tablet 1,000 mg PO Q8 Qty: 100 RF: 0 Eliquis 2.5 mg Tablet 2.5 mg PO BID Qty: 42 RF: 0 oxycodone 5 mg Tablet 2.5 - 10 mg PO Q4H PRN PRN (Reason: Pain Score 4-10) 7 Days Qty: 60 RF: 0
--- NOTE | 2021-10-08 11:58 | HP.PTEVAL ---
Patient's Visit Information KEYONA GARCIA is a 76 year old F referred to Physical Therapy by Dr. Domingo Stark DO with a diagnosis of Left THR- Posterior Approach 09/30/2021. Date of Evaluation: 10/08/21 Physical Therapist: Caron Alvarez DPT - Visit Plan Frequency: 3x /Week Duration: 4 Weeks Plan: Left THR 09/30/2021- focus on functional mobility-Posterior Approach. HEP Given IE: Kitchen Sink: weight shift, HR/TR, marching, hip abduction and mini squats - Subjective Left Total Hip Replacement by Dr. Davis 09/30/2021 at [facility]. She stayed a few days due to weakness and then transferred to [facility] for 3 days- then decided to go home. She has an [employer] CONSULTANT who is living with her for now- she is planning to stay until she is cleared to live alone safely. She lives I and was fully I with all ADL's and driving. Goals: to get back all her normal ADL's. She lives in a single story with grab bars- she had her right hip replaced in Apr 2019. So she has all the equipment needed. She has no pain currently- when the oxy wears off its achy pain. 5-6/10 but controlled with medication. She is not using ice. She has no radiating pain- No N/T in her LE. Sleep: recliner at this point due to being able to get up/down easier. Prior to her hip pain she was not using a walker or cane. She is normally very active- she does not do exercise on a daily basis. The hospital sent her home with exercises that she doing on a daily basis. PMHx/Meds: no changes since surgery. - Objective Posture: FH, RS- can correct but does not maintain. Gait: step to pattern with rollater- decreased stance on left LE with decreased delia. HR/TR: able with UE A. SLS: weight shift but unable to SLS. Palpation: not tender. Observation: sergei intact- no s/s of infection. ROM: Hip flexion: 90 degrees due to precautions extn: 10 degrees, abd: 50 degrees, IR/ER: neutral. Strength: Core: fair, Hip: flexion: 6.6 extension: 4.0, Knee: 4+/5, Ankle: 5/5. WOMAC: 70.83 - Balance/Special Test Scores Lower Extremity Functional Score: 0 - Goals Goal 1:: Patient will be I with HEP and progression Goal Time Frame: 4-6 Weeks Goal 2:: Patient will ambulate >300 feet with a normalized gait pattern and LRD Goal Time Frame: 4-6 Weeks Goal 3:: Patient will asc/desc 8 stairs recip with 1 HR Goal Time Frame: 4-6 Weeks Goal 4:: Patient will improve her TUG score under 10 seconds with LRD Goal Time Frame: 4-6 Weeks Goal 5:: Patient will perform 5 sit to stands with no UE A Goal Time Frame: 4-6 Weeks - Rehabilitation Potential Physical Therapy Diagnosis: Patient presents s/p left THR 09/30/2021- she has hypomobility- including decreased LE and core strength/stabilization, ROM (per protocol), flex and muscular endurance leading to abnormal gait and decreased ability to perform ADL's Rehabilitation Potential: Good - Anticipated Interventions Patient/Client Instruction: Educate patient on: Benefits of Fitness Program Therapeutic Exercise to Include: Strength training, Endurance training, Balance training, Coordination, Agility training, Body mechanics, Postural training, Flexibilty training, Gait and locomotor training, Neuromotor development, Dynamic Lumbar Stabilization, Scapular Strength/Stabilization For the Purpose of:: To improve muscle performance and motor function TENS: Yes Cryotherapy (ice pack, ice massage): Yes Thermo therapy (hot pack): Yes Ultrasound (thermal/non thermal): No Thank you for the opportunity to evaluate your patient. For Medicare and Medicare HMO plans, please review the plan of care and approve it. It will need to be FAXED BACK to us at [phone] for Medicare purposes. For Medicare only, by signing this I certify the plan of care. Please let me know if there are questions or concerns regarding this plan of care. Physician Signature: Date:
--- NOTE | 2021-11-10 17:29 | HP.PTDCSUM ---
It has been my pleasure to treat KEYONA GARCIA referred by Dr. Domingo Stark DO, with the diagnosis of Left THR- Posterior Approach 09/30/2021 for a total of 10 visit(s). Discharge Date: Please see the following information for a summary of their discharge status. Subjective: Patient reports that she saw the MD today who is very happy with her progress. She has no pain the hip and is 90% better. She has a bad left knee and she still has to be careful of bending forwards. Goes back to the MD in 6 weeks. Sometimes she will use a walker if she is tired. But she uses a cane or nothing half and half. She feels more comfortable on carpet in her home instead of the hard floors. L hip Pain Intensity (Out of 10): 0 % Improvement: 90 Objective/Function: Posture: FH, RS- can correct but does not maintain. Gait: good with rollator and straight cane HR/TR: able with UE A. SLS: weight shift but unable to SLS. Palpation: not tender. Observation: no s/s of infection ROM: Hip flexion: 90 degrees due to precautions extn: 10 degrees, abd: 50 degrees, IR/ER: neutral. Strength: Core: fair, plus Hip: flexion: 25 extension: 15, Knee: 4+/5, Ankle: 5/5. Stairs: asc/desc 8 recip with 2 HR WOMAC: 70.83 Goal 1:: Patient will be I with HEP and progression Goal Progress: Goal Met Goal 2:: Patient will ambulate >300 feet with a normalized gait pattern and LRD Goal Progress: Goal Met Goal 3:: Patient will asc/desc 8 stairs recip with 1 HR Goal Progress: Goal Met Goal 4:: Patient will improve her TUG score under 10 seconds with LRD Goal Progress: Progressing Goal 5:: Patient will perform 5 sit to stands with no UE A Goal Progress: Goal Met Plan: 11/10/21: Plans to do silver sneakers and fells I with gym membership is where she wants to continue, dc from PT. Encouraged to call if questions or concerns. pt is going to look into [employer] gym membership. Left THR 09/30/2021- focus on. functional mobility-Posterior Approach If there are questions or concerns regarding this patient's physical therapy, please feel free to call me at [phone]. Thank you for the referral of this patient. Sincerely, Caron Alvarez, AMANDOT Balance/Gait/Functional tests - Balance/Special Test Scores Lower Extremity Functional Score: 0 TUG Test Time Seconds: 12 Tug Test: <20 sec.=mostly independent WOMAC Total Score: 17 WOMAC Percentage: 82.3000
== END 2021-11-10 19:00 | disposition home or self-care (01) ==
LOC: PT 17:00
PROVIDERS: PCP Internal Medicine; Referring Provider Orthopaedic Surgery; Visit Provider Orthopaedic Surgery
DX: Z98.890 Other specified postprocedural states (principal); Z96.642 Presence of left artificial hip joint
CPT/HCPCS: 97110; 97162; 97164

== ENCOUNTER → 2022-02-23 | Outpatient (CLI) | payer MEDICARE, SELFPAY ==
--- NOTE | 2022-02-23 14:10 | RAD_ITS ---
STUDY: XR Knee 1 or 2 Views 02/23/2022 5:19 PM REASON FOR EXAM: Female, 76 years old. LEFT KNEE OA TECHNIQUE: XR Knee 1 or 2 Views LEFT COMPARISON: 08/07/2019 FINDINGS: Normal visualized distal femur. Normal visualized proximal tibia and fibula. Normal proximal tibiofibular articulation. Normal medial femorotibial compartment. There is mild degenerative arthrosis of the lateral femorotibial compartment. There is mild degenerative arthrosis of the patellofemoral articulation. The soft tissue structures are unremarkable. RAD/Knee 1 or 2 Views IMPRESSION: Degenerative arthrosis. Electronically Signed: Hieu Drew MD at 17:20 EDT ,
== END | disposition home or self-care (01) ==
LOC: RAD 14:05
PROVIDERS: PCP Internal Medicine; Visit Provider Anesthesiology Pain Medicine
DX: M17.12 Unilateral primary osteoarthritis, left knee (principal)
CPT/HCPCS: 73560

== ENCOUNTER 2022-10-01 12:00 | Outpatient (RCR) | payer MEDICARE, SELFPAY ==
--- NOTE | 2022-10-01 12:43 | HP.PTDCSUM ---
It has been my pleasure to treat KEYONA GARCIA referred by Dr. Gloria Morales MD, with the diagnosis of Balance problems, vertigo for a total of 6 visit(s). Discharge Date: 10/01/22 Please see the following information for a summary of their discharge status. Subjective: Did exercises well for a week, then had a time when stretching psoas made her unable to stand up tall and hurt. She stopped ex for a few days and got back tot hem this week without a problem minus the stretch and the chair squats. Was getting better prior to that incident. Balance was 60% better. Traumatized LBP Pain Intensity (Out of 10): 4 % Improvement: 60 Objective/Function: FGA is +3. DHI 10 point improvement. Walks well without AD in therapy room and steps reciprocal with one rail, R hip still slightly weaker but functional. Overall doing well and needs to be consistent with ex which she thinks she can do but she questions her motivation Goal 1:: I approp gym based LE strength, balance and VOR ex to manage problem Goal Progress: Goal Met Goal 2:: FGA score 24/30 Goal Progress: Goal Met Goal 3:: Pt feel 50% better in overall balane and movement Goal Progress: 60 Plan: d/c to HEP If there are questions or concerns regarding this patient's physical therapy, please feel free to call me at [phone]. Thank you for the referral of this patient. Sincerely, Elfego Frost, DPT, OCS, CSCS Balance/Gait/Functional tests - Balance/Special Test Scores Functional Gait Assessment Score: 24 % Disability: 20.0000 Dizziness Score: 24
== END 2022-10-01 14:01 | disposition home or self-care (01) ==
LOC: PT 12:00
PROVIDERS: PCP Internal Medicine; Referring Provider Internal Medicine; Visit Provider Internal Medicine
DX: R42 Dizziness and giddiness (principal); R26.89 Other abnormalities of gait and mobility
CPT/HCPCS: 97110; 97162; 97164

== ENCOUNTER 2022-10-26 15:52 | Observation (INO) | payer MEDICARE, SELFPAY ==
[2022-10-26 15:54] VITALS: BP 121/74; PULSE 70; RESP 14; TEMP 37.2; O2SAT 98
[2022-10-26 16:03] VITALS: BMI 29.2
[2022-10-26 16:44] LABS: Absolute Lymphocyte Count 1.58 X10^3/uL (0.83-4.51); Basophil# 0.05 X10^3/uL; Basophil% 0.7 % (0-1); Eosinophil# 0.21 X10^3/uL; Eosinophils% 2.8 % (0-5); Hematocrit 36.7 % (37-47); Hemoglobin 12.6 g/dL (12.0-15.0); Lymphocyte # 1.58 X10^3/ul (0.83-4.51); Lymphocyte % 20.9 % (19-41); Mean Corp Hgb Conc 34.3 g/dL (32-36); Mean Corpuscular Hgb 31.3 pg (27.0-32.0); Mean Corpuscular Volume 91.3 fL (81-99); Mean Platelet Vol. 10.5 fl (6.2-12.0); Monocyte# 0.73 X10^3/uL; Monocyte% 9.7 % (0-10); NRBC Flagged by Analyzer 0 % (0-5); Neutrophil # 4.96 X10^3/uL (2.7-7.7); Neutrophil % 65.6 % (47-70); Platelet Count 208 K/mm3 (150-450); RBC Distribution Width CV 13.5 % (11.6-14.6); RBC Distribution Width SD 45.9 fl (35.1-43.9); Red Blood Count 4.02 M/mm3 (4.2-5.4); White Blood Count 7.6 K/mm3 (4.4-11.0)
[2022-10-26 16:57] LABS: Anion Gap 5 (5-15); BUN 26 mg/dL (7-18); BUN/Creat Ratio 22.6 RATIO (10-20); Calcium,Total 9.2 mg/dL (8.5-10.1); Chloride 106 mmol/L (98-107); Creatinine, Serum 1.15 mg/dL (0.55-1.02); EST Glomerular Filtration Rate 49 mL/min (>60); Est Glom Filt Rate - Afr Amer 59 mL/min (>60); Estimated Creatinine Clearance 31.89 ml/min; Glucose 97 mg/dL (74-106); Potassium 3.8 mmol/L (3.5-5.1); Sodium Level 138 mmol/L (136-145)
--- NOTE | 2022-10-26 17:57 | HP.PCM_ITS ---
HPI - General General Date of Admission: 10/26/22 Date of Service: 10/26/22 Chief Complaint: Lumbar back pain, abnormal MRI. HPI Narrative The patient is a 75 y/o F w/ PMHx: Anxiety and Depression, Chronic OA, Chronic back pain, RLS, HTN, Hx 04/22/21 laminectomy decompression L2-L5 per Dr. Nassar, Hx of ongoing L hip pain and debility following with Dr. Stark with ~ 1 year of ongoing persistent lower lumbar back pain, constant, described as dull aching rated 8 out of 10 on a constant basis although does mildly increased with exertion or activities with no specific pain with palpation of the region which was reported during a visit with referral to Dr. Soria as patient had seen Dr. Nassar prior and he was not readily available at that time with outpatient MRI lumbar spine performed and apparently resulted on day of presentation with L4-[address] Soria to refer the patient to the ED for evaluation and formal consultation with Dr. Nassar. Patient denies any fevers, chills, night sweats, weight loss. Attempts were made to obtain the CT of the MRI of the spine outpatient however this will not be available until 10/27/2022 with patient intention to obtain disc at that time which may be uploaded as patient very r eticent to have repeat MRI until this 1 is evaluated by the surgeon to avoid additional costs if not necessary. Patient has been able to ambulate and denies any specific paresthesias increasing to lower extremities or focal weakness or urinary incontinence. She has been using a cane to walk. Work-up in the ED included T99, heart rate 70, BP 121/74, respiratory rate 14, 90% room air, CBC with WC 7.6, hemoglobin 12.6, platelet 2 8 without marked shift, BMP with BUN/creatinine 26/1.15 otherwise unremarkable, blood culture x2 pending per ED. In the ED patient ministered IV vancomycin and Rocephin therapy. [facility] Medical History Abnormal EKG Anxiety Arthritis Back pain Cardiology follow-up encounter Degenerative joint disease of left hip Edema History of echocardiogram History of stress test Hoarseness Leg cramps Neuropathy Non-smoker Polyarthritis Preop cardiovascular exam Restless leg syndrome Shortness of breath Spinal stenosis Vitamin D deficiency Walker as ambulation aid Wears glasses Home Medications buspirone 10 mg tablet 10 mg PO BID anxiety 11/06/14 [History Last Taken 10/26/22] multivitamin with folic acid 400 mcg tablet 1 tab PO DAILY supplement 11/06/14 [History Last Taken 10/25/22] omega-3s 360 qz-gjk-skn-fish oil 1,200 mg-D3 1,000 unit capsule 1 ea PO DAILY supplement 11/06/14 [History Last Taken 10/25/22] psyllium husk (aspartame) 3.4 gram oral powder packet (Metamucil Fiber Singles) 1 packet PO BID supplement 11/06/14 [History Last Taken 10/26/22] docusate sodium 100 mg capsule 100 mg PO BID constipation 05/02/19 [History Last Taken 10/25/22] glucosamine sulf dipot chlr,msm,chond 550 mg-C 30 mg-venkat 1 mg capsule 1 ea PO BID supplement 05/02/19 [History Last Taken 10/25/22] magnesium oxide 400 mg (241.3 mg magnesium) tablet 400 mg PO DAILY supplement 05/05/19 [History Last Taken 10/25/22] calcium 250 mg tablet 250 mg PO DAILY SUPPLEMENT 04/08/21 [History Last Taken 10/25/22] elderberry fruit 200 mg capsule 200 mg PO DAILY SUPPLEMENT 04/08/21 [History Last Taken 10/25/22] vitamin E 100 unit tablet 100 unit PO DAILY SUPPLEMENT 04/08/21 [History Last Taken 10/25/22] metoprolol tartrate 25 mg tablet 25 mg PO BID bp 10/01/21 [History Last Taken 10/26/22] ropinirole 0.25 mg tablet 0.25 mg PO QHS 11/10/21 [History Last Taken 10/25/22] trazodone 50 mg tablet 50 mg PO QHS PRN Sleep 10/26/22 [History Last Taken 10/25/22] Allergy/AdvReac Type Severity Reaction Status Date / Time citalopram AdvReac ANXIETY Verified 10/26/22 15:54 fluoxetine AdvReac ANXIETY Verified 10/26/22 15:54 sertraline AdvReac ANXIETY Verified 10/26/22 15:54 venlafaxine HCl AdvReac ANXIETY Verified 10/26/22 15:54 [From Effexor] Family History (Updated 10/26/22 @ 19:[address] Lela Brennan MD) Father Heart disease Mother Dementia Surgical History History of back surgery History of bilateral cataract extraction History of cardiac catheterization History of hip replacement, total History of tonsillectomy History of total hip replacement History of total right knee replacement Social History household members: none [facility] Smoking Status: Never smoker alcohol intake: never substance use type: does not use caffeine: Yes Type: carbonated beverages Number of servings: 1 and tea Number of servings: 1 ROS ROS Narrative Admission Review of Systems: CONSTITUTIONAL: No weight loss, fever, chills, + weakness or fatigue. HEENT: Eyes: No visual loss, blurred vision, double vision or yellow sclerae. Ears, Nose, Throat: No hearing loss, sneezing, congestion, runny nose or sore throat. SKIN: No rash or itching, lesions, wounds. CARDIOVASCULAR: No chest pain, chest pressure or chest discomfort, palpitations, edema, orthopnea, syncopal events. RESPIRATORY: No shortness of breath, cough or sputum, wheezing, hemoptysis. GASTROINTESTINAL: No anorexia, nausea, vomiting or diarrhea, abdominal pain, me kendra, BRBPR. GENITOURINARY: No dysuria, frequency, urgency or retention. NEUROLOGICAL: No headache, dizziness, syncope, paralysis, ataxia, numbness or tingling in the extremities, focal weakness, change in bowel or bladder control, seizure. MUSCULOSKELETAL: + muscle, back pain, joint pain or stiffness. HEMATOLOGIC: No anemia, bleeding or bruising. LYMPHATICS: No enlarged nodes. No history of splenectomy. PSYCHIATRIC: + history of depression or anxiety. ENDOCRINOLOGIC: No reports of sweating, cold or heat intolerance. No polyuria or polydipsia. ALLERGIES: No history of asthma, hives, eczema or rhinitis. Vital Signs Vital Signs Vital Signs: 10/26/22 15:54 Temperature 99 F Temperature Source Temporal Pulse Rate 70 Respiratory Rate 14 Blood Pressure 121/74 H Blood Pressure Mean 89 Pulse Ox 98 Oxygen Delivery Method Room Air Weight Weight: 159 lb 9.835 oz Body Mass Index (BMI) 29.2 Physical Exam Narrative Physical Examination: General: Awake, alert, oriented x 3 and cooperative, seated upright in the ED bed in no apparent distress. Skin: Normal color, normal turgor, no icterus, no cyanosis except for mild stasis skin changes to bilateral lower extremity. HEENT: AT/NC, EOMI, PERRLA, MMM, no carotid bruits or JVD noted. Lungs: CTA bilaterally, moderate effort, mild decrease BL bases, no rales, ronchi or wheezing. Heart: Currently regular rate and rhythm; no gallop, rub audible. Abdomen: Soft, NTTP, ND, normal BS, no HSM. Extremities: No cyanosis, no clubbing, bilateral lower extremity peripheral edema not markedly pitting, right greater than left which has been since her hip surgery per report. Neurological: Patient awake, alert, oriented as noted, cognitive function intact; pupils equally reactive to light and accommodation, cranial nerves II- XII grossly normal, moving all 4 extremities although notably limited given chronic left hip pain, no specific focal deficits, strength moderately to severely global decreased, no specific focal tenderness along the spine. Psychiatric: Affect appears fatigued otherwise normal, no acute evidence of depressive or anxiety feelings. Results Lab / Micro Data Result Diagrams: 10/26/22 16:20 10/26/22 16:20 Labs: Laboratory Results - last 24 hr 10/26/22 16:20: WBC 7.6, RBC 4.02 L, Hgb 12.6, Hct 36.7 L, MCV 91.3, MCH 31.3, MCHC 34.3, RDW Std Deviation 45.9 H, RDW Coeff of Edmund 13.5, Plt Count 208, MPV 10.5, Immature Gran % (Auto) 0.300, Neut % (Auto) 65.6, Lymph % (Auto) 20.9, [place] % (Auto) 9.7, Eos % (Auto) 2.8, Baso % (Auto) 0.7, Absolute Neuts (auto) 5.0, Absolute Lymphs (auto) 1.58, Nucleated RBC % 0 10/26/22 16:20: Sodium 138, Potassium 3.8, Chloride 106, Carbon Dioxide 27.0, Anion Gap 5, BUN 26 H, Creatinine 1.15 H, Estim Creat Clear Calc 31.89, Est GFR (MDRD) Af Amer 59 L, Est GFR (MDRD) Non-Af 49 L, BUN/Creatinine Ratio 22.6 H, Glucose 97, Calcium 9.2 Assessment & Plan Assessment/Plan (1) Discitis: PLAN: Plan The patient is a 75 y/o F w/ PMHx: Anxiety and Depression, Chronic OA, Chronic back pain, RLS, HTN, Hx 04/22/21 laminectomy decompression L2-L5 per Dr. Nassar, Hx of ongoing L hip pain and debility following with Dr. Stark with ~ 1 year of ongoing persistent lower lumbar back pain, constant, described as dull aching rated 8 out of 10 on a constant basis although does mildly increased with exe rtion or activities with no specific pain with palpation of the region which was reported during a visit with referral to Dr. Soria as patient had seen Dr. Nassar prior and he was not readily available at that time with outpatient MRI lumbar spine performed and apparently resulted on day of presentation with L4-[address] Soria to refer the patient to the ED for evaluation and formal consultation with Dr. Nassar. #1. Ongoing persistent lumbar back pain with concern for L4-5 discitis: We will admit to medical surgical floor, will continue IV vancomycin and Rocephin given unclear organism, will request ESR as well as CRP, will request Dr. Nassar continued consultation which was initiated per ED, requested CT scan of the MRI performed outpatient and per patient very specific request would like this to be uploaded and Dr. Nassar to evaluate it prior to consideration of repeating an MRI to avoid high cost per patient preference, will also request involvement of infectious disease, will have as needed pain regimen however given creatinine clearance we will avoid NSAID therapy which patient has been taking outpatient, will have low-dose gabapentin and will have as needed low-dose narcotics although she has been reticent to utilize. We will maintain on fall precautions and will request PT/OT as well as case management consultation for discharge planning. #2. Chronic left hip pain: Following outpatient with Dr. Stark orthopedic surgery, maintain on fall precautions, utilizes cane, PT/OT as well as case management consultation for discharge planning. #3. Hypertension: Continue home regimen including metoprolol, PRN hydralazine. #4. Anxiety and depression: Per current list patient is only utilizing buspirone which will be continued in addition to low-dose trazodone, encourage continued outpatient follow-up and counseling as needed. #5. Restless leg syndrome: We will continue patient home nightly Requip regimen. #6. DVT prophylaxis: Lovenox. #7. CODE status: Patient TYSON is Ramirez her son and living will is currently in place. Discussed CODE status at length including difference between FULL code, DNR-CCA and DNR-CC status. Following discussions about the differences in these status, requested Full Code status. Admission Evaluation Time spent evaluating chart, patient history, patient evaluation, care planning and discussion with specialists: 75 minutes. Charges/Coding Visit Charges Inpatient E&M: 13053 Init Hosp L3
--- NOTE | 2022-10-26 18:04 | NURSING ---
MED SURG WHITE L4, L5 DISCITIS
--- NOTE | 2022-10-26 18:33 | ED.VIS.BACK ---
HPI History of Present Illness Chief Complaint: Back Narrative Narrative: 77-year-old female with chronic back pain. She states previously Dr. Nassar had done surgery on her back. She states that she is been the pain management injections did not help. She states she was referred to Dr. Soria recently. He did see her and obtained an MRI which shows an L4-L5 discitis. Patient was sent to the ER by Dr. Soria. It was recommended that she get admitted and IV antibiotics. He recommended that I consult Dr. Nassar because she was previously his patient. Patient has not had any fevers, chills, sweats. Her pain has not changed significantly. No loss of bladder or bowel control or saddle anesthesia paresthesia. Nuys any new trauma. [facility] Medical History Abnormal EKG Anxiety Arthritis Back pain Cardiology follow-up encounter Degenerative joint disease of left hip Edema History of echocardiogram History of stress test Hoarseness Leg cramps Neuropathy Non-smoker Polyarthritis Preop cardiovascular exam Restless leg syndrome Shortness of breath Spinal stenosis Vitamin D deficiency Walker as ambulation aid Wears glasses Home Medications buspirone 10 mg tablet 10 mg PO BID anxiety 11/06/14 [History Last Taken 10/26/22] multivitamin with folic acid 400 mcg tablet 1 tab PO DAILY supplement 11/06/14 [History Last Taken 10/25/22] omega-3s 360 el-hff-qoa-fish oil 1,200 mg-D3 1,000 unit capsule 1 ea PO DAILY supplement 11/06/14 [History Last Taken 10/25/22] psyllium husk (aspartame) 3.4 gram oral powder packet (Metamucil Fiber Singles) 1 packet PO BID supplement 11/06/14 [History Last Taken 10/26/22] docusate sodium 100 mg capsule 100 mg PO BID constipation 05/02/19 [History Last Taken 10/25/22] glucosamine sulf dipot chlr,msm,chond 550 mg-C 30 mg-venkat 1 mg capsule 1 ea PO BID supplement 05/02/19 [History Last Taken 10/25/22] magnesium oxide 400 mg (241.3 mg magnesium) tablet 400 mg PO DAILY supplement 05/05/19 [History Last Taken 10/25/22] calcium 250 mg tablet 250 mg PO DAILY SUPPLEMENT 04/08/21 [History Last Taken 10/25/22] elderberry fruit 200 mg capsule 200 mg PO DAILY SUPPLEMENT 04/08/21 [History Last Taken 10/25/22] vitamin E 100 unit tablet 100 unit PO DAILY SUPPLEMENT 04/08/21 [History Last Taken 10/25/22] metoprolol tartrate 25 mg tablet 25 mg PO BID bp 10/01/21 [History Last Taken 10/26/22] ropinirole 0.25 mg tablet 0.25 mg PO QHS 11/10/21 [History Last Taken 10/25/22] trazodone 50 mg tablet 50 mg PO QHS PRN Sleep 10/26/22 [History Last Taken 10/25/22] Allergy/AdvReac Type Severity Reaction Status Date / Time citalopram AdvReac ANXIETY Verified 10/26/22 15:54 fluoxetine AdvReac ANXIETY Verified 10/26/22 15:54 sertraline AdvReac ANXIETY Verified 10/26/22 15:54 venlafaxine HCl AdvReac ANXIETY Verified 10/26/22 15:54 [From Effexor] Family History Father Heart disease Surgical History History of back surgery History of bilateral cataract extraction History of cardiac catheterization History of hip replacement, total History of tonsillectomy History of total hip replacement History of total right knee replacement Social History household members: none Smoking Status: Never smoker alcohol intake: never substance use type: does not use caffeine: Yes Type: carbonated beverages Number of servings: 1 and tea Number of servings: 1 ROS ROS ED Review of Systems ROS Unobtainable: Denies due to encephalopathy Constitutional Constitutional ED: Denies chills, fever(s) or sweats Eyes Eyes: Denies change in vision or diplopia ENT ENT ED: Denies rhinorrhea or sore throat Cardiovascular Cardiovascular: Denies chest pain or palpitations Respiratory/Chest Respiratory/Chest: Denies dyspnea or dyspnea on exertion Gastrointestinal Gastrointestinal: Denies abdominal pain, nausea or vomiting Genitourinary Genitourinary ED: Denies dysuria or hematuria Musculoskeletal Musculoskeletal: Reports back pain Integumentary Denies abscess or Abrasions Neurologic Neurologic: Denies headache(s) or paresthesias Psychiatric Psychiatric: Denies anxiety or depression EXAM Physical Exam Const Vital Signs: 10/26/22 15:54 10/26/22 18:36 Temperature 99 F 97.4 F L Temperature Source Temporal Temporal Pulse Rate 70 77 Respiratory Rate 14 16 Blood Pressure 121/74 H 124/74 H Blood Pressure Mean 89 90 Pulse Ox 98 98 Oxygen Delivery Method Room Air Room Air Positive well nourished and obese Nutritional Appearance: obese Eyes PERRL and EOMs intact bilaterally Resp normal respiratory effort and clear to auscultation bilaterally Cardio regular rate and regular rhythm Back/Spine Back/Spine Narrative: Well-healing midline lumbar surgical scar. No fluctuance. Minimal tenderness Extremity normal to inspection General Extremety ED: Negative for edema or tenderness General Extremity: Negative for edema Neuro oriented x3 Sensorium / Orientation: alert Motor Exam: strength 5/5 throughout Psych mental status grossly normal Skin no rashes or lesions noted MDM MDM MDM Narrative Medical decision making narrative: Patient presenting with reported history of MRI which showed discitis L L4-L5. Patient states her pain is not any worse than usual. I spoke with Dr. Soria. He states that since Dr. Nassar did the patient's previous surgery the patient should be admitted and he should be consulted on this. Patient does not have the MRI. She is trying to have her friend to go and get a copy of this on a disc. I then spoke with Dr. Nassar who is comfortable being consulted. He recommended [facility]. Discussed with the hospitalist. We started vancomycin and Rocephin in the ED. Patient admitted in stable condition. Impression: 1. L4/L5 discitis Lab Data Labs: Laboratory Results - last 24 hr 10/26/22 10/26/22 16:20 16:20 WBC 7.6 RBC 4.02 L Hgb 12.6 Hct 36.7 L MCV 91.3 MCH 31.3 MCHC 34.3 RDW Std Deviation 45.9 H RDW Coeff of Edmund 13.5 Plt Count 208 MPV 10.5 Immature Gran % (Auto) 0.300 Neut % (Auto) 65.6 Lymph % (Auto) 20.9 [place] % (Auto) 9.7 Eos % (Auto) 2.8 Baso % (Auto) 0.7 Absolute Neuts (auto) 5.0 Absolute Lymphs (auto) 1.58 Nucleated RBC % 0 Sodium 138 Potassium 3.8 Chloride 106 Carbon Dioxide 27.0 Anion Gap 5 BUN 26 H Creatinine 1.15 H Estim Creat Clear Calc 31.89 Est GFR (MDRD) Af Amer 59 L Est GFR (MDRD) Non-Af 49 L BUN/Creatinine Ratio 22.6 H Glucose 97 Calcium 9.2 Discharge Plan Disposition Disposition: Acute Care Hospital [facility] Discharge Date/Time: 10/26/22 18:43
[2022-10-26 18:36] VITALS: BP 124/74; PULSE 77; RESP 16; TEMP 36.3; O2SAT 98
[2022-10-26 18:59] VITALS: BMI 23.3
[2022-10-26 19:14] VITALS: BP 106/56; PULSE 76; RESP 14; TEMP 36.6; O2SAT 97
[2022-10-26] MEDS: Vancomycin IV 1,000 MG/200 ML BAG 200 MG IV (19:24)
[2022-10-26 19:58] LABS: Erythrocyte Sedimentation Rate 9 mm/hr (0-30)
[2022-10-26 20:26] LABS: CRP < 2.90 mg/L (0.0-3.0)
--- NOTE | 2022-10-26 21:03 | PCM.RX.CS ---
Consult Pharmacy has been consulted to manage selected antiobiotic: Vancomycin Type of Consult: New start Prior Doses of Antibiotics Received/Current Regimen: Received 1gm iv in ER. Labs: Sodium 138 mmol/L (136-145) 10/26/22 16:20 Potassium 3.8 mmol/L (3.5-5.1) 10/26/22 16:20 Chloride 106 mmol/L (98-107) 10/26/22 16:20 Carbon Dioxide 27.0 mmol/L (21.0-32.0) 10/26/22 16:20 Anion Gap 5 (5-15) 10/26/22 16:20 BUN 26 mg/dL (7-18) H 10/26/22 16:20 Creatinine 1.15 mg/dL (0.55-1.02) H 10/26/22 16:20 Est GFR (MDRD) Af Amer 59 mL/min (>60) L 10/26/22 16:20 Est GFR (MDRD) Non-Af 49 mL/min (>60) L 10/26/22 16:20 BUN/Creatinine Ratio 22.6 RATIO (10-20) H 10/26/22 16:20 Glucose 97 mg/dL (74-106) 10/26/22 16:20 Weight used for dosin.8 kg Estimated Creatinine Clearance: 32 ml/min Goal Trough: 15-20 mcg/mL Pharmacy Plan for Drug Dosing: Will begin 750mg iv q24h per policy. Trough level ordered for before 3rd total dose. Pharmacy Service will continue to monitor and adjust dosing as required. Follow-Up Labs: Trough Vancomycin - 4.5.23 @1830 before 1900 dose
[2022-10-26] MEDS: 0.9% Saline Lock 10 ML Syringe IV (21:17)
[2022-10-26] MEDS: 0.9% Normal Saline 1,000 ML 100 ML IV (21:17)
[2022-10-26 21:56] VITALS: BP 105/49; PULSE 63; RESP 16; TEMP 36.3; O2SAT 96
[2022-10-26] MEDS: Psyllium 1 PACKET PO (22:00)
[2022-10-26] MEDS: Docusate Sodium 100 MG Capsule PO (22:00)
[2022-10-26 22:01] VITALS: BP 105/49; PULSE 63
[2022-10-26] MEDS: busPIRone 5 MG Tablet 10 MG PO (22:01)
[2022-10-26] MEDS: Pramipexole Di-HCl 0.125 MG Tablet PO (22:01)
[2022-10-26 22:13] LABS: Procalcitonin < 0.01 ng/mL (0.00-0.09)
[2022-10-26 23:30] VITALS: O2SAT 94
[2022-10-27] VITALS (8 sets, daily range): BP systolic 108–166; BP diastolic 54–68; PULSE 61–69; RESP 14–17; TEMP 36.1–36.6; O2SAT 96–99; BMI 23.3
[2022-10-27 04:17] LABS: Absolute Lymphocyte Count 1.55 X10^3/uL (0.83-4.51); Absolute Neutrophil Count 3.5 X10^3/uL (2.0-7.7); Basophil# 0.05 X10^3/uL; Basophil% 0.8 % (0-1); Eosinophil# 0.28 X10^3/uL; Eosinophils% 4.6 % (0-5); Hematocrit 34.7 % (37-47); Hemoglobin 11.5 g/dL (12.0-15.0); Lymphocyte # 1.55 X10^3/ul (0.83-4.51); Lymphocyte % 25.4 % (19-41); Mean Corp Hgb Conc 33.1 g/dL (32-36); Mean Corpuscular Hgb 30.7 pg (27.0-32.0); Mean Corpuscular Volume 92.8 fL (81-99); Mean Platelet Vol. 10.5 fl (6.2-12.0); Monocyte# 0.68 X10^3/uL; Monocyte% 11.1 % (0-10); NRBC Flagged by Analyzer 0 % (0-5); Neutrophil # 3.53 X10^3/uL (2.7-7.7); Neutrophil % 57.8 % (47-70); Platelet Count 195 K/mm3 (150-450); RBC Distribution Width CV 13.6 % (11.6-14.6); RBC Distribution Width SD 46.5 fl (35.1-43.9); Red Blood Count 3.74 M/mm3 (4.2-5.4); White Blood Count 6.1 K/mm3 (4.4-11.0)
[2022-10-27] MEDS: Acetaminophen 325 MG Tablet 650 MG PO ×2 (04:28→09:22)
[2022-10-27 04:37] LABS: AST(SGOT) 28 U/L (15-37); Alanine Aminotransfer ALT/SGPT 32 U/L (13-56); Albumin, Serum 2.9 g/dL (3.2-5.0); Alkaline Phosphatase 55 U/L (45-117); Anion Gap 5 (5-15); BUN 22 mg/dL (7-18); BUN/Creat Ratio 25.4 RATIO (10-20); Calcium,Total 8.4 mg/dL (8.5-10.1); Chloride 109 mmol/L (98-107); Creatinine, Serum 0.87 mg/dL (0.55-1.02); EST Glomerular Filtration Rate 67 mL/min (>60); Est Glom Filt Rate - Afr Amer 81 mL/min (>60); Estimated Creatinine Clearance 42.15 ml/min; Globulin 2.9 g/dL (2.2-4.2); Glucose 90 mg/dL (74-106); Potassium 3.7 mmol/L (3.5-5.1); Protein, Total 5.8 g/dL (6.4-8.2); Sodium Level 139 mmol/L (136-145)
[2022-10-27] MEDS: 0.9% Normal Saline 1,000 ML 100 ML IV (06:08)
[2022-10-27] MEDS: Psyllium 1 PACKET PO ×2 (08:06→21:38)
[2022-10-27] MEDS: Magnesium Chloride 64 MG Delay Rel.Tablet 128 MG PO (08:06)
[2022-10-27] MEDS: Multivitamins,Therapeutic Tablet 1 TABLET PO (08:06)
[2022-10-27] MEDS: Enoxaparin 40 MG/0.4 ML Syringe SC (08:06)
[2022-10-27] MEDS: busPIRone 5 MG Tablet 10 MG PO ×2 (08:07→21:36)
[2022-10-27] MEDS: Metoprolol Tartrate 25 MG Tablet PO ×2 (08:07→21:36)
[2022-10-27] MEDS: Docusate Sodium 100 MG Capsule PO ×2 (08:07→21:36)
--- NOTE | 2022-10-27 10:28 | PCM.CONS.GEN ---
Assessment & Plan Assessment/Plan (1) Discitis: PLAN: Would favor a diagnostic aspiration of L4-L5 for Gram stain and culture to isolate a specific pathogen if this is truly infectious process. Until then I will hold off on antibiotics until we have a definitive diagnosis and a culprit pathogen. HPI Consult Data Date of Consult: 10/27/22 HPI Narrative Reason for Consultation: Concern of lumbar discitis HPI Narrative: KEYONA GARCIA, is a 77 F who presents past medical history of lower back surgery 18 months ago, osteoarthritis status post total hip arthroplasty roughly 1 year ago who has had lingering back pain and underwent outpatient MRI of the lumbar spine which was read as abnormal and concern for L4-L5 discitis. In talking the patient she denies any fevers or chills. No significant constitutional symptoms other than her lower back pain. No skin lesions or rashes. Has not been on antimicrobial therapy prior to come to the hospital. Patient was admitted for further management of her abnormal MRI of her lumbar spine. [facility] Medical History Abnormal EKG Anxiety Arthritis Back pain Cardiology follow-up encounter Degenerative joint disease of left hip Edema History of echocardiogram History of stress test Hoarseness Leg cramps Neuropathy Non-smoker Polyarthritis Preop cardiovascular exam Restless leg syndrome Shortness of breath Spinal stenosis Vitamin D deficiency Walker as ambulation aid Wears glasses Home Medications buspirone 10 mg tablet 10 mg PO BID anxiety 11/06/14 [History Last Taken 10/26/22] multivitamin with folic acid 400 mcg tablet 1 tab PO DAILY supplement 11/06/14 [History Last Taken 10/25/22] omega-3s 360 hx-ckv-exx-fish oil 1,200 mg-D3 1,000 unit capsule 1 ea PO DAILY supplement 11/06/14 [History Last Taken 10/25/22] psyllium husk (aspartame) 3.4 gram oral powder packet (Metamucil Fiber Singles) 1 packet PO BID supplement 11/06/14 [History Last Taken 10/26/22] docusate sodium 100 mg capsule 100 mg PO BID constipation 05/02/19 [History Last Taken 10/25/22] glucosamine sulf dipot chlr,msm,chond 550 mg-C 30 mg-venkat 1 mg capsule 1 ea PO BID supplement 05/02/19 [History Last Taken 10/25/22] magnesium oxide 400 mg (241.3 mg magnesium) tablet 400 mg PO DAILY supplement 05/05/19 [History Last Taken 10/25/22] calcium 250 mg tablet 250 mg PO DAILY SUPPLEMENT 04/08/21 [History Last Taken 10/25/22] elderberry fruit 200 mg capsule 200 mg PO DAILY SUPPLEMENT 04/08/21 [History Last Taken 10/25/22] vitamin E 100 unit tablet 100 unit PO DAILY SUPPLEMENT 04/08/21 [History Last Taken 10/25/22] metoprolol tartrate 25 mg tablet 25 mg PO BID bp 10/01/21 [History Last Taken 10/26/22] ropinirole 0.25 mg tablet 0.25 mg PO QHS 11/10/21 [History Last Taken 10/25/22] trazodone 50 mg tablet 50 mg PO QHS PRN Sleep 10/26/22 [History Last Taken 10/25/22] Allergy/AdvReac Type Severity Reaction Status Date / Time citalopram AdvReac ANXIETY Verified 10/26/22 15:54 fluoxetine AdvReac ANXIETY Verified 10/26/22 15:54 sertraline AdvReac ANXIETY Verified 10/26/22 15:54 venlafaxine HCl AdvReac ANXIETY Verified 10/26/22 15:54 [From Effexor] Family History (Updated 10/26/22 @ 19:[address] Lela Brennan MD) Father Heart disease Mother Dementia Surgical History History of back surgery History of bilateral cataract extraction History of cardiac catheterization History of hip replacement, total History of tonsillectomy History of total hip replacement History of total right knee replacement Social History household members: none housing: condominium Smoking Status: Never smoker alcohol intake: never substance use type: does not use caffeine: Yes Type: carbonated beverages Number of servings: 1 and tea Number of servings: 1 ROS ROS Narrative As stated in the history of present illness others negative Physical Exam Narrative Alert responsive does not appear toxic lungs are clear heart exam S1-S2 abdomen soft nontender. Neurological exam is nonfocal Lab / Micro Data Result Diagrams: 10/27/22 04:05 10/27/22 04:05 Labs: Laboratory Results - last 24 hr 10/26/22 16:20: WBC 7.6, RBC 4.02 L, Hgb 12.6, Hct 36.7 L, MCV 91.3, MCH 31.3, MCHC 34.3, RDW Std Deviation 45.9 H, RDW Coeff of Edmund 13.5, Plt Count 208, MPV 10.5, Immature Gran % (Auto) 0.300, Neut % (Auto) 65.6, Lymph % (Auto) 20.9, [place] % (Auto) 9.7, Eos % (Auto) 2.8, Baso % (Auto) 0.7, Absolute Neuts (auto) 5.0, Absolute Lymphs (auto) 1.58, Nucleated RBC % 0 10/26/22 16:20: Sodium 138, Potassium 3.8, Chloride 106, Carbon Dioxide 27.0, Anion Gap 5, BUN 26 H, Creatinine 1.15 H, Estim Creat Clear Calc 31.89, Est GFR (MDRD) Af Amer 59 L, Est GFR (MDRD) Non-Af 49 L, BUN/Creatinine Ratio 22.6 H, Glucose 97, Calcium 9.2 10/26/22 16:20: ESR 9 10/26/22 16:20: C-React Prot Ext Range < 2.90 10/26/22 21:20: Procalcitonin < 0.01 10/27/22 04:05: WBC 6.1, RBC 3.74 L, Hgb 11.5 L, Hct 34.7 L, MCV 92.8, MCH 30.7, MCHC 33.1, RDW Std Deviation 46.5 H, RDW Coeff of Edmund 13.6, Plt Count 195, MPV 10.5, Immature Gran % (Auto) 0.300, Neut % (Auto) 57.8, Lymph % (Auto) 25.4, [place] % (Auto) 11.1 H, Eos % (Auto) 4.6, Baso % (Auto) 0.8, Absolute Neuts (auto) 3.5, Absolute Lymphs (auto) 1.55, Nucleated RBC % 0 10/27/22 04:05: Sodium 139, Potassium 3.7, Chloride 109 H, Carbon Dioxide 25.0, Anion Gap 5, BUN 22 H, Creatinine 0.87, Estim Creat Clear Calc 42.15, Est GFR (MDRD) Af Amer 81, Est GFR (MDRD) Non-Af 67, BUN/Creatinine Ratio 25.4 H, Glucose 90, Calcium 8.4 L, Total Bilirubin 0.50, AST 28, ALT 32, Alkaline Phosphatase 55, Total Protein 5.8 L, Albumin 2.9 L, Globulin 2.9, Albumin/Globulin Ratio 1.0
--- NOTE | 2022-10-27 12:02 | CON.PCM_ITS ---
Consult Date of Consult: 10/27/[address] Nassar dictating a consultation on Makayla Sepulveda Rohith. This patient is well-known to me as about a year and a half or so I did a 3 level decompression at the L2-3 L3-4 and L4-5 levels. None of the discs were violated. She does not have a history of recurrent UTIs. Currently she even asked me why she was in the hospital as she does not feel sick. She has not had any fever or chills. She does does have low back pain and has for about a year but that is probably due to the extensive arthritis in her low back. That is how she obtained the stenosis at those 3 surgical levels. Apparently an MRI scan was done at [facility] and the radiologist suggested the possibility of a discitis. He felt that it was probably most likely noninfectious discitis. On examination she is neurologically intact in both lower extremities. She has good motor strength of all the major muscle groups she has no long tract signs. Clonus is absent Babinski's are downgoing. We are awaiting the actual MRI scan to arrive on a disc. It can then be scanned into our system. We will have yet to actually see it. For a definitive diagnosis she should probably have a CT directed biopsy of the L4-[address] Christopher is holding off on antibiotics. Impression is that of possible discitis and more likely noninfective in nature. We will await the CT directed biopsy with cultures and Gram stain. Her ESR was only 9. In infective discitis it is usually much much higher. We will await for the MRI scan and results of the blood cultures that were taken. This is the end of consultation on Makayla Newberry. This is Dr. Nassar dictating.
--- NOTE | 2022-10-27 12:10 | CASEMGMT ---
SARA INGRAM Face to Face with patient for initial transition planning/care coordination assessment. SARA INGRAM introduced self and role at [facility]. Patient sitting in chair, alert and oriented. Patient willing to participate in assessment and is able to answer all questions appropriately. Care providers, pharmacy, and demographics verified. Patient wishes to discharge home, will follow for possible outpatient therapy. Patient states she has no further needs or concerns at this time. CM to follow for discharge planning needs that may arise. PCP: Carmen Specialists: Cesario, spinal ortho; Estella, spinal ortho; Lincoln, ortho; Basali, pain Preferred Pharmacy: [facility] Insurance: [facility] Prescription Benefit: yes Living Will/HPOA: yes, Ramirez Gutiérrez LNOK: son, friend Living Arrangements: Patient lives alone in a single story condo with 1 step and grab bar to enter the home. Patient states she is independent at home. Transportation: self, friend DME/HHC: Patient has raised toilet, cane, walker, grab bars at home. Patient has had [facility] HHC in the past. Patient has previously been to [facility]. Patient just finished outpatient therapy at [facility]. Patient wishes to discuss with Dr Nassar and will decide if she wants to restart outpatient therapy. Disposition Plan: Patient to discharge home with family support and follow-up plans in place. Will monitor for outpatient therapy Wendi HOPE, SARA, CM
--- NOTE | 2022-10-27 15:21 | PN_ITS ---
Subjective Subjective Patient seen and examined. She had no complaints. Her back pain was fairly well controlled, though she does complain of some numbness in her lower extremities which is longstanding. Review of systems is otherwise negative. Objective Data Objective Data Vital Signs: Vital Signs Temp Pulse Resp BP Pulse Ox O2 Del Method 97.8 F 65 14 114/68 97 Room Air 10/27/22 08:00 10/27/22 08:07 10/27/22 08:00 10/27/22 08:07 10/27/22 08:00 10/27/22 08:00 Oxygen Delivery Method Room Air Weight: 127 lb 6.835 oz Body Mass Index (BMI) 23.3 Intake & Output: Intake and Output for Last 24 Hours 10/25/22 10/26/22 10/27/22 23:59 23:59 23:59 Intake Total 250 / 250 1635 / 1635 Balance 250 / 250 1635 / 1635 Lab / Micro Data Result Diagrams: 10/27/22 04:05 10/27/22 04:05 Labs: Laboratory Results - last 24 hr 10/26/22 16:20: WBC 7.6, RBC 4.02 L, Hgb 12.6, Hct 36.7 L, MCV 91.3, MCH 31.3, MCHC 34.3, RDW Std Deviation 45.9 H, RDW Coeff of Edmund 13.5, Plt Count 208, MPV 10.5, Immature Gran % (Auto) 0.300, Neut % (Auto) 65.6, Lymph % (Auto) 20.9, [place] % (Auto) 9.7, Eos % (Auto) 2.8, Baso % (Auto) 0.7, Absolute Neuts (auto) 5.0, Absolute Lymphs (auto) 1.58, Nucleated RBC % 0 10/26/22 16:20: Sodium 138, Potassium 3.8, Chloride 106, Carbon Dioxide 27.0, Anion Gap 5, BUN 26 H, Creatinine 1.15 H, Estim Creat Clear Calc 31.89, Est GFR (MDRD) Af Amer 59 L, Est GFR (MDRD) Non-Af 49 L, BUN/Creatinine Ratio 22.6 H, Glucose 97, Calcium 9.2 10/26/22 16:20: ESR 9 10/26/22 16:20: C-React Prot Ext Range < 2.90 10/26/22 21:20: Procalcitonin < 0.01 10/27/22 04:05: WBC 6.1, RBC 3.74 L, Hgb 11.5 L, Hct 34.7 L, MCV 92.8, MCH 30.7, MCHC 33.1, RDW Std Deviation 46.5 H, RDW Coeff of Edmund 13.6, Plt Count 195, MPV 10.5, Immature Gran % (Auto) 0.300, Neut % (Auto) 57.8, Lymph % (Auto) 25.4, [place] % (Auto) 11.1 H, Eos % (Auto) 4.6, Baso % (Auto) 0.8, Absolute Neuts (auto) 3.5, Absolute Lymphs (auto) 1.55, Nucleated RBC % 0 10/27/22 04:05: Sodium 139, Potassium 3.7, Chloride 109 H, Carbon Dioxide 25.0, Anion Gap 5, BUN 22 H, Creatinine 0.87, Estim Creat Clear Calc 42.15, Est GFR (MDRD) Af Amer 81, Est GFR (MDRD) Non-Af 67, BUN/Creatinine Ratio 25.4 H, Glucose 90, Calcium 8.4 L, Total Bilirubin 0.50, AST 28, ALT 32, Alkaline Phosphatase 55, Total Protein 5.8 L, Albumin 2.9 L, Globulin 2.9, Albumin/Globulin Ratio 1.0 Physical Exam Const alert, oriented x3 and no apparent distress HEENT normocephalic, head/scalp atraumatic and moist oral mucous membranes Neck supple and no JVD Lymph Lymphatic: no lymphadenopathy noted and no lymphedema noted Resp normal respiratory effort, normal air movement and clear to auscultation bilaterally Cardio regular rate, regular rhythm, S1 normal heart sound, S2 normal heart sound and no murmurs GI normal to inspection, nondistended, normoactive bowel sounds, soft to palpation, non-tender and non-distended Extremity normal capillary refill, no clubbing, cyanosis or edema and no calf tenderness General Extremity: clubbing, cyanosis and no tenderness to palpation of joints or extremities Skin General Skin Exam: no breakdown and turgor normal Neuro CN's II-XII intact bilaterally, no focal motor deficits, no sensory deficits noted and deep tendon reflexes 2+ bilaterally Coordination / Balance: [id number] test normal Motor Exam: strength 5/5 throughout Psych thought process normal Assessment & Plan Assessment/Plan (1) Spinal stenosis of lumbar region with radiculopathy: (2) Discitis: (3) Low back pain: PLAN: Plan #Probable lumbar discitis * back pain is now better controlled. * MRI lumbar spine done on outpatient basis was concerning for L4-5 Discitis * ID on board; per ID, antibiotics held. * to have biopsy of the L4-5 area tomorrow per ID to evaluate for infection. To hold off on antibiotics till then * PT/OT on board * on PO tylenol and oxycodone for pain * fall precautions * #Restless leg syndrome: on ropinirole #Hypertension; on metoprolol #ANxiety and depression; on buspirone. DVT prophylaxis:SCDs. hold lovenox since she will be getting the biopsy tomorrow Total time spent on evaluation and management of patient, reviewing chart and specialist notes, discussing plan with patient, discussion with nursing and ancillary staff as well as documentation: 45 mins Charges/Coding Visit Charges Inpatient E&M: 47273 Subs Hosp L2
[2022-10-27] MEDS: Pramipexole Di-HCl 0.125 MG Tablet PO (21:35)
[2022-10-28] VITALS (9 sets, daily range): BP systolic 120–121; BP diastolic 53–61; PULSE 61–76; RESP 16; TEMP 36.3–36.7; O2SAT 95–98
[2022-10-28 03:57] LABS: Absolute Lymphocyte Count 1.31 X10^3/uL (0.83-4.51); Absolute Neutrophil Count 3.4 X10^3/uL (2.0-7.7); Basophil# 0.05 X10^3/uL; Basophil% 0.9 % (0-1); Eosinophil# 0.26 X10^3/uL; Eosinophils% 4.6 % (0-5); Hematocrit 36.9 % (37-47); Hemoglobin 12.3 g/dL (12.0-15.0); Lymphocyte # 1.31 X10^3/ul (0.83-4.51); Lymphocyte % 23.4 % (19-41); Mean Corp Hgb Conc 33.3 g/dL (32-36); Mean Corpuscular Hgb 30.9 pg (27.0-32.0); Mean Corpuscular Volume 92.7 fL (81-99); Mean Platelet Vol. 10.3 fl (6.2-12.0); Monocyte# 0.59 X10^3/uL; Monocyte% 10.5 % (0-10); NRBC Flagged by Analyzer 0 % (0-5); Neutrophil # 3.38 X10^3/uL (2.7-7.7); Neutrophil % 60.4 % (47-70); Platelet Count 190 K/mm3 (150-450); RBC Distribution Width CV 13.6 % (11.6-14.6); RBC Distribution Width SD 46.6 fl (35.1-43.9); Red Blood Count 3.98 M/mm3 (4.2-5.4); White Blood Count 5.6 K/mm3 (4.4-11.0)
[2022-10-28 04:12] LABS: Anion Gap 6 (5-15); BUN 20 mg/dL (7-18); BUN/Creat Ratio 21.8 RATIO (10-20); Chloride 108 mmol/L (98-107); Creatinine, Serum 0.92 mg/dL (0.55-1.02); EST Glomerular Filtration Rate 63 mL/min (>60); Est Glom Filt Rate - Afr Amer 76 mL/min (>60); Estimated Creatinine Clearance 39.86 ml/min; Glucose 103 mg/dL (74-106); Potassium 3.9 mmol/L (3.5-5.1); Sodium Level 138 mmol/L (136-145)
[2022-10-28] MEDS: Acetaminophen 325 MG Tablet 650 MG PO (04:16)
[2022-10-28] MEDS: Multivitamins,Therapeutic Tablet 1 TABLET PO (09:17)
[2022-10-28] MEDS: Gabapentin 100 MG Capsule PO ×3 (09:17→18:03)
[2022-10-28] MEDS: Psyllium 1 PACKET PO ×2 (09:17→21:20)
[2022-10-28] MEDS: Magnesium Chloride 64 MG Delay Rel.Tablet 128 MG PO (09:17)
[2022-10-28] MEDS: busPIRone 5 MG Tablet 10 MG PO ×2 (09:17→21:20)
[2022-10-28] MEDS: Docusate Sodium 100 MG Capsule PO ×2 (09:17→21:16)
[2022-10-28] MEDS: Metoprolol Tartrate 25 MG Tablet PO ×2 (09:18→21:16)
--- NOTE | 2022-10-28 14:39 | PN_ITS ---
Subjective Subjective Patient seen and examined. She had no active complaints and had an uneventful night. She denied any back pain. Review of systems is otherwise negative. She was due for spinal biopsy today but radiology indicates they will not be able to do it. She has remained hemodynamically stable. Objective Data Objective Data Vital Signs: Vital Signs Temp Pulse Resp BP Pulse Ox O2 Del Method 97.5 F L 65 16 121/53 H 96 Room Air 10/28/22 09:00 10/28/22 09:18 10/28/22 09:00 10/28/22 09:00 10/28/22 09:00 10/28/22 09:00 Oxygen Delivery Method Room Air Weight: 127 lb 6.835 oz Body Mass Index (BMI) 23.3 Intake & Output: Intake and Output for Last 24 Hours 10/26/22 10/27/22 10/28/22 23:59 23:59 23:59 Intake Total 250 / 250 3660 / 3660 450 / 450 Balance 250 / 250 3660 / 3660 450 / 450 Lab / Micro Data Result Diagrams: 10/28/22 03:45 10/28/22 03:45 Labs: Laboratory Results - last 24 hr 10/28/22 03:45: WBC 5.6, RBC 3.98 L, Hgb 12.3, Hct 36.9 L, MCV 92.7, MCH 30.9, MCHC 33.3, RDW Std Deviation 46.6 H, RDW Coeff of Edmund 13.6, Plt Count 190, MPV 10.3, Immature Gran % (Auto) 0.200, Neut % (Auto) 60.4, Lymph % (Auto) 23.4, Stanton % (Auto) 10.5 H, Eos % (Auto) 4.6, Baso % (Auto) 0.9, Absolute Neuts (auto) 3.4, Absolute Lymphs (auto) 1.31, Nucleated RBC % 0 10/28/22 03:45: Sodium 138, Potassium 3.9, Chloride 108 H, Carbon Dioxide 24.0, Anion Gap 6, BUN 20 H, Creatinine 0.92, Estim Creat Clear Calc 39.86, Est GFR (MDRD) Af Amer 76, Est GFR (MDRD) Non-Af 63, BUN/Creatinine Ratio 21.8 H, Glucose 103, Calcium 9.0 Physical Exam Const alert, oriented x3 and no apparent distress General Appearance: cooperative HEENT normocephalic, head/scalp atraumatic and moist oral mucous membranes Eyes PERRL Neck supple and no JVD Lymph Lymphatic: no lymphadenopathy noted and no lymphedema noted Resp normal respiratory effort, normal air movement and clear to auscultation bilaterally Cardio regular rate, regular rhythm, S1 normal heart sound, S2 normal heart sound and no murmurs GI normal to inspection, nondistended, normoactive bowel sounds, soft to palpation, non-tender and non-distended Extremity normal capillary refill, no clubbing, cyanosis or edema and no calf tenderness General Extremity: clubbing, cyanosis and no tenderness to palpation of joints or extremities Skin General Skin Exam: no breakdown and turgor normal Neuro CN's II-XII intact bilaterally, no focal motor deficits, no sensory deficits noted and deep tendon reflexes 2+ bilaterally Coordination / Balance: [id number] test normal Motor Exam: strength 5/5 throughout Psych thought process normal Assessment & Plan Assessment/Plan (1) Spinal stenosis of lumbar region with radiculopathy: (2) Discitis: (3) Low back pain: PLAN: Plan #Probable lumbar discitis * back pain is now better controlled. * MRI lumbar spine done on outpatient basis was concerning for L4-5 Discitis * ID on board; per ID, antibiotics held. * was to have biopsy of the L4-5 area per ID to evaluate for infection. To hold off on antibiotics till then. Radiology however not willing to do it. * PT/OT on board * on PO tylenol and oxycodone for pain * fall precautions * Will discuss with Dr Jiménez about whether he can do the biopsy * #Restless leg syndrome: on ropinirole #Hypertension; on metoprolol #ANxiety and depression; on buspirone. DVT prophylaxis:SCDs. hold lovenox since she will be getting the biopsy tomorrow Total time spent on evaluation and management of patient, reviewing chart and specialist notes, discussing plan with patient, discussion with nursing and ancillary staff as well as documentation: 40 mins Charges/Coding Visit Charges Inpatient E&M: 72294 Subs Hosp L2
[2022-10-28] MEDS: Pramipexole Di-HCl 0.125 MG Tablet PO ×2 (21:20→21:45)
[2022-10-29 03:00] VITALS: BP 117/59; PULSE 60; RESP 14; TEMP 36.6; O2SAT 99
--- NOTE | 2022-10-29 05:39 | NURSING ---
Downtime on 10/29/22 from [id number].
[2022-10-29 06:00] VITALS: BMI 23.3
[2022-10-29 06:09] LABS: Absolute Lymphocyte Count 1.47 X10^3/uL (0.83-4.51); Absolute Neutrophil Count 3.2 X10^3/uL (2.0-7.7); Basophil# 0.06 X10^3/uL; Basophil% 1.1 % (0-1); Eosinophil# 0.24 X10^3/uL; Eosinophils% 4.4 % (0-5); Hematocrit 37.6 % (37-47); Hemoglobin 12.7 g/dL (12.0-15.0); Lymphocyte # 1.47 X10^3/ul (0.83-4.51); Lymphocyte % 26.7 % (19-41); Mean Corp Hgb Conc 33.8 g/dL (32-36); Mean Corpuscular Hgb 31.3 pg (27.0-32.0); Mean Corpuscular Volume 92.6 fL (81-99); Mean Platelet Vol. 10.3 fl (6.2-12.0); Monocyte# 0.56 X10^3/uL; Monocyte% 10.2 % (0-10); NRBC Flagged by Analyzer 0 % (0-5); Neutrophil # 3.17 X10^3/uL (2.7-7.7); Neutrophil % 57.4 % (47-70); Platelet Count 204 K/mm3 (150-450); RBC Distribution Width CV 13.5 % (11.6-14.6); RBC Distribution Width SD 46.8 fl (35.1-43.9); Red Blood Count 4.06 M/mm3 (4.2-5.4)
[2022-10-29 06:28] LABS: White Blood Count 5.5 K/mm3 (4.4-11.0)
[2022-10-29 07:45] VITALS: O2SAT 97
[2022-10-29 08:15] LABS: Anion Gap 6 (5-15); BUN 21 mg/dL (7-18); BUN/Creat Ratio 22.3 RATIO (10-20); Calcium,Total 8.7 mg/dL (8.5-10.1); Chloride 106 mmol/L (98-107); Creatinine, Serum 0.94 mg/dL (0.55-1.02); EST Glomerular Filtration Rate 61 mL/min (>60); Est Glom Filt Rate - Afr Amer 74 mL/min (>60); Estimated Creatinine Clearance 39.01 ml/min; Glucose 101 mg/dL (74-106); Potassium 3.7 mmol/L (3.5-5.1); Sodium Level 136 mmol/L (136-145)
[2022-10-29] MEDS: Gabapentin 100 MG Capsule PO (08:25)
[2022-10-29] MEDS: busPIRone 5 MG Tablet 10 MG PO (08:25)
[2022-10-29] MEDS: Magnesium Chloride 64 MG Delay Rel.Tablet 128 MG PO (08:26)
[2022-10-29] MEDS: Docusate Sodium 100 MG Capsule PO (08:26)
[2022-10-29] MEDS: Multivitamins,Therapeutic Tablet 1 TABLET PO (08:26)
[2022-10-29] MEDS: Psyllium 1 PACKET PO (08:26)
[2022-10-29 08:29] VITALS: BP 116/44; PULSE 66
[2022-10-29] MEDS: Metoprolol Tartrate 25 MG Tablet PO (08:29)
[2022-10-29 09:00] VITALS: BP 114/66; PULSE 66; RESP 16; TEMP 36.3; O2SAT 97
--- NOTE | 2022-10-29 10:11 | DS.PCM_ITS ---
Providers Date of Admission: 10/26/22 Date of Discharge: 10/29/22 Primary Care Physician: Dr. Gloria Morales MD Consultations 10/26/22 20:10 Consult: Infectious Disease Routine Consulting Provider: Kimani Mora Reason for Consult: Possible lumbar discitis EMERGENT Consult: No Notified: Yes Date Notified: 10/27/22 Time Notified: 08:36 Method of Notification: Answering Service Consult: Orthopedics Routine Consulting Provider: Edgar Nassar Reason for Consult: Possible lumbar discitis EMERGENT Consult: No Notified: Yes Date Notified: 10/26/22 Time Notified: 18:59 Method of Notification: ED Physician Initiated Reason For Visit: LUMBAR BACK PAIN, LUMBAR DISCITIS Diagnosis Discharge Diagnosis (1) Spinal stenosis of lumbar region with radiculopathy: Status: Acute Code(s): M48.061 - Spinal stenosis, lumbar region without neurogenic claudication; M54.16 - Radiculopathy, lumbar region (2) Discitis: Status: Acute Code(s): M46.40 - Discitis, unspecified, site unspecified (3) Low back pain: Status: Acute Code(s): M54.50 - Low back pain, unspecified Plan #Probable lumbar discitis * back pain is now better controlled. * MRI lumbar spine done on outpatient basis was concerning for L4-5 Discitis * ID on board; per ID, antibiotics held. * was to have biopsy of the L4-5 area per ID to evaluate for infection. To hold off on antibiotics till then. Radiology however not willing to do it. * PT/OT on board * on PO tylenol and oxycodone for pain * fall precautions * Will discuss with Dr Jiménez about whether he can do the biopsy * #Restless leg syndrome: on ropinirole #Hypertension; on metoprolol #ANxiety and depression; on buspirone. DVT prophylaxis:SCDs. hold lovenox since she will be getting the biopsy tomorrow Total time spent on evaluation and management of patient, reviewing chart and specialist notes, discussing plan with patient, discussion with nursing and ancillary staff as well as documentation: 40 mins Medications at Discharge Home Medications buspirone 10 mg tablet 10 mg PO BID anxiety 11/06/14 multivitamin with folic acid 400 mcg tablet 1 tab PO DAILY supplement 04/14/15 omega-3s 360 if-xfb-ymh-fish oil 1,200 mg-D3 1,000 unit capsule 1 ea PO DAILY supplement 11/06/14 psyllium husk (aspartame) 3.4 gram oral powder packet (Metamucil Fiber Singles) 1 packet PO BID supplement 11/06/14 docusate sodium 100 mg capsule 100 mg PO BID constipation 05/02/19 glucosamine sulf dipot chlr,msm,chond 550 mg-C 30 mg-venkat 1 mg capsule 1 ea PO BID supplement 05/02/19 magnesium oxide 400 mg (241.3 mg magnesium) tablet 400 mg PO DAILY supplement 05/05/19 calcium 250 mg tablet 250 mg PO DAILY SUPPLEMENT 04/08/21 elderberry fruit 200 mg capsule 200 mg PO DAILY SUPPLEMENT 04/08/21 vitamin E 100 unit tablet 100 unit PO DAILY SUPPLEMENT 04/08/21 metoprolol tartrate 25 mg tablet 25 mg PO BID bp 10/01/21 ropinirole 0.25 mg tablet 0.25 mg PO QHS 11/10/21 trazodone 50 mg tablet 50 mg PO QHS PRN Sleep 10/26/22 acetaminophen 325 mg tablet 650 mg PO Q4H PRN PRN Fever, pain 1-05/04 #30 tabs 10/29/22 gabapentin 100 mg capsule 100 mg PO BID #60 caps 10/29/22 Hospital Course Operations None Procedures None Summary of Care Provided Minutes Spent on Discharge: 45 Hospital Course: Patient is a 77 y/o female with a PMH as outlined who was admitted with a complaint of low back pain. The pain had been going on for about a year and was described as dull and aching and worsened by mild exertion. She had had an ou tpatient lumbar MRI done which showed probable L4-L5 discitis so she was referred to the ED. She denied any fever or chills, sweats or weight loss. Review of systems otherwise negative. Patient was able to ambulate with a walker. She was started on IV vancomycin and Zosyn. Infectious disease was consulted and requested for spinal biopsy to evaluate for infection. Antibiotics were stopped in the interim. Radiology did not think that this biopsy was warranted and requested that we speak to pain management. I did speak to Dr. Jiménez who on reviewing the imaging and per patient history, was not convinced that this was really a discitis as the pain had been going on for a year and patient did not have any elevated white cell count or fever or chills or any other systemic symptoms. Doxycycline therefore spoke to Dr. Belkys Ocampo the radiologist and also spoke to Dr. Nassar the spine surgeon and together they reviewed the images and did not think that patient had discitis and therefore did not need any spinal disc biopsy. Patient did well in the hospital on gabapentin and Tylenol. She was able to ambulate and had very minimal pain. She remained stable and was discharged home on 10/29/2022. She is to follow-up with her primary care doctor and also to follow-up with spine surgery for further review and evaluation as well as treatment of her neuro back pain. Patient seen and examined prior to discharge. She had no complaints and had an uneventful night. Review of systems otherwise negative. Labs and vitals reviewed. Home medication reviewed and reconciled. Physical Exam Const alert, oriented x3 and no apparent distress General Appearance: cooperative, comfortable and well kempt Exam Limitations: no limitations HEENT normocephalic, head/scalp atraumatic, hearing grossly normal bilaterally and moist oral mucous membranes Mouth: oral and palatal mucosa normal Eyes PERRL, EOMs intact bilaterally and conjunctivae normal Neck no lymphadenopathy, supple and no JVD Lymph Lymphatic: no lymphadenopathy noted and no lymphedema noted Resp normal respiratory effort, normal air movement and clear to auscultation bilaterally Cardio regular rate, regular rhythm, S1 normal heart sound, S2 normal heart sound and no murmurs GI normal to inspection, nondistended, normoactive bowel sounds, soft to palpation, non-tender and non-distended Extremity normal to inspection, full ROM, normal capillary refill, no clubbing, cyanosis or edema and no calf tenderness General Extremity: clubbing, cyanosis and no tenderness to palpation of joints or extremities Skin General Skin Exam: no breakdown and turgor normal Neuro oriented x3, CN's II-XII intact bilaterally, moves all extremities, no focal motor deficits, no sensory deficits noted and deep tendon reflexes 2+ bilaterally Coordination / Balance: lvzxbo-zh-nnxi test normal Motor Exam: strength 5/5 throughout Psych thought process normal Weight / BMI Weight Weight: 127 lb 6.835 oz Body Mass Index (BMI) 23.3 ABG / Lab / Microbiology Data Result Diagrams: 10/29/22 03:15 10/29/22 03:15 Laboratory: Laboratory Results - last 24 hr 04/06/23 03:15: WBC 5.5, RBC 4.06 L, Hgb 12.7, Hct 37.6, MCV 92.6, MCH 31.3, MCHC 33.8, RDW Std Deviation 46.8 H, RDW Coeff of Edmund 13.5, Plt Count 204, MPV 10.3, Immature Gran % (Auto) 0.200, Neut % (Auto) 57.4, Lymph % (Auto) 26.7, [place] % (Auto) 10.2 H, Eos % (Auto) 4.4, Baso % (Auto) 1.1 H, Absolute Neuts (auto) 3.2, Absolute Lymphs (auto) 1.47, Nucleated RBC % 0 10/29/22 03:15: Sodium 136, Potassium 3.7, Chloride 106, Carbon Dioxide 24.0, Anion Gap 6, BUN 21 H, Creatinine 0.94, Estim Creat Clear Calc 39.01, Est GFR (MDRD) Af Amer 74, Est GFR (MDRD) Non-Af 61, BUN/Creatinine Ratio 22.3 H, Glucose 101, Calcium 8.7 Microbiology: Microbiology 10/26/22 17:30 Blood Culture (Wb) - Arm Right Blood Culture - Preliminary No growth in 48 hours. 10/26/22 16:20 Blood Culture (Wb) - Anticubital Right Blood Culture - P reliminary No growth in 48 hours. D/C Instructions Discharge Diet: Low fat / Low cholesterol Discharge Activity: Return to Normal Activity Weight Bearing Status: Weight bearing as tolerated Call your doctor if you observe: Fever of 101 or Higher, Shortness of breath, Dizziness, Swelling in the ankles, Chest pain, Increased palpitations (irregular heartbeat) and Uncontrolled pain Meaningful Use Info Meaningful Use Diagnoses (Choose all that apply): None applicable Discharge Plan Admission Admit Date/Time: 10/26/22 18:01 Primary Reason for Your Visit: lower back pain Attending Provider: Promise Stephenson Primary Care Provider: Gloria Morales Consulting Providers: Edgar Nassar ; Lela Brennan ; Kimani Mora Discharge Orders/Prescriptions Prescriptions: New gabapentin 100 mg capsule 100 mg PO BID Qty: 60 1RF acetaminophen 325 mg Tablet 650 mg PO Q4H PRN PRN (Reason: Fever, pain 1-05/04) Qty: 30 0RF Continued magnesium oxide 400 mg (241.3 mg magnesium) tablet 400 mg PO DAILY ropinirole 0.25 mg tablet 0.25 mg PO QHS Metamucil Fiber Singles 1 PACKET packet 1 packet PO BID Label Comments: STOOL SOFTNER/FIBER multivitamin with folic acid 1 TABLET tablet 1 tab PO DAILY Label Comments: SUPPLEMENT owozx-6z-qan-epa-fish oil-D3 1 EACH capsule 1 ea PO DAILY Label Comments: SUPPLEMENT buspirone 10 MG tablet 10 mg PO BID Label Comments: ANXIETY/DEPRESSION glucos sul [id number]-sevpy-C-Mn 1 EACH capsule 1 ea PO BID docusate sodium 100 MG capsule 100 mg PO BID calcium 250 mg Tablet 250 mg PO DAILY vitamin E 100 unit Tablet 100 unit PO DAILY elderberry fruit 200 mg Capsule 200 mg PO DAILY metoprolol tartrate 25 mg tablet 25 mg PO BID Label Comments: TAKE 1 TABLET BY MOUTH TWICE DAILY trazodone 50 mg tablet 50 mg PO QHS PRN (Reason: Sleep) Label Comments: TAKE 1 TABLET BY MOUTH AT BEDTIME NEEDED Referrals / Follow Up: Gloria Morales MD [Primary Care Provider] - 11/11/22 2:25 pm () Edgar Nassar DO [Med Staff - Active Staff] - 11/12/22 11:30 am () Disposition Disposition (needs filled in before D/C Order can be placed): Home, Self Care Charges/Coding Visit Charges Inpatient E&M: 03457 Disch Hosp >30min
--- NOTE | 2022-10-29 10:11 | DCINST_ITS ---
Discharge Instructions Diet Discharge Diet: Low fat / Low cholesterol Activity Discharge Activity: Return to Normal Activity Weight Bearing Status: Weight bearing as tolerated Dressing / Incision Call your doctor if you observe: Fever of 101 or Higher, Shortness of breath, Dizziness, Swelling in the ankles, Chest pain, Increased palpitations (irregular heartbeat) and Uncontrolled pain Follow Up Care Test Results: Test results from this visit will be discussed in further detail at your follow- up appointment, if applicable. Discharge Plan Admission Admit Date/Time: 10/26/22 18:01 Primary Reason for Your Visit: lower back pain Attending Provider: Promise Stephenson Primary Care Provider: Gloria Morales Consulting Providers: Edgar Nassar ; Lela Brennan ; Kimani Mora Discharge Orders/Prescriptions Prescriptions: New gabapentin 100 mg capsule 100 mg PO BID Qty: 60 1RF acetaminophen 325 mg Tablet 650 mg PO Q4H PRN PRN (Reason: Fever, pain 1-05/04) Qty: 30 0RF Continued magnesium oxide 400 mg (241.3 mg magnesium) tablet 400 mg PO DAILY ropinirole 0.25 mg tablet 0.25 mg PO QHS Metamucil Fiber Singles 1 PACKET packet 1 packet PO BID Label Comments: STOOL SOFTNER/FIBER multivitamin with folic acid 1 TABLET tablet 1 tab PO DAILY Label Comments: SUPPLEMENT exnry-0a-tyw-epa-fish oil-D3 1 EACH capsule 1 ea PO DAILY Label Comments: SUPPLEMENT buspirone 10 MG tablet 10 mg PO BID Label Comments: ANXIETY/DEPRESSION glucos sul 7YWr-fkf-yuuyz-C-Mn 1 EACH capsule 1 ea PO BID docusate sodium 100 MG capsule 100 mg PO BID calcium 250 mg Tablet 250 mg PO DAILY vitamin E 100 unit Tablet 100 unit PO DAILY elderberry fruit 200 mg Capsule 200 mg PO DAILY metoprolol tartrate 25 mg tablet 25 mg PO BID Label Comments: TAKE 1 TABLET BY MOUTH TWICE DAILY trazodone 50 mg tablet 50 mg PO QHS PRN (Reason: Sleep) Label Comments: TAKE 1 TABLET BY MOUTH AT BEDTIME NEEDED Referrals / Follow Up: Gloria Morales MD [Primary Care Provider] - Within 2 Weeks Edgar Nassar DO [Med Staff - Active Staff] - Within 2 Weeks Disposition Disposition (needs filled in before D/C Order can be placed): Home, Self Care
--- NOTE | 2022-10-29 12:13 | CASEMGMT ---
RN NATALY called patient to complete SOTOMAYOR form over the phone. RN NATALY explained SOTOMAYOR form, patient voiced understanding. Patient gave telephone consent. Original form filed in chart. Copy of Sotom[employer]or form was emailed to patient per request. Patient had no further questions or concerns.
== END 2022-10-29 11:55 | disposition home or self-care (01) ==
LOC: ED 16:33 → ICU 10-27 07:19
PROVIDERS: Admitting Provider Family Medicine; Emergency Provider Student in an Organized Health Care Education/Training Program; PCP Internal Medicine; Visit Provider Student in an Organized Health Care Education/Training Program
DX: M48.061 Spinal stenosis, lumbar region without neurogenic claudication (principal); M46.46 Discitis, unspecified, lumbar region; G25.81 Restless legs syndrome; I10 Essential (primary) hypertension; G89.29 Other chronic pain; M46.40 Discitis, unspecified, site unspecified; F41.9 Anxiety disorder, unspecified; F32.A Depression, unspecified; Z79.899 Other long term (current) drug therapy
CPT/HCPCS: 80048; 80053; 84145; 85025; 85652; 86140; 87040; 94668; 96361; 96365; 96367; 96372; 99221; 99283; J7030; J7050; A4216; G0378; J0696

== ENCOUNTER 2023-04-12 14:00 | Outpatient (RCR) | payer MEDICARE, SELFPAY ==
--- NOTE | 2023-01-28 14:21 | HP.PTEVAL_ITS ---
Patient's Visit Information Visit Information Visit Information: KEYONA GARCIA is a 77 year old F referred to Physical Therapy by Dr. Naseem Maciel MD with a diagnosis of FUSION POSTERIOR L2-S1 AND DECOMPRESSION L2-S1. Date of Evaluation: 01/28/23 Physical Therapist: Lidia Sheridan PT, Cert MDT Visit Plan Frequency: 2x /Week Duration: 4 Weeks Plan: *EVAL ONLY - *CHECK AUTH NEXT VISIT: RECORD # OF VISITS APPROVED (BUT NO MORE THAN 8) AND EXPIRATION DATE. CHECK CODES APPROVED WITH POC* *NO BENDING, LIFTING OR TWISTING UNTIL AT LEAST 8 WKS POST OP* 2X'S A WK X 4 WKS FOR 8 VISITS TOTAL ON CURRENT ORDER THEN RE-CHECK. POSTURE CORRECTION/STRENGTHENING, INSTRUCTION IN APPROPRIATE BODY MECHANICS AND ACTIVITY MODIFICATIONS. DLS WITH NEUTRAL SPINE ONLY. JUAN LE ROM, STRETCHING AND STRENGTHENING. HEP INSTRUCTION. Subjective Subjective: Work/Leisure: RETIRED Present symptoms: LOW BACK PAIN. JUAN THIGH AND LEG PAIN TO ANKLES. NUMBNESS ON THE BOTTOM OF FEET AND TOES. JUAN LE EDEMA SINCE SURGERY THAT PATIENT REPORTS DR. MACIEL IS AWARE OF AND SHE HAS ALSO CALLED HER PCP ABOUT. Present since: ABOUT A YEAR Pain Scale: WORST 9/10, LEAST 6/10 Currently: 7/10 Is it getting better, worse or staying the same: GETTING BETTER Commenced as a result of: NO APPARENT REASON Symptoms at onset: L LBP Worse: SITTING, STANDING, WALKING, GETTING IN AND OUT OF BED, GETTING IN AND OUT OF CAR Better: RECLINING, MEDICATION Disturbed sleep: YES Previous history/Previous treatment: SEPTEMBER 2021 L THR - BACK PAIN STARTED AFTER THE HIP SX WHILE IN THE HOSPITAL FOR NO APPARENT REASON. STANDING ON SOFA WASHING PICTURE ON WALL - TWISTED TO LOOK AT DOG AND FELL BACKWARDS ON FLOOR - BACK LANDED ON PLASTIC STEPS - PAIN WAS AWFUL BEFORE MAR 2021 THEN HAD FIRST BACK SURGERY MAR 2021 - PATIENT REPORTS FULL RECOVERY BY ONE YEAR. PHYSICAL THERPAY HERE AT AFTER FIRST BACK SURGERY. PAIN MGMT WITH DR. WOOD INCLUDING INJECTIONS. Coughing/sneezing/straining: NEGATIVE FOR LBP Gait: USING ROLLATOR IN AND OUT OF HOUSE. 2 STEPS INTO HOUSE WITH GRAB BAR AND GOING UP AND DOWN THEM CURRENTLY INDEP'LY. NO STEPS IN HOUSE EXCEPT TO BASEMENT AND DOES NOT GO DOWN THERE. Bowel or Bladder Dysfunction: DENIES INCONTINENCE Unexplained weight loss: NO Imaging: NONE SINCE BACK SURGERY THAT PATIENT IS AWARE OF. PMH/Recent major surgery: JUAN THR'S. R THR. ANXIETY. ARTHRITIS. OTHER: LIVES ALONE. WALKING ABOUT 20 MINUTES 2X'S A DAY OUTSIDE. Objective Objective: Sitting/Standing Posture: POOR. INCREASED TRUNK FLEXION IN SITTING AND STANDING. FH. RSH'S. Active Correction of posture: BETTER Other Observations: THIS PATIENT AMBULATES INDEP'LY INTO PHYSICAL THERAPY WITH ROLLATOR. SHE WALKS WITH SLOW CADANCE, INCREASED TRUNK FLEXION AND DEPENDENCE ON ROLLATOR. SHE ALSO WALKS WITH DECREASED JUAN STRIDE LENGTH AND DECREASED JUAN KNEE FLEXION DURING SWING PHASE OF GAIT. MODERATE JUAN LE EDEMA. Sensory deficit: JUAN LE LIGHT TOUCH SENSATION GROSSLY INTACT AND SYMMETRICAL ROM deficit: TIGHT JUAN HIPS, HS'S AND GASTROC SOLEUS COMPLEX'S. Motor deficit: R LE: HIP 4/5, KNEE 4/5, ANKLE 4/5. L LE: HIP 4-/5, KNEE 4- /5, ANKLE 2+/5 Dural Signs: NEGATIVE JUAN LE'S. Lumbar mvmt loss: NT Core strength: POOR Palpation: INCISION LOOKS GOOD WITHOUT ANY SIGNS OF INFECTION EXCEPT THERE IS AN APPROX 1/8TH INCH GAP IN THE TOP 1.25 INCHES OF INCISION. NO SIGNS OF DRAINAGE. PATIENT REPORTS SHE IS MONITORING HER INCISION DAILY. INSTRUCTED IN SIGNS OF INFECTION AND TO SEEK URGENT MEDICAL CARE IF ANY SIGNS DEVELOP. PATIENT COMMUNICATED A GOOD UNDERSTANDING. OTHER: PATIENT DOES NOT WANT TO DO AQUATIC THERAPY BUT WILL CONSIDER IT IF SHE DOES NOT TOLERATE LAND THERAPY WELL. Balance/Special Test Scores Oswestry Low Back Score: 35 Goals Goal 1:: DECREASE C/O BACK AND JUAN LE SX'S Goal Time Frame: 8-12 Weeks Goal 2:: IMPROVE PERSONAL CARE, LIFTING, WALKING, SITTING, STANDING, SLEEP, SOCIAL LIFE, TRAVEL AND HOMEMAKING FUNCTION. Goal Time Frame: 8-12 Weeks Goal 3:: INSTRUCT IN PROPHYLAXIS Goal Time Frame: 8-12 Weeks Anticipated Interventions Patient/Client Instruction: Educate patient on: Condition, Plan of Care and Risk Factors For the Purpose of:: To improve self management Therapeutic Exercise to Include: Strength training, Body mechanics, Postural training, Flexibilty training, Gait and locomotor training, Neuromotor de velopment, In an aquatic setting and Dynamic Lumbar Stabilization Comment: PATIENT REFUSING AQUATIC THERAPY AT THIS TIME BUT WILL CONSIDER IN THE FUTURE IF NEEDED. For the Purpose of:: To decrease pain, To increase ROM, To improve muscle performance and motor function, To increase tolerance to activity/condition/position, To improve ability of physical actions for home/community/work/leisure and To improve gait and locomotor functions Cryotherapy (ice pack, ice massage): Yes For the Purpose of:: To decrease pain and To decrease swelling/inflammation Text: Thank you for the opportunity to evaluate your patient. For Medicare and Medicare HMO plans, please review the plan of care and approve it. It will need to be FAXED BACK to us at [phone] for Medicare purposes. For Medicare only, by signing this I certify the plan of care. Please let me know if there are questions or concerns regarding this plan of care. Physician Signature: Date:
--- NOTE | 2023-03-04 13:46 | HP.PTREVAL ---
Re-Evaluation Intro: Dr. Naseem Maciel MD, It has been my pleasure to treat KEYONA GARCIA over the last 7 visits for FUSION POSTERIOR L2-S1 AND DECOMPRESSION L2-S1 01/05/23. Please see the progress note below for an update on the physical therapy plan of care! Subjective Subjective: PATIENT REPORTS SHE IS ABLE TO DO MORE NOW. STATES SHE IS TOLERATING MORE ACTIVITY. I AM ABLE TO DO A LOT MORE. PATIENT REPORTS SHE CAN GO LONGER BETWEEN EA PAIN PILL NOW - CURRENTLY EVERY 10 HOURS AND WAS TAKING IT EVERY 4 HOURS. STATES SHE NO LONGER HAS BACK PAIN AND HER PCP IS GOING TO HELP HER WEAN OFF HER PAIN MED'S BECAUSE SHE IS GETTING WITHDRAWL SX'S. I AM ABLE TO WALK FASTER AND GET IN AND OUT OF THE CAR EASIER. TAKING ONE TO TWO WALKS A DAY WITH THE LONGEST BEING 45 TO 50 MINUTES. STARTED GETTING R BUTTOCK AND THIGH PAIN LAST WEEK FOR NO APPARENT REASON - GETTING BETTER. FOLLOW UP WITH DR. MACIEL PENDING MAR 2023. STATES SHE ENDED UP TAKING ANTIBIOTICS FOR HER INCISION. REPORTS THE SWELLING IN HER LEGS IS GOING DOWN BUT HAS REDNESS IN HER L BIG TOE THAT SHE IS GOING TO SEE HER PCP ABOUT WEDNESDAY. STATES PCP IS AWARE OF TOE. REPORTS NUMBNESS JUST BELOW HER WAIST IS IMPROVING. Objective Objective/Function: PATIENT WAS SEEN TODAY FOR RE-ASSESSMENT OF PROGRESS TOWARD THE SET PT GOALS AND THE NEED FOR FURTHER PHYSICAL THERAPY VS READINESS FOR DISCHARGE. PATIENT IS MAKING GOOD PROGRESS WITH PT AND IS A GOOD CANDIDATE TO CONTINUE PT BASED ON PROGRESS MADE AND ROOM FOR FURTHER IMPROVEMENT. PATIENT IS AGREEABLE. UPON EXAM TODAY: PATIENT AMBULATES INDEP'LY INTO PT TODAY WITH ROLLATOR WITHOUT LOB BUT WITH L FOOT SLAP. PATIENT HAS NOT BEEN RELEASED BY SURGEON TO DRIVE YET AND IS USING OUR [facility] FOR [facility]AYDEE[facility]TS. INCISION LOOKS WELL HEALED WITHOUT ANY OPEN AREAS OR SIGNS OF INFECTION. Motor deficit: R LE: HIP 4/5, KNEE 4/5, ANKLE 4/5. L LE: HIP 4/5, KNEE 4/5, ANKLE 2+/5 NEGATIVE JUAN LE DURAL SIGNS. LUMBAR ROM - NT SEE TUG AND STS TEST RESULTS BELOW. Plan Plan Plan: *CHECK FOR NEW PT ORDER* CONT PT 2X'S A WK X 4 WKS PER SAME POC WTIH NEUTRAL SPINE ONLY IF NEW PHYSICIAN ORDERS REC'D. PATIENT AGREEABLE. POSTURE CORRECTION/STRENGTHENING, INSTRUCTION IN APPROPRIATE BODY MECHANICS AND ACTIVITY MODIFICATIONS. DLS WITH NEUTRAL SPINE ONLY. JAUN LE ROM, STRETCHING AND STRENGTHENING. HEP INSTRUCTION. Balance/Gait/Functional tests Balance/Special Test Scores Oswestry Low Back Score: 5 TUG Test Time Seconds: 21.67 Tug Test: 20-30sec.=variable mobility 30 Second Chair Rise Test Seconds: 5 Goals Goals Goal 1:: DECREASE C/O BACK AND JUAN LE SX'S Goal Time Frame: 8-12 Weeks Goal Progress: Progressing Goal 2:: IMPROVE PERSONAL CARE, LIFTING, WALKING, SITTING, STANDING, SLEEP, SOCIAL LIFE, TRAVEL AND HOMEMAKING FUNCTION. Goal Time Frame: 8-12 Weeks Goal Progress: Progressing Goal 3:: INSTRUCT IN PROPHYLAXIS Goal Time Frame: 8-12 Weeks Goal Progress: Progressing Anticipated Interventions Anticipated Interventions Patient/Client Instruction: Educate patient on: Condition, Plan of Care and Risk Factors For the Purpose of:: To improve self management Therapeutic Exercise to Include: Strength training, Body mechanics, Postural training, Flexibilty training, Gait and locomotor training, Neuromotor development, In an aquatic setting and Dynamic Lumbar Stabilization Comment: PATIENT REFUSING AQUATIC THERAPY AT THIS TIME BUT WILL CONSIDER IN THE FUTURE IF NEEDED. For the Purpose of:: To decrease pain, To increase ROM, To improve muscle performance and motor function, To increase tolerance to activity/condition/position, To improve ability of physical actions for home/community/work/leisure and To improve gait and locomotor functions Cryotherapy (ice pack, ice massage): Yes For the Purpose of:: To decrease pain and To decrease swelling/inflammation Re-Evaluation Ending Re-evaluation ending: Please do not hesitate to contact me at [phone] by phone or if you have questions or concerns regarding this new plan of care! Sincerely, Lidia Sheridan, PT, Cert MDT
--- NOTE | 2023-04-12 15:54 | HP.PTDCSUM_ITS ---
Discharge Summary D/C summary: It has been my pleasure to treat KEYONA GARCIA referred by Dr. Naseem Maciel MD, with the diagnosis of FUSION POSTERIOR L2-S1 AND DECOMPRESSION L2- S1 01/05/23 for a total of 14 visit(s). Discharge Date: 04/12/23 Please see the following information for a summary of their discharge status. Subjective Subjective: PATIENT REPORTS SHE IS ANEMIC AND SHE GETS fatigued. SHE REPORTS HER BLOOD WORK SHOWS IT IS GETTING BETTER. PATIENT REPORTS SHE HAD PAIN UPON ARRIVAL TODAY BUT THE EXERCISE HELPS IT GO AWAY. PATIENT REPORTS SHE TAKES TYLONOL DAILY FOR NERVE PAIN DIRECTED BY HER SURGEON AND SHE REPORTS THE NERVE PAIN IS MUCH BETTER THAN IT WAS. SHE STATES SHE FEELS SHE COULD GO WITHOUT THE TYLONOL BUT LIFE IS BETTER WITH IT. SHE REPORTS DR. MACIEL RELEASED HER FROM HER BENDING, LIFTING AND TWISTING RESTRICTIONS AND SHE IS DRIVING AGAIN NOW. FOLLOW UP WITH DR. MACIEL IS PENDING AGAIN IN JUNE [address]. [address] MACIEL IS AWARE OF HER L LE WEAKNESS AND HE TOLD HER IT IS GOING TO TAKE TIME FOR IT TO GET BETTER. SHE REPORTS SHE CAN TELL HER L LEG IS GETTING BETTER BECAUSE SHE CAN LIFT HER LEG UP BETTER IN THE SHOWER. SHE ALSO REPORTS HER FOOT DOESN'T SLAP ANYMORE. SHE STATES SHE DOES NOT FEEL SHE NEEDS MORE THERAPY FOR HER BACK. PATIENT REPORTS DR. MACIEL TOLD HER TO GET RID OF THE ROLLATOR AND SHE TOLD HIM SHE CAN'T. SHE REPORTS SHE IS STILL WEARING A BONE STIMULATOR AND WILL UNTIL 6 MO PO. SHE STATES SHE WALKS AROUND THE HOUSE WITHOUT ANY AD SOME BUT THE MORE SHE DOES THE MORE BENT OVER SHE GETS. SHE REPORTS IT DOESN'T HURT AND SHE DOESN'T FEEL LIKE SHE IS GOING TO FALL BUT SHE SLOUCHES. SHE USES THE CANE IN HER HOME SOMETIMES BUT ALWAYS USES THE ROLLATOR OUT OF THE HOUSE BECAUSE HER BACK GETS TIRED AND SHE STARTS SLUMPING. PATIENT REPORTS DR. MACIEL SAID HER BACK IS DOING GREAT AND SHE WANTS TO TAKE A BREAK FROM PT FOR A MONTH AND SEE HOW SHE DOES ON HER OWN BECAUSE SHE IS ON A FIXED INCOME AND HER CO-PAY FOR PT IS A LOT. PATIENT REPORTS SHE IS SEEING A CHIROPRACTOR FOR HER NECK AND IT IS GETTING BETTER. SHE REPORTS DR. MACIEL TOLD HER TO CONTINUE AND THAT SHE COULD DO PT TOO. SHE STATES SHE WANTS TO SEE HOW FAR SHE GETS WITH THE CHIROPRACTOR BEFORE TRYING PT FOR HER NECK. Pain LB: Pain Intensity (Out of 10): 0 R BUTTOCK AND THIGH: Pain Intensity (Out of 10): 0 Overall Improvement % Improvement: 90 Objective Objective/Function: PATIENT WAS SEEN TODAY FOR RE-ASSESSMENT OF PROGRESS TOWARD THE SET PT GOALS AND THE NEED FOR FURTHER PHYSICAL THERAPY VS READINESS FOR DISCHARGE. PATIENT IS MAKING GOOD PROGRESS WITH PT AND IS A GOOD CANDIDATE TO CONTINUE PT BASED ON PROGRESS MADE AND ROOM FOR FURTHER IMPROVEMENT HOWEVER PATIENT REPORTS IT IS BECOMING SOMEWHAT COST prohibitive FOR HER TO CONTINUE AND SHE WOULD LIEK TO TAKE A BREAK FOR A MONTH OR SO AND SEE HOW SHE DOES. SHE CONTINUES TO HAVE SIGNIFICANT CORE WEAKNESS AND HER QUALITY OF GAIT GREATLY DECREASES WITHOUT HER ROLLATOR. THIS PT GAVE HER THE PLATFORM WALKER ORDER WRITTEN BY DR. MACIEL SO SHE CAN CHECK WITH A DME CO. ABOUT INSURANCE COVERAGE. UPON EXAM TODAY: THIS PATIENT AMBULATES INDEP'LY WITH ROLLATOR WITHOUT LOB AND WITHOUT FOOT SLAP ON THE WAY IN BUT WITH FOOT SLAP ON THE WAY OUT. PATIENT STRUGGLES TO MAINTAIN UPRIGHT POSTURE EVEN WITH ROLLATOR > 50 FEET. WITHOUT AD SHE GREATLY SHORTENS HER STRIDE AND TRUNK FLEXION INCREASES WITHING 10 FEET. SHE IS ALSO UNSTEADY WITHOUT AD. THIS PT RECOMMENDED CONTINUED USE OF THE ROLLATOR AT ALL TIMES FOR SAFETY AND PATIENT STATES SHE AGREES. Motor deficit: R LE: HIP 4+/5, KNEE 5/5, ANKLE 5/5. L LE: HIP 4/5, KNEE 4+/5, ANKLE 2+ TO 3-/5. CORE STRENGTH - FAIR MINUS NEGATIVE JUAN LE DURAL SIGNS. LUMBAR ROM: FLEX - NIL EXT - LORENA R SG - MOD L SG - MOD PATIENT DENIES LOW BACK PAIN WITH LUMBAR ROM TESTING ALL PLANES. SHE ALSO DENIES RIGHT BUTTOCK PAIN WITH LUMBAR ROM TESTING. SEE TUG AND STS TEST RESULTS BELOW. Goals Goal 1:: DECREASE C/O BACK AND JUAN LE SX'S Goal Progress: Goal Met Goal 2:: IMPROVE PERSONAL CARE, LIFTING, WALKING, SITTING, STANDING, SLEEP, SOCIAL LIFE, TRAVEL AND HOMEMAKING FUNCTION. Goal Progress: Progressing Goal 3:: INSTRUCT IN PROPHYLAXIS Goal Progress: Progressing Plan Plan: D/C AT PATIENTS REQUEST. D/C Information d/c sentence: If there are questions or concerns regarding this patient's physical therapy, please feel free to call me at [phone]. Thank you for the referral of this patient. Sincerely, Lidia Sheridan, PT, Cert MDT Balance/Gait/Functional tests Balance/Special Test Scores Oswestry Low Back Score: 0 TUG Test Time Seconds: 16.52 Tug Test: <20 sec.=mostly independent 30 Second Chair Rise Test Seconds: 8 Improvement % Improvement: 90
== END 2023-04-12 19:00 | disposition home or self-care (01) ==
LOC: PT 14:00
PROVIDERS: PCP Internal Medicine; Referring Provider Orthopaedic Surgery Orthopaedic Surgery of the Spine; Visit Provider Orthopaedic Surgery Orthopaedic Surgery of the Spine
DX: M48.07 Spinal stenosis, lumbosacral region (principal); Z98.1 Arthrodesis status
CPT/HCPCS: 97110; 97162; 97164; 97530

== ENCOUNTER 2023-07-13 13:30 | Outpatient (RCR) | payer MEDICARE, SELFPAY ==
--- NOTE | 2023-06-21 12:14 | HP.PTEVAL_ITS ---
Patient's Visit Information Visit Information Visit Information: KEYONA GARCIA is a 77 year old F referred to Physical Therapy by Dr. Naseem Maciel MD with a diagnosis of CERVICAL SPONDYLOSIS WITH RADICULOPATHY. Date of Evaluation: 06/21/23 Physical Therapist: Lidia Sheridan, PT, Cert MDT Visit Plan Frequency: 2x /Week Duration: 4 Weeks Plan: STM TO R NECK SOFT TISSUE AND ULTRASOUND TO DECREASE R NECK PAIN. GENTLE NECK ROM/STRETCHING. CERVICAL ISOMETRICS. POSTURE CORRECTION/STRENGTHENING. SCAPULAR STRENGTHENING. Subjective Subjective: Work/Leisure: RETIRED Present symptoms: R NECK PAIN. I HEAR A LOT OF POPPING AND CRACKING GOING ON WHEN I MOVE IT. PATIENT DENIES JUAN UE SX'S. PATIENT REPORTS SHE IS HERE TODAY FOR HER NECK NOT HER LOW BACK. Present since: APPROX FEB 2023 Pain Scale: Worst - 7/10 Least - 4/10 Currently: 5/10 Commenced as a result of: TRYING TO TRANSITION OFF ROLLATOR TO CANE AFTER BACK SURGERY. Symptoms at onset: SAME LOCATION. LESS INTENSITY. Worse: LIFTING ROLLATOR IN AND OUT OF CAR, RIDING IN A CAR, DRIVING A CAR Better: NOTHING Disturbed sleep: SOMETIMES BUT DOES NOT THINK IT IS DUE TO NECK. Previous history/Previous treatment: PATIENT DENIES ANY PRIOR HISTORY OF NECK PROBLEMS OR NECK TREATMENTS. This episode: CHIROPRACTIC 2X'S A WK X 2 MONTHS WHICH DID NOT HELP AT ALL. JACKIE ESCOBAR REPORTS HE WOULD ONLY USE AN ACTIVATOR ON IT AND NOTHING ELSE DUE TO HER HAVING BACK SURGERY. SHE REPORTS RECENTLY CALLING DR. MACIEL TO REQUEST PT FOR HER NECK. Dizziness: NO Tinnitus: NO Nausea: NO Shortness of Breath: NO Difficulty Swollowing: NO Gait: AT HOME USES ROLLATOR OR NO AD. OUTSIDE OF HOME USES ROLLATOR. PATIENT DENIES ANY FALLS. Accidents: NO Unexplained weight loss: NO Imaging: RECENT NECK X-RAYS FEB 2023 SHOWING NECK ARTHRITIS AND BONE SPUR BUT THE PAIN IS COMING FROM A TIGHT MUSCLE PER PATIENT REPORT. SHE REPORTS THIS IS WHAT DR MACIEL TOLD HER. SHE STATES HE DID NOT RECOMMEND SURGERY. PMH/Recent major surgery: S/P LUMBAR FUSION AND DECOMPRESSION L2-S1 01/05/23. DX'D WITH LOW IRON 3 WKS AGO - GETTING DOUBLE IRON INFUSIONS CURRENTLY 1X/WK. A NXIETY. Objective Objective: Sitting Posture/Standing Posture: FORWARD HEAD. ROUNDED SHOULDERS L>R. PATIENT IS R HAND DOMINANT. NO TORTICOLLIS. Active Correction of posture: NE Sensory deficit: JUAN UE LIGHT TOUCH SENSATION GROSSLY INTACT AND SYMMETRICAL ROM deficit: JUAN UE'S WFL'S AND PATIENT DENIES INCREASED NECK PAIN WITH TESTING. Motor deficit: JUAN UE'S GROSSLY 4-5/5 AND PATIENT DENIES PAIN WITH TESTING. Scapular Strength: Fair. Dural Signs: NEGATIVE JUAN UE'S. Cervical Mvmt Loss: Flex: NIL Pro: NIL Ext: MOD Ret: LORENA RSB: LORENA LSB: LORENA R Rot: MOD L Rot: MOD PATIENT C/O INCREASED R NECK PAIN WITH EXT, RETRACTION, R SB AND R ROT ROM TESTING. ESPECIALLY R SB TESTING. Postural strength: POOR Palpation: INCREASED MUSCLE TONE JUAN CERVICAL MUSCULATURE R > LEFT BUT NO ACUTE TENDERNESS TODAY. TREATMENT: NEUROMUSCULAR REEDUCATION - RETRAINING OF MVMT AND POSTURE FOR SITTING, LYING AND STANDING ACTIVITIES. Balance/Special Test Scores Oswestry Neck Score: 18 Goals Goal 1:: DECREASE C/O R NECK PAIN BY AT LEAST 50% TO EASE ADL'S Goal Time Frame: 4-6 Weeks Goal 2:: INCREASE PAINFREE CERVICAL ROM TO EASE ADL'S. Goal Time Frame: 4-6 Weeks Goal 3:: PATIENT WILL BE INDEP WITH A HEP FOR CONTINUED IMPROVEMENT ONCE FORMAL PHYSICAL THERAPY CONCLUDES. Goal Time Frame: 4-6 Weeks Rehabilitation Potential Physical Therapy Diagnosis: NECK PAIN AND STIFFNESS. POSTURAL WEAKNESS. Rehabilitation Potential: Good Anticipated Interventions Patient/Client Instruction: Educate patient on: Condition, Plan of Care and Risk Factors For the Purpose of:: To improve self management Therapeutic Exercise to Include: Strength training, Body mechanics, Postural training, Flexibilty training, Neuromotor development and Scapular Strength/Stabilization For the Purpose of:: To decrease pain, To improve muscle performance and motor function, To increase tolerance to activity/condition/position and To improve ability of physical actions for home/community/work/leisure Manual Therapy Techniques to Include: Soft tissue mobilization For the Purpose of:: To decrease pain and To improve nutrient delivery to tissue Thermo therapy (hot pack): Yes Ultrasound (thermal/non thermal): Yes (100%, 1.3 W/CM2 X 8 MIN. JUAN POSTERIOR NECK REGIONS.) For the Purpose of:: To decrease pain and To improve nutrient delivery to tissue Text: Thank you for the opportunity to evaluate your patient. For Medicare and Medicare HMO plans, please review the plan of care and approve it. It will need to be FAXED BACK to us at [phone] for Medicare purposes. For Medicare only, by signing this I certify the plan of care. Please let me know if there are questions or concerns regarding this plan of care. Physician Signature: Date:
--- NOTE | 2023-07-13 14:13 | HP.PTDCSUM_ITS ---
Discharge Summary D/C summary: It has been my pleasure to treat KEYONA GARCIA referred by Dr. Naseem Mccurdy MD, with the diagnosis of CERVICAL SPONDYLOSIS WITH RADICULOPATHY for a total of 8 visit(s). Discharge Date: Please see the following information for a summary of their discharge status. Subjective Subjective: PATIENT REPORTS HER NECK DOESN'T HURT NOW WHEN SHE IS IN THE CAR. SHE ALSO REPORTS HER NECK ISN'T PAINFUL WHEN SHE TURNS HER HEAD NOW. SHE REPOR TS HER NECK PAIN IS INTERMITTENT NOW AND WHEN SHE DOES GET PAIN IT IS FLEETING. I APPRECIATE THE HELP. I COULDN'T HAVE DONE IT ON MY OWN. PATIENT REPORTS COMPLIANCE WITH HER HEP AND STATES SHE CAN TELL SHE IS GETTING STRONGER (ESPECIALLY WITH THE PUSH UP ON THE WASHER/DRYER) Pain c-spine: Pain Intensity (Out of 10): 2 Overall Improvement % Improvement: 80 Objective Objective/Function: PATIENT WAS SEEN TODAY FOR RE-ASSESSMENT OF PROGRESS TOWARD THE SET PT GOALS AND THE NEED FOR FURTHER PHYSICAL THERAPY VS READINESS FOR DISCHARGE. PATIENT HAS HAS MADE GREAT PROGRESS WITH PT AND IS INDEP WITH A HEP. SHE IS APPROPRIATE FOR DISCHARGE AND AGREEABLE. UPON EXAM TODAY: Motor deficit: JUAN UE'S GROSSLY 5/5 AND PATIENT DENIES PAIN WITH TESTING. Scapular Strength: GOOD Dural Signs: NEGATIVE JUAN UE'S. Cervical Mvmt Loss: Flex: NIL Pro: NIL Ext: MOD Ret: LORENA RSB: LORENA LSB: MOD R Rot: MIN TO MOD L Rot: MIN TO MOD PATIENT C/O STIFFNESS BUT DENIES PAIN WITH CERVICAL ROM TESTING ALL PLANES TODAY. Postural strength: FAIR. PATIENT JUNIOR'S IMPROVED POSTURE CONTROL DURING GAIT WITH ROLLATOR TODAY AND WHEN ASKED ABOUT IT STATES I'M WORKING ON IT'. SHE IS ONLY USING LIGHT PRESSURE ON HER HANDS ON ROLLATOR TODAY IN CLINIC. Palpation: INCREASED MUSCLE TONE JUAN CERVICAL MUSCULATURE R > LEFT BUT NO ACUTE TENDERNESS TODAY. Goals Goal 1:: DECREASE C/O R NECK PAIN BY AT LEAST 50% TO EASE ADL'S Goal Progress: Goal Met Goal 2:: INCREASE PAINFREE CERVICAL ROM TO EASE ADL'S. Goal Progress: Goal Met Goal 3:: PATIENT WILL BE INDEP WITH A HEP FOR CONTINUED IMPROVEMENT ONCE FORMAL PHYSICAL THERAPY CONCLUDES. Goal Progress: Goal Met Plan Plan: D/C TO HEP. D/C Information d/c sentence: If there are questions or concerns regarding this patient's physical therapy, please feel free to call me at [phone]. Thank you for the referral of this patient. Sincerely, Lidia Sheridan, PT, Cert MDT Balance/Gait/Functional tests Balance/Special Test Scores Oswestry Neck Score: 4 Improvement % Improvement: 80
== END 2023-07-13 19:00 | disposition home or self-care (01) ==
LOC: PT 13:30
PROVIDERS: PCP Internal Medicine; Visit Provider Orthopaedic Surgery Orthopaedic Surgery of the Spine
DX: M47.22 Other spondylosis with radiculopathy, cervical region (principal); Z98.1 Arthrodesis status
CPT/HCPCS: 97035; 97110; 97112; 97140; 97162; 97164

== ENCOUNTER 2024-01-20 00:13 | Emergency (ER) | payer MEDICARE, SELFPAY ==
[2024-01-20 00:16] VITALS: BP 107/58; PULSE 73; RESP 18; TEMP 36.1; O2SAT 96
[2024-01-20 00:18] VITALS: BMI 29.5
--- NOTE | 2024-01-20 00:50 | RAD_ITS ---
INDICATION: pain EXAMINATION/TECHNIQUE: X-RAY - RIGHT XR Hip Unilateral with Pelvis when performed; 2-3 Views COMPARISON: None. FINDINGS: No acute fracture or malalignment. No blastic or lytic lesions. Degenerative changes of the lumbar spine is seen. Bilateral total hip arthroplasties. No evidence of hardware failure loosening. Posterior fusion L3-S1. The soft tissues are unremarkable. RAD/HIP, UNI W/ Pelvis 2-3 Views IMPRESSION: No acute radiographic abnormalities. Electronically Signed: Wilson Barajas MD at 1:51 EDT ,
[2024-01-20] MEDS: predniSONE 20 MG Tablet 40 MG PO (01:07)
[2024-01-20] MEDS: HYDROcodone Bitartrate/Apap 5/325 Tablet PO (01:07)
--- NOTE | 2024-01-20 01:46 | EDS_ITS ---
HPI History of Present Illness Chief Complaint: Lower Extremity Injury Informant: patient Onset/Context/Timing Onset: Days Narrative Narrative: Patient presents secondary to right lower back and hip pain. She states on the evening of the she fell asleep sitting in her chair. She woke at 4 AM in the morning and when she tried to move she got sharp pain along the posterior right pelvis. She saw her PCP who prescribed a muscle relaxer but patient presents in the overnight hours secondary to increased pain. She states pain is started to spread down across the buttock and into her thigh. Pain is worse w ith movement. She has been taking Tylenol without improvement. [facility] Medical History Discitis Low back pain Restless leg syndrome Shortness of breath Edema Degenerative joint disease of left hip Wears glasses Walker as ambulation aid Arthritis Back pain Non-smoker Hoarseness Leg cramps History of echocardiogram History of stress test Cardiology follow-up encounter Spinal stenosis of lumbar region with radiculopathy Preop cardiovascular exam Spinal stenosis Neuropathy Vitamin D deficiency Abnormal EKG Polyarthritis Anxiety Home Medications ?Medication ?Instructions ?Recorded ?Last Taken ?Type buspirone 10 mg tablet 10 mg PO BID anxiety 11/06/14 10/26/22 History multivitamin with folic acid 400 1 tab PO DAILY supplement 11/06/14 10/25/22 History mcg tablet omega-3s 360 oz-uon-hpo-fish oil 1 ea PO DAILY supplement 11/06/14 10/25/22 History 1,200 mg-D3 1,000 unit capsule psyllium husk (aspartame) 3.4 gram 1 packet PO BID supplement 11/06/14 10/26/22 History oral powder packet (Metamucil Fiber Singles) docusate sodium 100 mg capsule 100 mg PO BID constipation 05/02/19 10/25/22 History glucosamine sulf dipot 1 ea PO BID supplement 05/02/19 10/25/22 History chlr,msm,chond 550 mg-C 30 mg-venkat 1 mg capsule magnesium oxide 400 mg (241.3 mg 400 mg PO DAILY supplement 05/05/19 10/25/22 History magnesium) tablet calcium 250 mg tablet 250 mg PO DAILY SUPPLEMENT 04/08/21 10/25/22 History elderberry fruit 200 mg capsule 200 mg PO DAILY SUPPLEMENT 04/08/21 10/25/22 History vitamin E 100 unit tablet 100 unit PO DAILY SUPPLEMENT 04/08/21 10/25/22 History metoprolol tartrate 25 mg tablet 25 mg PO BID bp 10/01/21 10/26/22 History ropinirole 0.25 mg tablet 0.25 mg PO QHS 11/10/21 10/25/22 History trazodone 50 mg tablet 50 mg PO QHS PRN Sleep 10/26/22 10/25/22 History acetaminophen 325 mg tablet 650 mg (2 x 325 mg) PO Q4H PRN PRN 10/29/22 Unknown Rx Fever, pain 1-05/04 #30 tabs gabapentin 100 mg capsule 100 mg PO BID #60 caps 10/29/22 Unknown Rx hydrocodone-acetaminophen 5-325mg 1 tab PO Q6H PRN PRN Pain 3 days 01/20/24 Unknown Rx 5mg-325mg #10 TABLETS prednisone 20 mg tablet 40 mg (2 x 20 mg) PO DAILY #8 tabs 01/20/24 Unknown Rx Allergy/AdvReac Type Severity Reaction Status Date / Time citalopram AdvReac ANXIETY Verified 01/20/24 00:16 fluoxetine AdvReac ANXIETY Verified 01/20/24 00:16 sertraline AdvReac ANXIETY Verified 01/20/24 00:16 venlafaxine HCl (From AdvReac ANXIETY Verified 01/20/24 00:16 Effexor) Family History Father Heart disease Mother Dementia Surgical History History of hip replacement, total History of back surgery History of cardiac catheterization History of total hip replacement History of total right knee replacement History of bilateral cataract extraction History of tonsillectomy Social History household members: none housing: condominium Smoking Status: Never smoker alcohol intake: never substance use type: does not use caffeine: Yes Type: carbonated beverages Number of servings: 1 and tea Number of servings: 1 ROS ROS ED Constitutional Constitutional ED: Denies chills or fever(s) Eyes Eyes: Denies discharge from eye(s) ENT ENT ED: Denies discharge from eye(s), rhinorrhea or sore throat Cardiovascular Cardiovascular: Denies chest pain Respiratory/Chest Respiratory/Chest: Denies cough or dyspnea Gastrointestinal Gastrointestinal: Denies abdominal pain, nausea or vomiting Genitourinary Genitourinary ED: Denies dysuria Musculoskeletal Musculoskeletal: Reports back pain and extremity pain Integumentary Denies Abrasions or rash Neurologic Neurologic: Denies headache(s) or weakness Psychiatric Psychiatric: Denies anxiety or depression Allergic/Immunologic Allergic/Immunologic ED: Denies lip swelling or urticaria EXAM Physical Exam Const Vital Signs: 01/20/24 00:16 Temperature 96.9 F L Temperature Source Temporal Pulse Rate 73 Respiratory Rate 18 Blood Pressure 107/58 L Blood Pressure Mean 74 Pulse Ox 96 Oxygen Delivery Method Room Air Positive well nourished and well developed General Appearance ED: well developed HEENT Reports moist mucous membranes Eyes EOMs intact bilaterally Neck no lymphadenopathy Chest Wall inspection of chest normal and palpation of chest normal Resp normal respiratory effort and clear to auscultation bilaterally Cardio regular rate and regular rhythm GI non-tender Palpation: soft Extremity Extremity Narrative: Reproducible tenderness over the right low lumbar paraspinals and over the sciatic notch into the right buttock region. Equal leg lengths noted. Good strength and sensation on testing. Neuro oriented x3 Skin no rashes or lesions noted MDM MDM MDM Narrative Medical decision making narrative: Patient does have bilateral hip replacements along with lumbar spinal surgery. In light of this pelvis and right hip x-rays are obtained. Per my interpretation hardware intact with no acute abnormalities noted. I do feel patient's symptoms are consistent with sciatica. I will give her a dose of [place] here along with a dose of prednisone to help with nerve inflammation. She can continue the tizanidine she was previously prescribed. Prescriptions for [place] and prednisone will be sent to the pharmacy for her. Return instructions provided. Patient comfortable with the plan. Radiography Diagnostic Testing: Clinical Impression(s) from Imaging Studies Hip/Pelvis X-Ray 01/20/24 00:50 IMPRESSION: No acute radiographic abnormalities. Electronically Signed: Wilson Barajas MD at 1:51 EDT , Discharge Plan Triage Chief Complaint: Lower Extremity Injury ED Provider: Meggan Bailey Dx/Rx/DC Orders Clinical Impression: Lumbar radiculopathy Instructions: ED Sciatica Prescriptions: New hydrocodone-acetaminophen 5-325 mg tablet 1 tab PO Q6H PRN PRN (Reason: Pain) 3 Days Qty: 10 0RF prednisone 20 mg tablet 40 mg PO DAILY Qty: 8 0RF No Action magnesium oxide 400 mg (241.3 mg magnesium) tablet 400 mg PO DAILY ropinirole 0.25 mg tablet 0.25 mg PO QHS Metamucil Fiber Singles 1 PACKET packet 1 packet PO BID Patient Comments: STOOL SOFTNER/FIBER multivitamin with folic acid 1 TABLET tablet 1 tab PO DAILY Patient Comments: SUPPLEMENT [id number] oil-D3 1 EACH capsule 1 ea PO DAILY Patient Comments: SUPPLEMENT buspirone 10 MG tablet 10 mg PO BID Patient Comments: ANXIETY/DEPRESSION glucos sul [id number] 1 EACH capsule 1 ea PO BID docusate sodium 100 MG capsule 100 mg PO BID calcium 250 mg Tablet 250 mg PO DAILY vitamin E 100 unit Tablet 100 unit PO DAILY elderberry fruit 200 mg Capsule 200 mg PO DAILY metoprolol tartrate 25 mg tablet 25 mg PO BID Patient Comments: TAKE 1 TABLET BY MOUTH TWICE DAILY trazodone 50 mg tablet 50 mg PO QHS PRN (Reason: Sleep) Patient Comments: TAKE 1 TABLET BY MOUTH AT BEDTIME NEEDED gabapentin 100 mg capsule 100 mg PO BID Qty: 60 1RF acetaminophen 325 mg Tablet 650 mg PO Q4H PRN PRN (Reason: Fever, pain 1-10/10) Qty: 30 0RF Primary Care Provider: Gloria Morales Referrals: Gloria Morales MD [Primary Care Provider] - 1 Week if not improving Print Language: Norwegian Disposition Disposition: Home, Self Care
[2024-01-20 02:06] VITALS: BP 137/76; PULSE 62; RESP 18; TEMP 36.3; O2SAT 99
== END 2024-01-20 02:09 | disposition home or self-care (01) ==
PROVIDERS: Emergency Provider Emergency Medicine; PCP Internal Medicine; Visit Provider Emergency Medicine
DX: M54.16 Radiculopathy, lumbar region (principal)
CPT/HCPCS: 73502; 99282

== ENCOUNTER 2024-03-06 14:00 | Outpatient (RCR) | payer MEDICARE, SELFPAY ==
--- NOTE | 2024-02-02 12:05 | HP.PTEVAL_ITS ---
Patient's Visit Information Visit Information Visit Information: KEYONA GARCIA is a 78 year old F referred to Physical Therapy by Dr. Naseem Mccurdy MD with a diagnosis of CERVICAL SPONDYLOSIS WITH RADICULOPATHY. Date of Evaluation: 02/02/24 Physical Therapist: Lidia Sheridan PT, Cert MDT Visit Plan Frequency: 2x /Week Duration: 2-4 Weeks Plan: US AT 1.3 W/CM2 X 8 MIN TO NECK TENDER AREAS AND STM. POSTURE TRAINING, STRETCHING AND STRENGTHENING WITH HEP INSTRUCTION. Subjective Subjective: Present symptoms: R NECK PAIN. PATIENT DENIES JUAN UE PAIN, NUMBNESS AND TINGLING. PATIENT REPORTS SHE JUST WANTS TO BE SEEN FOR HER NECK PAIN. SHE REPORTS SHE HAS EXERCISES FOR HER BACK AND SHE IS SEEING DR. WOOD FOR HER BACK TOO. SHE STATES DR. WOOD IS GOING TO GIVE HER AN INJECTION. Present since: MONTHS AGO Pain Scale: WORST 7/10, LEAST 0/10 Currently:N0/10 Commenced as a result of: LIFTING HEAVY ROLLATOR IN AND OUT OF CAR. 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 Worse: TURNING HEAD AND JUST MVMT. Better: HEADING HEAD STILL Disturbed sleep: YES Previous history/Previous treatment: PATIENT REPORTS SHE HAD THIS PROBLEM BEFORE TOO. IT WAS HELPED BY PT AND THEN IT CAME BACK. Dizziness: NO Tinnitus: NO Nausea: NO Shortness of Breath: NO Difficulty Swollowing: NO Gait: H/O BACK SURGERY AND WALKS WITH ROLLATOR. NO RECENT FALLS. DID FALL OFF SOFA A FEW YEARS AGO THOUGH THAT LEAD TO BACK SURGERY. Accidents: NO Imaging: RECENT X-RAYS OF NECK SHOWING BONE SPUR AND ARTHRITIS PER PATIENT REPORT. NO SURGERY RECOMMENDED PER PATIENT REPORT. PMH: ON MEDICATION FOR H/O RAPID HR. History of hip replacement, total History of back surgery History of cardiac catheterization History of B total hip replacement History of total right knee replacement Objective Objective: Sitting Posture/Standing Posture: FH. RSH'S. NO TORTICOLLIS. Other Observations: INDEP GAIT INTO PT WITH ROLLATOR. INDEP TRANSFERS Sensory deficit: JUAN UE LIGHT TOUCH SENSATION GROSSLY INTACT AND SYMMETRICAL ROM deficit: JUAN UE ROM WFL Motor deficit: JUAN UE STRENGTH GROSSLY 4/5 Dural Signs: NEGATIVE Cervical Mvmt Loss: Flex: NIL Pro: NIL Ext: MOD Ret: LORENA RSB: MOD LSB: MOD R Rot: MOD L Rot: MOD PATIENT C/O INCREASED R NECK PAIN WITH CERVICAL ROM TESTING ALL PLANES. Postural strength: POOR. Seated Cervical Distraction Testing: INCREASES R NECK PAIN Palpation: INCREASED MUSCLE TONE R UPPER TRAP AND SCALENE MUSCLES ALONG WITH TENDERNESS. Balance/Special Test Scores Oswestry Neck Score: 16 Goals Goal 1:: DECREASE C/O NECK PAIN BY AT LEAST 50% TO EASE ADL'S Goal Time Frame: 4-6 Weeks Goal 2:: PATIENT WILL BE ABLE TO DO HER CORE EX'S WITH 0-3/10 NECK PAIN Goal Time Frame: 4-6 Weeks Goal 3:: PATIENT WILL BE INDEP WITH A HEP FOR CONTINUED IMPROVEMENT ONCE FORMAL PHYSICAL THERPAY CONCLUDES. Rehabilitation Potential Physical Therapy Diagnosis: THIS PATIENT PRESENTS TO PHYSICAL THERAPY WITH C/O R NECK PAIN, FH, R SHLD'S, NECK TIGHTNESS/TENDERNESS, DECREASED NECK ROM AND POSTURAL WEAKNESS. Rehabilitation Potential: Good Anticipated Interventions Patient/Client Instruction: Educate patient on: Condition, Plan of Care and Risk Factors For the Purpose of:: To improve self management Therapeutic Exercise to Include: Strength training, Postural training, Flexi bilty training and Scapular Strength/Stabilization For the Purpose of:: To decrease pain, To increase ROM, To improve muscle performance and motor function, To increase tolerance to activity/condition/position and To improve ability of physical actions for home/community/work/leisure Manual Therapy Techniques to Include: Soft tissue mobilization For the Purpose of:: To decrease pain and To improve nutrient delivery to tissue Thermo therapy (hot pack): Yes Ultrasound (thermal/non thermal): Yes For the Purpose of:: To decrease pain and To improve nutrient delivery to tissue Text: Thank you for the opportunity to evaluate your patient. For Medicare and Medicare HMO plans, please review the plan of care and approve it. It will need to be FAXED BACK to us at [phone] for Medicare purposes. For Medicare only, by signing this I certify the plan of care. Please let me know if there are questions or concerns regarding this plan of care. Physician Signature: Date:
--- NOTE | 2024-03-06 14:54 | HP.PTDCSUM ---
Discharge Summary D/C summary: It has been my pleasure to treat KEYONA GARCIA referred by Dr. Naseem Maciel MD, with the diagnosis of CERVICAL SPONDYLOSIS WITH RADICULOPATHY for a total of 7 visit(s). Discharge Date: 03/06/24 Please see the following information for a summary of their discharge status. Subjective Subjective: PATIENT REPORTS SHE WAS GETTING BETTER BUT SHE AGGREVATED IT ABOUT 10 DAYS AGO WITH MOVING SOME RUBBERMAID CONTAINERS AND THEN AGAIN CUTTING WATERMELON. SHE STATES SHE APPRECIATES THE EX'S WE HAVE GIVEN HER AND SHE FEELS HER MUSCLES ARE GETTING STRONGER BUT HER PAIN ISN'T REALLY ANY BETTER. Pain neck: Pain Intensity (Out of 10): 5 R hip: Pain Intensity (Out of 10): 0 Overall Improvement % Improvement: 0 Objective Objective/Function: UPON EXAM TODAY THIS PATIENT IS INDEP WITH A HEP PROGRAM FOR POSTURE CORRECTIONS BUT HER SYMPTOMS ARE EASILY PROVOKED WITH LIGHT LIFTING, PUSHING AND PULLING ACTIVITIES AND SHE IS NOT MAKING PROGRESS WITH PT. UPON EXAM TODAY THERE ARE NO SIGNIFICANT CHANGES SINCE INITIAL EVAL. SHE STATES DR. MACIEL SAID THERE ISN'T ANYTHING HE CAN DO FOR HER SO SHE PLANS TO CONSULT DR. WOOD. Goals Goal 1:: DECREASE C/O NECK PAIN BY AT LEAST 50% TO EASE ADL'S Goal Progress: Not Progressing Goal 2:: PATIENT WILL BE ABLE TO DO HER CORE EX'S WITH 0-3/10 NECK PAIN Goal Progress: Not Progressing Goal 3:: PATIENT WILL BE INDEP WITH A HEP FOR CONTINUED IMPROVEMENT ONCE FORMAL PHYSICAL THERPAY CONCLUDES. Goal Progress: INDEP HEP. Plan Plan: D/C DUE TO LACK OF ON-GOING PROGRESS. D/C Information d/c sentence: If there are questions or concerns regarding this patient's physical therapy, please feel free to call me at [phone]. Thank you for the referral of this patient. Sincerely, Lidia Sheridan, PT, Cert MDT Balance/Gait/Functional tests Balance/Special Test Scores Oswestry Neck Score: 14 Improvement % Improvement: 0
== END 2024-03-06 19:00 | disposition home or self-care (01) ==
LOC: PT 14:00
PROVIDERS: PCP Internal Medicine; Referring Provider Orthopaedic Surgery Orthopaedic Surgery of the Spine; Visit Provider Orthopaedic Surgery Orthopaedic Surgery of the Spine
DX: M47.22 Other spondylosis with radiculopathy, cervical region (principal); M43.16 Spondylolisthesis, lumbar region; Z98.1 Arthrodesis status
CPT/HCPCS: 97035; 97110; 97140; 97162; 97530

== ENCOUNTER → 2024-03-18 | Outpatient (CLI) | payer MEDICARE, SELFPAY ==
--- NOTE | 2024-03-18 10:35 | RAD_ITS ---
STUDY: X-RAY - CERVICAL SPINE REASON FOR EXAM: Female, 78 years old. Spondylosis without myelopathy or radiculopathy, cervical region TECHNIQUE: 3 view(s) of the cervical spine were obtained. COMPARISON: None FINDINGS: There are degenerative changes of the anterior atlantoaxial articulation. Normal odontoid process. There is straightening of the normal cervical lordosis. Marked degree of disc space narrowing and spondylosis at the C4-C5 and C5-C6 levels. Facet joint osteoarthritis. The soft tissue structures are unremarkable. RAD/Cerv Spine 2 or 3 Views IMPRESSION: Marked in degree of disc space narrowing and spondylosis at the C4-C5 and C5-C6 levels. Electronically Signed: Marcello Mireles MD at 14:04 EDT ,
== END | disposition home or self-care (01) ==
LOC: RAD 10:28
PROVIDERS: PCP Internal Medicine; Referring Provider Anesthesiology Pain Medicine; Visit Provider Anesthesiology Pain Medicine
DX: M47.812 Spondylosis without myelopathy or radiculopathy, cervical region (principal)
CPT/HCPCS: 72040